=== PATIENT | female | born 1955 | race Two or more races ===

== ENCOUNTER 2021-03-02 15:17 | Inpatient (IN) | payer BC, SELFPAY ==
[2021-03-02] VITALS (8 sets, daily range): BP systolic 151–206; BP diastolic 64–87; PULSE 59–76; RESP 15–21; TEMP 36.2–38.1; O2SAT 95–99; BMI 44.9
--- NOTE | ~2021-03-02 | MR_ITS ---
EXAMINATION: MR MRCP wo/w con/w 3D wo ind DATE: 03/03/2021 12:57 INDICATION: Biliary duct dilatation. Right upper quadrant abdominal pain. TECHNIQUE: Magnetic resonance imaging (MRI) of the abdomen was performed without and with 20 mL Multi Maia intravenous contrast. Sequences included coronal T2-weighted FS FSE, coronal T2-weighted FSE, a xial T1-weighted LAVA, coronal FS FIESTA, axial dual-echo T1-weighted SPGR, coronal lava-FLEX, sagitt al T2-weighted FSE, axial T2-weighted FSE, and axial DWI. Thick-slab T2-weighted FSE images were obta ined for magnetic resonance cholangiopancreatography (MRCP). Maximum intensity projection 3-D reconst ructions of the volumetric data were created by the technologist. Postcontrast sequences included cor onal LAVA-flex and time course of axial T1-weighted LAVA. COMPARISON: CT abdomen and pelvis 03/02/2021 FINDINGS: ABDOMEN MRI: There is diffuse hepatic steatosis. There is moderate intrahepatic biliary duct dilatati on. There are gallstones in the gallbladder, which is distended. There is a gallstone in the gallblad alexia neck. Gallbladder wall thickening is noted. There is edema around the gallbladder. The spleen, pa ncreas, and adrenal glands are normal. There are cysts in the kidneys measuring up to 7 mm on the lef t. There are no dilated loops of bowel. There are no pathologically enlarged lymph nodes. There is no free intraperitoneal fluid. ABDOMEN MRCP: The common duct is dilated to 15 mm. No choledocholithiasis. IMPRESSION: 1. Acute cholecystitis. 2. Moderate intrahepatic and extrahepatic biliary duct dilatation. No choledocholithiasis identified. Reviewed, dictated and finalized at location A. IMPRESSION: 1. Acute cholecystitis. 2. Moderate intrahepatic and extrahepatic biliary duct dilatation. No choledoch olithiasis identified.
--- NOTE | ~2021-03-02 | XR_ITS ---
EXAMINATION: XR cholangiogram surg 1st inj DATE: 03/04/2021 13:50 INDICATION: Laparoscopic cholecystectomy TECHNIQUE: 104 fluoroscopic images of the right upper quadrant were obtained during intraoperative ch olangiography performed by the surgeon. I was not present in the operating room. Fluoroscopy exposure time was 57.1 seconds. COMPARISON: None. FINDINGS: The common bile duct and intrahepatic ducts are dilated. No choledocholithiasis is identifi ed. IMPRESSION: 1. Dilated common bile duct without evidence of stones. Reviewed, dictated and finalized at location B.
--- NOTE | ~2021-03-02 | CT_ITS ---
EXAMINATION: CT abdomen pelvis w con DATE: 03/02/2021 19:35 INDICATION: Abdominal pain. TECHNIQUE: Computed tomography (CT) of the abdomen and pelvis was performed with 100 mL Omnipaque-350 intravenous contrast. Automated exposure control and iterative reconstruction technique were employe d. The dose-length product was 1375.18 mGy-cm. COMPARISON: None FINDINGS: Mild discoid atelectasis at the lingula. Heart size is normal. No pericardial or pleural effusion. Ga llstones within the gallbladder with either edematous gallbladder wall thickening and/or pericholecys tic edema consistent with acute cholecystitis. The common bile duct is dilated to 13 mm and there is mild central intrahepatic biliary ductal dilation suggesting possibility of a distal obstructing ston e. Liver is otherwise normal. Spleen, pancreas and bilateral adrenal glands are normal. Symmetric viviane al parenchymal enhancement with no hydronephrosis. No abnormal bowel wall thickening or obstruction. Normal appendix. Bladder, anteverted uterus and bilateral adnexa are unremarkable. No free intraperit quick gas or fluid. No pathologically enlarged abdominal or pelvic lymphadenopathy. Small fat-contain ing left inguinal hernia. Anterior fusion at L5-S1. Severe lumbar facet osteoarthritis with posterior fusion bilaterally at L4-L5 and L5-S1. Severe osteitis pubis. IMPRESSION: 1. Cholelithiasis and acute cholecystitis with dilation of the common bile duct and central intrahepa tic biliary ducts suggesting possibility of distal obstructing stone. Correlate with liver function t ests. If this would affect clinical management could consider MRCP for further evaluation. Reviewed, dictated and finalized at location A. IMPRESSION: 1. Cholelithiasis and acute cholecystitis with dilation of the common bile duct and central intrahepatic biliary ducts suggesting possibility of distal obstru cting stone. Correlate with liver function tests. If this would affect clinical management could consider MRCP for further evaluation.
[2021-03-02 15:50] LABS: Basophils Percent Auto 0.1 % (0.2-1.2); Hematocrit 41.3 % (37.0-47.0); Immature Granulocyte Absolute 0.04 K/mm3 (0.00-0.031); Immature Granulocyte Percent A 0.3 % (0-0.5); Lymphocytes Absolute Auto 1.98 K/mm3 (0.9-3.2); Lymphocytes Percent Auto 16.5 % (18.3-44.2); Mean Corpuscular HGB Conc 33.9 g/dl (32-36); Mean Corpuscular Hemoglobin 29.4 pg (26-34); Mean Corpuscular Volume 86.6 fl (80-100); Mean Platelet Volume 9.3 fl (7.4-10.4); Monocytes Absolute Auto 0.5 K/mm3 (0.1-0.6); Monocytes Percent Auto 4.1 % (2.6-8.5); Neutrophils Absolute Auto 9.5 K/mm3 (1.3-6.7); Platelet Count Result 274 k/mm3 (150-375); Red Blood Count 4.77 M/mm3 (4.2-5.4); Red Cell Distribution Width 12.6 % (11.5-14.5)
[2021-03-02 16:08] LABS: Alanine Aminotransferase 22 U/L (4-35); Albumin Level 4.9 g/dL (3.5-5.1); Alkaline Phosphatase 70 U/L (38-126); Anion Gap 13 mmol/L (8-16); Aspartate Amino Transferase 25 U/L (14-36); Bilirubin,Total 0.6 mg/dL (0.2-1.3); Blood Urea Nitrogen 18 mg/dL (7-17); Calcium 10.4 mg/dL (8.4-10.2); Carbon Dioxide 24 mmol/L (22-30); Chloride 98 mmol/L (98-107); Estimated CRCL calculation 76 ml/min; Estimated Glomerular Filt Rate > 60; Glucose 190 mg/dL (65-110); Lipase 95 U/L (23-300); Potassium 3.3 mmol/L (3.4-5.0); Sodium 135 mmol/L (137-145)
[2021-03-02] MEDS: SODIUM CHLORIDE 0.9% IV 1,000 ML 150 ML IV CONT (18:38)
[2021-03-02] MEDS: MORPHINE SULFATE (*CRX) 4 MG/ML INJ IV PUSH ×2 (18:38→22:26)
[2021-03-02] MEDS: ONDANSETRON INJ 4 MG/2 ML VIAL IV PUSH ×2 (18:38→23:22)
[2021-03-02] MEDS: PANTOPRAZOLE SODIUM IV 40 MG VIAL IV PUSH (18:38)
[2021-03-02 19:21] LABS: Add Urine Microscopic? YES; Appearance Urine Clear (Clear); Bilirubin Urine Negative (Negative); Blood Urine 1+ (Negative); Color Urine Yellow (Yellow); Glucose Urine UA Negative (Negative); Ketones Urine 1+ mg/dL (Negative); Leukocyte Esterase Ur 1+ LEU/UL (Negative); Mucus Urine Rare /lpf; Nitrate Urine Negative (Negative); Protein Urine 2+ mg/dL (Negative); Specific Grav Ur 1.017 (1.001-1.035); Squamous Epithelial Cell Urine Few /hpf (Few); Urobilinogen Urine Negative mg/dL (<2.0)
--- NOTE | 2021-03-02 20:12 | ED.ABDPAIN ---
HPI - Abdominal Pain General Chief Complaint: Abdominal Pain Stated Complaint: abd pain Time Seen by Provider: 03/02/21 18:01 Source: patient and family Mode of arrival: wheelchair Limitations: language barrier History of Present Illness HPI narrative: 65-year-old Slovak. My with a history of hypertension, hyperlipidemia, diabetes was brought in by daughter with complaints of upper abdominal pain on and off for past 1 month daughter states that she has been giving xwyr-xek-tycrtlw acid suppressor for past 1 month however since last evening she has been having more pain had vomited once. She denied any fever or chills she states her pain has been more intense since this morning . MD elicited complaint: abdominal pain Pertinent past history: none Onset (ago): day(s) (1) Pain Consistency: constant Location: epigastric and RUQ Severity: moderate Quality: aching Radiation: none Migration to: no migration Exacerbating factors: nothing Relieving factors: nothing Associated symptoms: nausea and vomiting Related Data Allergies Allergy/AdvReac Type Severity Reaction Status Date / Time No Known Allergies Allergy Verified 03/02/21 20:23 Review of Systems Review of Systems: All systems reviewed & are unremarkable except as noted in HPI and below Constitutional: Constitutional: Reports no additional constitutional complaints Eyes: Eyes: Reports no additional eye complaints ENT: Reports system reviewed and no additional complaints, except as documented Cardiovascular: Cardiovascular: Reports no additional cardiovascular complaints Respiratory: Respiratory: Reports no additional respiratory complaints Gastrointestinal: Gastrointestinal: Reports as per HPI Musculoskeletal: Musculoskeletal: Reports no additional musculoskeletal complaints Neurologic: Reports system reviewed and no additional complaints, except as documented PMFSH Social History Social History Gender identity (if verbalized by the patient): Female Exam Narrative: GENERAL: Well-appearing, well-nourished, and in moderate amount of pain HEAD: Normocephalic, atraumatic. EYES: PERRLA and EOMI.. NECK: Supple. CHEST: Clear to auscultation. No respiratory distress. HEART: Regular rate and rhythm. No murmur heard. Normal peripheral pulses. ABDOMEN: Soft, moderate amount of tenderness in the epigastric and right upper quadrant area, nondistended, normal active bowel sounds. EXTREMITIES: Normal range of motion. No edema. SKIN: Warm, dry, no rash. NEURO: No focal deficits. Alert and oriented x3. PSYCH: Normal mood and affect. Course Course Emergency Course: Patient started feeling much better after pain medication. I have reviewed the lab, CT findings with the daughter. I discussed with Doctor Graham Alcala about this patient see the patient in consult. Vital Signs Vital signs: Vital Signs Temperature 36.2 C L 03/02/21 15:29 Pulse Rate 65 03/02/21 15:29 Respiratory Rate 16 03/02/21 15:29 Blood Pressure 180/81 H 03/02/21 15:29 Pulse Oximetry 98 03/02/21 15:29 Temperature 36.7 C 03/02/21 18:10 Pulse Rate 73 03/02/21 19:40 Respiratory Rate 16 03/02/21 19:40 Blood Pressure 164/68 H 03/02/21 19:40 Pulse Oximetry 95 03/02/21 19:40 MDM - Abdominal Pain MDM Narrative Medical decision making narrative: With a given history of upper abdominal pain do CBC chemistry and also do a CT of the abdomen to make sure she has no high-grade small bowel obstruction or she has perforated gastric ulcer or cholecystitis. Will given IV morphine for pain and IV fluids. Lab Data Result diagrams: 03/02/21 15:40 03/02/21 15:40 Labs: Lab Results 03/02/21 03/02/21 03/02/21 Range/Units 15:40 15:40 19:09 WBC 12.0 H (4.5-10.0) K/mm3 RBC 4.77 (4.2-5.4) M/mm3 Hgb 14.0 (12.0-15.0) g/dL Hct 41.3 (37.0-47.0) % MCV 86.6 (80-100) fl MCH 29.
[2021-03-02] MEDS: ERTAPENEM 1 GM/NS 50 ML 1 GM/50 ML BAG IVPB (20:52)
[2021-03-02] MEDS: SODIUM CHLORIDE 0.9% IV 1,000 ML 100 ML IV CONT (20:53)
--- NOTE | 2021-03-02 21:31 | PC.NURSE ---
Attempted to call report. RN not available. Will call back
[2021-03-02] MEDS: FAMOTIDINE 20 MG/2 ML VIAL IV PUSH (23:23)
--- NOTE | 2021-03-02 23:33 | PM.IMHP ---
H&P: HPI History of Present Illness Date/Time: 03/02/21 23:33 Chief Complaint: Abdominal pain Narrative: 65-year-old female with a history of hypertension, hyperlipidemia, diabetes was brought in by daughter with complaints of upper abdominal pain on and off for past 1 month however has been worsening since past 3 days. Has been using [id number]-uwcllfc as his pressure for the past month but over the past few days she has been vomiting and worsening belly pain. She denies any fever and chills. No diarrhea. She does not speak Azeri well and history is limited because of that. Most of the history is taken from ED records and from the patient Review of Systems Review of Systems: - CONSTITUTIONAL: Denies weight loss, fever and chills. - HEENT: Denies changes in vision and hearing - RESPIRATORY: Denies SOB and cough. - CV: Denies palpitations and CP. - GI: Reports abdominal pain, nausea, vomiting and denies diarrhea. - : Denies dysuria and urinary frequency. - MSK: Denies myalgia and joint pain. - SKIN: Denies rash and pruritus. - NEUROLOGICAL: Denies headache and syncope. - PSYCHIATRIC: Denies recent changes in mood. Denies anxiety and depression. All systems reviewed & are unremarkable except as noted in HPI and below Constitutional: Constitutional: Reports fatigue and Reports weakness Neurologic: Reports weakness Endocrine: Endocrine: Reports fatigue PMFSH Social History Social History Gender identity (if verbalized by the patient): Female Meds Home Medications and Allergies Home Medications Medication Instructions Recorded Confirmed Type CoQ10 SG 100 03/02/21 History carvedilol 03/02/21 History hawthorn correia mg PO 03/02/21 History hydrochlorothiazide 03/02/21 History levothyroxine 03/02/21 History lisinopril 03/02/21 History magnesium chloride mg PO 03/02/21 History metformin mg 03/02/21 History omeprazole 20 mg PO BID 03/02/21 History oxybutynin chloride 03/02/21 History sertraline mg 03/02/21 History simvastatin mg 03/02/21 History Allergies Allergy/AdvReac Type Severity Reaction Status Date / Time No Known Allergies Allergy Verified 03/02/21 20:23 Vital Signs Vital Signs - 24 hr 03/02/21 15:29 03/02/21 18:10 03/02/21 19:40 Temperature 97.2 F L 98.1 F Pulse Rate 65 68 73 Respiratory Rate 16 21 H 16 Blood Pressure 180/81 H 206/87 H 164/68 H Pulse Oximetry 98 99 95 03/02/21 20:15 03/02/21 21:07 03/02/21 21:15 Temperature Pulse Rate 72 69 76 Respiratory Rate 17 17 15 Blood Pressure 151/64 H Pulse Oximetry 95 96 98 03/02/21 22:36 03/02/21 22:50 Temperature 100.5 F H Pulse Rate 73 59 L Respiratory Rate 18 20 Blood Pressure 151/64 H 161/74 H Pulse Oximetry 97 97 Exam Narrative: GENERAL: The patient is well developed, not in acute distress HEENT: Nonicteric sclerae, PERRLA, EOMI. Oropharynx clear. Moist mucous membranes. Conjunctivae appear well perfused. CHEST: Chest wall is nontender. HEART: Regular rate and rhythm without murmur, rubs, or gallops LUNGS: Clear to auscultation bilaterally. no respiratory distress ABDOMEN: Soft, distended, tender epigastrium and right upper quadrant area no organomegaly no rigidity SKIN: No rash, no excessive bruising, petechiae, or purpura. NEUROLOGIC: Cranial nerves II-XII intact, alert and oriented x 3, no gross motor deficits EXTREMITIES: no edema, cyanosis or clubbing Extrem: General: normal exam except as noted and no edema H&P: Results Labs Labs: Short CBC 03/02/21 Range/Units 15:40 WBC 12.0 H (4.5-10.0) K/mm3 Hgb 14.0 (12.0-15.0) g/dL Hct 41.3 (37.0-47.0) % Plt Count 274 (150-375) k/mm3 BMP 03/02/21 15:40 Sodium 135 L Potassium 3.3 L Chloride 98 Carbon Dioxide 24 BUN 18 H Creatinine 0.80 Glucose 190 H Calcium 10.4 H Liver Function 03/02/21 Range/Units 15:40 Total Bilirubin
[2021-03-03] MEDS: MORPHINE SULFATE (*CRX) 4 MG/ML INJ IV PUSH ×7 (01:27→22:50)
--- NOTE | 2021-03-03 02:02 | ADMGEN ---
This patient, Naresh Houston, was admitted to [facility] Surg Room 321-02. Patient/family oriented to hospital policies and general routines including ID bracelet, bed and alarms, visiting hours, pain management, procedures, bathroom and other care routines, personal items, smoking policy, room service/diet, and visiting hours. Information on how to activate the Rapid Response Team has been discussed. Patient/Family are encouraged to report perceived risks to care and to ask questions if they do not understand what they are told or what they should do.
[2021-03-03 02:13] VITALS: O2SAT 97
[2021-03-03] MEDS: ONDANSETRON INJ 4 MG/2 ML VIAL IV PUSH ×4 (04:41→18:57)
[2021-03-03 05:46] VITALS: BP 119/51; PULSE 69; RESP 20; TEMP 37.1; O2SAT 93
[2021-03-03 07:18] LABS: Basophils Percent Auto 0.2 % (0.2-1.2); Hematocrit 38.6 % (37.0-47.0); Hemoglobin 12.5 g/dL (12.0-15.0); Immature Granulocyte Absolute 0.04 K/mm3 (0.00-0.031); Immature Granulocyte Percent A 0.3 % (0-0.5); Lymphocytes Absolute Auto 1.28 K/mm3 (0.9-3.2); Lymphocytes Percent Auto 10.4 % (18.3-44.2); Mean Corpuscular HGB Conc 32.4 g/dl (32-36); Mean Corpuscular Volume 89.6 fl (80-100); Mean Platelet Volume 9.6 fl (7.4-10.4); Monocytes Absolute Auto 0.9 K/mm3 (0.1-0.6); Neutrophils Absolute Auto 10.1 K/mm3 (1.3-6.7); Neutrophils Percent Auto 82.1 % (45.5-73.1); Platelet Count Result 235 k/mm3 (150-375); Red Blood Count 4.31 M/mm3 (4.2-5.4); White Blood Count 12.3 K/mm3 (4.5-10.0)
[2021-03-03 07:47] LABS: Alanine Aminotransferase 28 U/L (4-35); Albumin Level 3.8 g/dL (3.5-5.1); Alkaline Phosphatase 56 U/L (38-126); Anion Gap 10 mmol/L (8-16); Aspartate Amino Transferase 40 U/L (14-36); Bilirubin,Total 0.4 mg/dL (0.2-1.3); Blood Urea Nitrogen 12 mg/dL (7-17); Calcium 8.8 mg/dL (8.4-10.2); Carbon Dioxide 29 mmol/L (22-30); Chloride 95 mmol/L (98-107); Estimated CRCL calculation 70 ml/min; Estimated Glomerular Filt Rate > 60; Glucose 166 mg/dL (65-110); Potassium 3.5 mmol/L (3.4-5.0); Sodium 134 mmol/L (137-145)
[2021-03-03] MEDS: FAMOTIDINE 20 MG/2 ML VIAL IV PUSH ×2 (08:40→22:51)
[2021-03-03] MEDS: PANTOPRAZOLE SODIUM IV 40 MG VIAL IV PUSH (08:40)
[2021-03-03 09:00] VITALS: BP 133/50; PULSE 72; RESP 18; TEMP 36.2; O2SAT 98
--- NOTE | 2021-03-03 11:41 | PM.CNGS ---
Assessment and Plan Assessment and plan (1) Acute cholecystitis due to biliary calculus: Code(s): K80.00 - Calculus of gallbladder with acute cholecystitis without obstruction Status: Acute Assessment and Plan: CT scan reviewed and discussed with the patient and her son in detail. She has evidence of acute cholecystitis with cholelithiasis. Also noted is a dilated CBD measuring up to 13 mm and central intrahepatic biliary ducts suggesting possibility of distal obstructing stone. LFTs are normal and she has mild leukocytosis. Normal lipase. GI has been consulted and an MRCP has been ordered for today. If there is evidence of choledocholithiasis, then will allow GI to decipher their plan of care before proceeding with surgical intervention. I discussed the pathophysiology of gallbladder disease and potential complications associated with this. Prior to this acute episode, it sounds like she has been dealing with more mild symptoms for years, which could also be related to the gallbladder or also other etiologies. We discussed treatment options at this point. She will likely ultimately need a cholecystectomy, which would be by Dr. Francis. Description of a laparoscopic cholecystectomy, the risks, benefits, expected outcomes, and expected recovery were discussed with the patient in detail. All questions were answered. We will decide on timing of surgery after GI's evaluation. Would agree with IV Zosyn, IV fluids, analgesics, and NPO status while pending the MRCP. Thank you for allowing us to see the patient in consultation and we will continue to follow along with you. (2) Choledocholithiasis: Code(s): K80.50 - Calculus of bile duct without cholangitis or cholecystitis without obstruction Status: Acute Assessment and Plan: Dilated CBD on imaging up to 13 mmm, although normal LFTs. GI consulted. MRCP planned for today. May need an ERCP if choledocholithiasis is noted. (3) Diabetes mellitus type 2 in nonobese: Code(s): E11.9 - Type 2 diabetes mellitus without complications Status: Acute Assessment and Plan: Increases risks of surgery. (4) Hypertension: Code(s): I10 - Essential (primary) hypertension Status: Acute (5) Hyperlipidemia: Code(s): E78.5 - Hyperlipidemia, unspecified Status: Acute (6) Morbid obesity: Code(s): E66.01 - Morbid (severe) obesity due to excess calories Status: Acute Assessment and Plan: Increases surgical risks. Additional Plan I have discussed the patient's case and plan of care with Dr. Francis. History of Present Illness Consult details Consult date: 03/03/21 Reason for consult: other (Acute cholecystitis and abnormal findings on CT scan of biliary system) Requesting physician: Devang Rodriguez MD Narrative: This is a 65-year-old morbidly obese female who speaks Bermudian and has a history of hypertension, hyperlipidemia, and type 2 diabetes. Her son and POA, Celestino, is at the bedside and is translating for the patient per her request. He speaks fluent Polish and is able to translate during our discussion, which they requested rather than using the Easy[employer] device. The patient has apparently been dealing with upper abdominal pain for many years. Typically this is more mild and will come and go. She was told about 17 years ago that she had cholelithiasis, incidentally found on imaging while she was living in [place]. Over the past year, she has felt that her symptoms have become progressively worse and more frequent. Two days ago, she had a sudden onset of worsening upper abdominal pain in the evening after dinner. She had eaten a baked [place]ian reynolds dish with meat and salad. She began to have nausea and vomiting through the night. The pain continued yesterday, and she attempted to take omeprazole for her symptoms, which did not relieve her pain. She felt chilled and feverish, but did not take her temperature. Ultimately, she came into the ER
[2021-03-03 14:00] VITALS: BP 143/53; PULSE 69; RESP 16; TEMP 36.8; O2SAT 94
--- NOTE | 2021-03-03 16:39 | WPDANESEPP ---
Anes - Eval Pre Procedure Procedure: Operation Date: 03/04/21 12:00 Proposed Procedures p Laparoscopic Cholecystectomy with Intraoperative Cholangiogram - Edu Francis MD Date/Time: 03/03/21 16:39 Pre Op Diagnosis: Acute Cholecystitis Patient Data Age: 65 Gender: F Height: 1.57 m Weight: 111.5 kg Last Vital Signs Temp 98.3 F 03/03/21 14:00 Pulse 69 03/03/21 14:00 Resp 16 03/03/21 14:00 BP 143/53 H 03/03/21 14:00 Pulse Ox 94 03/03/21 14:00 Allergies Allergy/AdvReac Type Severity Reaction Status Date / Time No Known Allergies Allergy Verified 03/02/21 20:23 Home Medications Medication Instructions Recorded Confirmed Type CoQ10 SG 100 200 mg PO DAILY 03/02/21 03/03/21 History carvedilol 12.5 mg PO BID 03/02/21 03/03/21 History hawthorn correia 565 mg PO DAILY 03/02/21 03/03/21 History hydrochlorothiazide 25 mg PO DAILY 03/02/21 03/03/21 History lisinopril 40 mg PO DAILY 03/02/21 03/03/21 History magnesium chloride mg PO 03/02/21 History metformin 1,000 mg PO BID 03/02/21 03/03/21 History omeprazole 20 mg PO BID 03/02/21 03/03/21 History oxybutynin chloride 5 mg PO BID 03/02/21 03/03/21 History sertraline 50 mg PO BID 03/02/21 03/03/21 History simvastatin 20 mg PO DAILY 03/02/21 03/03/21 History Laboratory Tests 03/02/21 03/03/21 03/03/21 19:09 06:47 06:47 WBC 12.3 K/mm3 H K/mm3 (4.5-10.0) RBC 4.31 M/mm3 M/mm3 (4.2-5.4) Hgb 12.5 g/dL g/dL (12.0-15.0) Hct 38.6 % % (37.0-47.0) MCV 89.6 fl fl (80-100) MCH 29.0 pg pg (26-34) MCHC 32.4 g/dl g/dl (32-36) RDW 13.0 % % (11.5-14.5) Plt Count 235 k/mm3 k/mm3 (150-375) MPV 9.6 fl fl (7.4-10.4) Immature Gran % (Auto) 0.3 % % (0-0.5) Neut % (Auto) 82.1 % H % (45.5-73.1) Lymph % (Auto) 10.4 % L % (18.3-44.2) [place] % (Auto) 7.0 % % (2.6-8.5) Eos % (Auto) 0.0 % % (0-4.4) Baso % (Auto) 0.2 % % (0.2-1.2) Lymph # (Auto) 1.28 K/mm3 K/mm3 (0.9-3.2) [place] # (Auto) 0.9 K/mm3 H K/mm3 (0.1-0.6) Eos # (Auto) 0.0 K/mm3 K/mm3 (0-0.3) Baso # (Auto) 0.0 K/mm3 K/mm3 (0.0-0.1) Abs Immat Gran (auto) 0.04 K/mm3 H K/mm3 (0.00-0.031) Absolute Neuts (auto) 10.1 K/mm3 H K/mm3 (1.3-6.7) Absolute Nucleated RBC 0.0 K/mm3 K/mm3 (0.0-0.012) Nucleated RBC % 0.0 % % (0.0-0.2) Sodium 134 mmol/L L mmol/L (137-145) Potassium 3.5 mmol/L mmol/L (3.4-5.0) Chloride 95 mmol/L L mmol/L (98-107) Carbon Dioxide 29 mmol/L mmol/L (22-30) Anion Gap 10 mmol/L mmol/L (8-16) BUN 12 mg/dL D mg/dL (7-17) Creatinine 0.80 mg/dL mg/dL (0.7-1.0) Estim Creat Clear Calc 70 ml/min ml/min Estimated GFR > 60 (59 - ) Glucose 166 mg/dL H mg/dL (65-110) Calcium 8.8 mg/dL mg/dL (8.4-10.2) Total Bilirubin 0.4 mg/dL mg/dL (0.2-1.3) AST 40 U/L H U/L (14-36) ALT 28 U/L U/L (4-35) Alkaline Phosphatase 56 U/L U/L (38-126) Total Protein 7.0 g/dL g/dL (6.3-8.2) Albumin 3.8 g/dL g/dL (3.5-5.1) Urine Color Yellow (Yellow) Urine Appearance Clear (Clear) Urine pH 7.0 (5.0-9.0) Ur Specific [place] 1.017 (1.001-1.035) Urine Protein 2+ mg/dL H mg/dL (Negative) Urine Glucose (UA) Negative mg/dL mg/dL (Negative) Urine Ketones 1+ mg/dL H mg/dL (Negative) Ur Blood (Man) 1+ H (Negative) Urine Nitrate Negative (Negative) Urine Bilirubin Negative (Negative) Urine Urobilinogen Negative mg/dL mg/dL (<2.0) Leukocyte Esterase Rfl 1+ ABIGAIL/UL H ABIGAIL/UL (Negative) Urine RBC 6-10 /hpf H /hpf (0-2)
--- NOTE | 2021-03-03 16:41 | ECG_ITS ---
Measurements Intervals [place] Rate: 68 P: 65 UT: 160 QRS: -48 QRSD: 138 T: 32 QT: 414 QTc: 441 Interpretive Statements SINUS RHYTHM RIGHT BUNDLE BRANCH BLOCK LEFT ANTERIOR FASCICULAR BLOCK LEFT VENTRICULAR HYPERTROPHY AND ST-T CHANGE BORDERLINE T WAVE ABNORMALITY- ANTERIOR LEADS ABNORMAL ECG Electronically Signed On 03-03-2021 19:35:19 CDT by Brent Pizarro D.O.
--- NOTE | 2021-03-03 18:04 | WPDGICN ---
Assessment and Plan Assessment and plan (1) Cholecystitis: Code(s): K81.9 - Cholecystitis, unspecified Status: Acute Assessment and Plan: on antibiotics and will have lap jesus tomorrow- probably try IOC to assess biliary system mrcp did not reveal filling defects, no obvious stone in bile duct and had normal liver enzymes (2) Dilated bile duct: Code(s): K83.8 - Other specified diseases of biliary tract Status: Acute (3) Upper abdominal pain: Code(s): R10.10 - Upper abdominal pain, unspecified Status: Acute Assessment and Plan: controlled with medical management (4) Leukocytosis: Code(s): D72.829 - Elevated white blood cell count, unspecified Status: Acute Assessment and Plan: on abx (5) Diabetes mellitus: Code(s): E11.9 - Type 2 diabetes mellitus without complications Status: Acute (6) Morbid obesity: Code(s): E66.01 - Morbid (severe) obesity due to excess calories Status: Acute (7) Hypertension: Code(s): I10 - Essential (primary) hypertension Status: Acute GI Consult Note Consult date/time: 03/03/21 18:04 Reason for consult: cholecystitis, dilated bile duct HPI: Naresh Houston is a 65 year old female with history of hypertension, hyperlipidemia, diabetes was brought in by daughter with worsening pain in right upper abdominal for almost a month but worsened last 2 days, it was severe, also report of nausea and vomiting. She is originally from [facility] and does not speak much [place]ian. CT scan a/p reviewed, cholelithiasis and acute cholecystitis with dilation of the common bile duct and central intrahepatic biliary ducts suggesting possibility of distal obstructing stone. This was followed by MRCP that did not reveal choledocholiathisis. She is better with pain management and antibiotics. Also had mild leukocytosis, liver enzymes normal. Review of Systems Constitutional: Constitutional: Denies weakness Eyes: Eyes: Denies blurry vision ENT: Reports Normal hearing present Cardiovascular: Cardiovascular: Denies chest pain Respiratory: Respiratory: Denies dyspnea Gastrointestinal: Gastrointestinal: Reports abdominal pain and Reports nausea Genitourinary: Genitourinary: Denies hematuria Musculoskeletal: Musculoskeletal: Denies neck pain Integumentary/Breasts: Skin/Breast: Denies dry skin Neurologic: Denies headache(s) Psychiatric: Psychiatric: Denies behavioral changes [facility] Past Medical History Medical History (Updated 03/03/21 @ 18:08 by Franck Doss MD) Acute cholecystitis due to biliary calculus Anxiety and depression Cholecystitis Choledocholithiasis Diabetes mellitus Diabetes mellitus type 2 in nonobese Dilated bile duct GERD (gastroesophageal reflux disease) Hyperlipidemia Hypertension Leukocytosis Morbid obesity Upper abdominal pain Surgical History Surgical History No pertinent past surgical history Social History Social History Social History: From [place] and speaks Mongolian. Her son, Celestino, and his are her healthcare [id number]. [place] about 7-8 years ago. Smoking status: Never smoker Alcohol intake: never Substance use: never Living arrangements: with family Gender identity (if verbalized by the patient): Female Spiritual care concerns: No Meds Home Medications and Allergies Home Medications Medication Instructions Recorded Confirmed Type CoQ10 SG 100 200 mg PO DAILY 03/02/21 03/03/21 History carvedilol 12.5 mg PO BID 03/02/21 03/03/21 History hawthorn correia 565 mg PO DAILY 03/02/21 03/03/21 History hydrochlorothiazide 25 mg PO DAILY 03/02/21 03/03/21 History lisinopril 40 mg PO DAILY 03/02/21 03/03/21 History magnesium chloride mg PO 03/02/21 History metformin 1,000 mg PO BID 03/02/2102/20
--- NOTE | 2021-03-03 19:13 | PM.IMPN ---
Progress Note: A&P Assessment and Plan (1) Diabetes mellitus: Qualifiers: Diabetes mellitus type: type 2 Diabetes mellitus buttermaker insulin use: unspecified nursing home insulin use status Diabetes mellitus complication status: with other specified complication Qualified Code(s): E11.69 - Type 2 diabetes mellitus with other specified complication Code(s): E11.9 - Type 2 diabetes mellitus without complications Status: Acute (2) Leukocytosis: Qualifiers: Leukocytosis type: unspecified Qualified Code(s): D72.829 - Elevated white blood cell count, unspecified Code(s): D72.829 - Elevated white blood cell count, unspecified Status: Acute (3) Upper abdominal pain: Code(s): R10.10 - Upper abdominal pain, unspecified Status: Acute (4) Dilated bile duct: Code(s): K83.8 - Other specified diseases of biliary tract Status: Acute (5) Cholecystitis: Code(s): K81.9 - Cholecystitis, unspecified Status: Acute (6) Acute cholecystitis due to biliary calculus: Code(s): K80.00 - Calculus of gallbladder with acute cholecystitis without obstruction Status: Acute (7) Diabetes mellitus type 2 in nonobese: Code(s): E11.9 - Type 2 diabetes mellitus without complications Status: Acute (8) Hyperlipidemia: Qualifiers: Hyperlipidemia type: unspecified Qualified Code(s): E78.5 - Hyperlipidemia, unspecified Code(s): E78.5 - Hyperlipidemia, unspecified Status: Acute (9) Hypertension: Qualifiers: Hypertension type: unspecified Qualified Code(s): I10 - Essential (primary) hypertension Code(s): I10 - Essential (primary) hypertension Status: Acute (10) Transaminitis: Code(s): R74.01 - Elevation of levels of liver transaminase levels Status: Acute Additional Plan Acute cholecystitis: CT abdomen as follows: Cholelithiasis and acute cholecystitis with dilation of the common bile duct and central intrahepatic biliary ducts suggesting possibility of distal obstructing stone. Correlate with liver function tests. If this would affect clinical management could consider MRCP for further evaluation. MRCP as follows: 1. Acute cholecystitis. 2. Moderate intrahepatic and extrahepatic biliary duct dilatation. No choledocholithiasis identified. General surgery and GI on board Continue IV Zosyn NPO Plan for laparoscopic cholecystectomy tomorrow Time Spent With Patient Time with patient: 25 - 35 minutes Subjective Date/time seen: 03/03/21 19:13 65-year-old female with past medical history significant for hypertension, hyperlipidemia, type 2 diabetes mellitus who presented with upper abdominal pain and is being managed as a case of acute cholecystitis. Initial CT scan performed revealed some concerns regarding ductal dilation of bile duct which was followed up with an MRCP which did not reveal any such findings. Patient is currently on IV Zosyn and is being followed by GI and General surgery. Plans for laparoscopic cholecystectomy tomorrow. Review of Systems Review of Systems: A 10 point review of system was conducted which was otherwise negative Exam Narrative: GENERAL: The patient is well developed, not in acute distress HEENT: Nonicteric sclerae, PERRLA, EOMI. Oropharynx clear. Moist mucous membranes. Conjunctivae appear well perfused. CHEST: Chest wall is nontender. HEART: Regular rate and rhythm without murmur, rubs, or gallops LUNGS: Clear to auscultation bilaterally. no respiratory distress ABDOMEN: Soft, distended, tender epigastrium and right upper quadrant area no organomegaly no rigidity SKIN: No rash, no excessive bruising, petechiae, or purpura. NEUROLOGIC: Cranial nerves II-XII intact, alert and oriented x 3, no gross motor deficits EXTREMITIES: no edema, cyanosis or clubbing Objective Data Vital Signs Vital Signs: Vital Signs - 24 hr 03/02/21 19:40
[2021-03-03 20:00] VITALS: PULSE 85; RESP 18; O2SAT 94
[2021-03-03 22:00] VITALS: BP 137/56; PULSE 85; RESP 18; TEMP 36.7; O2SAT 94
[2021-03-04] VITALS (9 sets, daily range): BP systolic 105–150; BP diastolic 53–73; PULSE 76–104; RESP 12–18; TEMP 36.5–37.1; O2SAT 90–100
[2021-03-04] MEDS: MORPHINE SULFATE (*CRX) 4 MG/ML INJ IV PUSH ×2 (06:03→08:42)
[2021-03-04 06:39] LABS: Basophils Percent Auto 0.2 % (0.2-1.2); Hematocrit 38.1 % (37.0-47.0); Hemoglobin 12.4 g/dL (12.0-15.0); Immature Granulocyte Absolute 0.07 K/mm3 (0.00-0.031); Immature Granulocyte Percent A 0.5 % (0-0.5); Lymphocytes Absolute Auto 2.17 K/mm3 (0.9-3.2); Mean Corpuscular HGB Conc 32.5 g/dl (32-36); Mean Corpuscular Hemoglobin 29.7 pg (26-34); Mean Corpuscular Volume 91.1 fl (80-100); Mean Platelet Volume 9.8 fl (7.4-10.4); Monocytes Absolute Auto 1.1 K/mm3 (0.1-0.6); Monocytes Percent Auto 7.2 % (2.6-8.5); Neutrophils Absolute Auto 12.1 K/mm3 (1.3-6.7); Neutrophils Percent Auto 78.1 % (45.5-73.1); Platelet Count Result 220 k/mm3 (150-375); Red Blood Count 4.18 M/mm3 (4.2-5.4); Red Cell Distribution Width 13.3 % (11.5-14.5); White Blood Count 15.5 K/mm3 (4.5-10.0)
[2021-03-04 07:38] LABS: Alanine Aminotransferase 35 U/L (4-35); Albumin Level 3.4 g/dL (3.5-5.1); Alkaline Phosphatase 62 U/L (38-126); Anion Gap 10 mmol/L (8-16); Aspartate Amino Transferase 30 U/L (14-36); Bilirubin,Total 0.6 mg/dL (0.2-1.3); Blood Urea Nitrogen 11 mg/dL (7-17); Calcium 8.7 mg/dL (8.4-10.2); Carbon Dioxide 30 mmol/L (22-30); Chloride 96 mmol/L (98-107); Estimated CRCL calculation 57 ml/min; Estimated Glomerular Filt Rate 55; Glucose 122 mg/dL (65-110); Potassium 3.2 mmol/L (3.4-5.0); Sodium 136 mmol/L (137-145)
[2021-03-04] MEDS: ONDANSETRON INJ 4 MG/2 ML VIAL IV PUSH (08:42)
[2021-03-04] MEDS: FAMOTIDINE 20 MG/2 ML VIAL IV PUSH (08:43)
[2021-03-04] MEDS: PANTOPRAZOLE SODIUM IV 40 MG VIAL IV PUSH (08:43)
[2021-03-04] MEDS: SODIUM CHLORIDE 0.9% IV 1,000 ML 125 ML IV CONT (10:25)
[2021-03-04] MEDS: LACTATED RINGERS 1,000 ML 30 ML IV CONT ×2 (11:00→14:49)
--- NOTE | 2021-03-04 11:55 | SUR.PREOP ---
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
--- NOTE | 2021-03-04 12:11 | WPDHPUPDATE1 ---
History and Physical Update Update Date/Time: 03/04/21 12:11 History and Physical has been reviewed, including an updated exam of the patient. There are NO changes in the patient's condition. Risks, benefits, and alternatives have been discussed and questions answered. Patient agrees to proceed with procedure.
--- NOTE | 2021-03-04 12:19 | WPDANESEPPF ---
Anes - Initial Pre Proc Eval Procedure: Operation Date: 03/04/21 12:00 Proposed Procedures p Laparoscopic Cholecystectomy with Intraoperative Cholangiogram - Edu Fracnis MD Date/Time: 03/04/21 12:19 Surgeon: Gurvinder Schmitt MD Pre Op Diagnosis: Acute Cholecystitis Patient Data Age: 65 Gender: F Height: 1.57 m Weight: 111.5 kg Last Vital Signs Temp 98.2 F 03/04/21 06:00 Pulse 104 H 03/04/21 06:00 Resp 18 03/04/21 06:00 BP 144/73 H 03/04/21 06:00 Pulse Ox 96 03/04/21 06:00 Allergies Allergy/AdvReac Type Severity Reaction Status Date / Time No Known Allergies Allergy Verified 03/02/21 20:23 Home Medications Medication Instructions Recorded Confirmed Type CoQ10 SG 100 200 mg PO DAILY 03/02/21 03/03/21 History carvedilol 12.5 mg PO BID 03/02/21 03/03/21 History hawthorn correia 565 mg PO DAILY 03/02/21 03/03/21 History hydrochlorothiazide 25 mg PO DAILY 03/02/21 03/03/21 History lisinopril 40 mg PO DAILY 03/02/21 03/03/21 History magnesium chloride mg PO 03/02/21 History metformin 1,000 mg PO BID 03/02/21 03/03/21 History omeprazole 20 mg PO BID 03/02/21 03/03/21 History oxybutynin chloride 5 mg PO BID 03/02/21 03/03/21 History sertraline 50 mg PO BID 03/02/21 03/03/21 History simvastatin 20 mg PO DAILY 03/02/21 03/03/21 History Laboratory Tests 03/03/21 03/04/21 03/04/21 17:38 05:55 05:55 WBC 15.5 K/mm3 H K/mm3 (4.5-10.0) RBC 4.18 M/mm3 L M/mm3 (4.2-5.4) Hgb 12.4 g/dL g/dL (12.0-15.0) Hct 38.1 % % (37.0-47.0) MCV 91.1 fl fl (80-100) MCH 29.7 pg pg (26-34) MCHC 32.5 g/dl g/dl (32-36) RDW 13.3 % % (11.5-14.5) Plt Count 220 k/mm3 k/mm3 (150-375) MPV 9.8 fl fl (7.4-10.4) Immature Gran % (Auto) 0.5 % % (0-0.5) Neut % (Auto) 78.1 % H % (45.5-73.1) Lymph % (Auto) 14.0 % L % (18.3-44.2) [place] % (Auto) 7.2 % % (2.6-8.5) Eos % (Auto) 0.0 % % (0-4.4) Baso % (Auto) 0.2 % % (0.2-1.2) Lymph # (Auto) 2.17 K/mm3 K/mm3 (0.9-3.2) [place] # (Auto) 1.1 K/mm3 H K/mm3 (0.1-0.6) Eos # (Auto) 0.0 K/mm3 K/mm3 (0-0.3) Baso # (Auto) 0.0 K/mm3 K/mm3 (0.0-0.1) Abs Immat Gran (auto) 0.07 K/mm3 H K/mm3 (0.00-0.031) Absolute Neuts (auto) 12.1 K/mm3 H K/mm3 (1.3-6.7) Absolute Nucleated RBC 0.0 K/mm3 K/mm3 (0.0-0.012) Nucleated RBC % 0.0 % % (0.0-0.2) Sodium 136 mmol/L L mmol/L (137-145) Potassium 3.2 mmol/L L mmol/L (3.4-5.0) Chloride 96 mmol/L L mmol/L (98-107) Carbon Dioxide 30 mmol/L mmol/L (22-30) Anion Gap 10 mmol/L mmol/L (8-16) BUN 11 mg/dL mg/dL (7-17) Creatinine 1.00 mg/dL mg/dL (0.7-1.0) Estim Creat Clear Calc 57 ml/min ml/min Estimated GFR 55 L (59 - ) Glucose 122 mg/dL H mg/dL (65-110) Calcium 8.7 mg/dL mg/dL (8.4-10.2) Total Bilirubin 0.6 mg/dL mg/dL (0.2-1.3) AST 30 U/L U/L (14-36) ALT 35 U/L U/L (4-35) Alkaline Phosphatase 62 U/L U/L (38-126) Total Protein 6.0 g/dL L g/dL (6.3-8.2) Albumin 3.4 g/dL L g/dL (3.5-5.1) Blood Type B Positive Antibody Screen Negative Patient hx anesthesia problems: none Family hx anesthesia problems: none PMFSH Past Medical History Medical History (Updated 03/03/21 @ 19:18 by Mary Boogie MD) Acute cholecystitis due to biliary calculus Anxiety and depression Cholecystitis Choledocholithiasis Diabetes mellitus Diabetes mellitus type 2 in nonobese Dilated bile duct GERD (gastroesophageal reflux disease) Hyperlipidemia Hypertension Leukocytosis Morbid obesity Upper abdominal pain Surgical History Surgical History (Reviewed 03/03/21 @ 16:43 by Dudley
[2021-03-04] MEDS: BUPIVACAINE/EPINEPHRINE 0.5% 30 ML VIAL INFILTRATE (13:08)
--- NOTE | 2021-03-04 16:21 | W.PM.PROC2 ---
Procedure Note - Detailed Date of Procedure 03/04/21 Pre-op Diagnosis Acute on chronic cholecystitis, cholelithiasis, dilated common bile duct Post-op Diagnosis same Procedure Performed Laparoscopic cholecystectomy with intraoperative cholangiogram Surgeon Edu Francis MD Production Broaching Machine Operator Dilshad MATA Anesthesia general and local (0.5% Marcaine with epinephrine) Indications Patient is a 65-year-old woman who is known to have gallstones and gallbladder disease for many years. Recently her pain has been much more severe and persistent. She was admitted on 03/02 2021. Despite antibiotics analgesics and IV fluids, she has continued to have right upper quadrant pain and tenderness. She had a very dilated, 13 mm, common bile duct on CT scan. MRCP done yesterday did not show evidence of common bile duct stones. She is taken to surgery now for laparoscopic cholecystectomy as well as intraoperative cholangiogram. Findings Severe chronic cholecystitis with edema and acute inflammation as well. The gallbladder wall was extremely thickened. There were numerous stones in the gallbladder. There were dense adhesions in the cholecystohepatic triangle. Intraoperative cholangiogram as well as intraoperative findings showed a very dilated common bile duct. However contrast did flow into the duodenum and no stones were noted on the cholangiogram. Liver appeared normal. Description of Procedure Patient was taken to surgery and induced into general anesthesia. The abdomen was prepped and draped. Trocars were placed in the usual fashion using 0.5% Marcaine with epinephrine an applied Medical optical trocars. Once insufflation was carried out, we took down inflammatory adhesions around the gallbladder. The gallbladder was extremely dilated and the wall was quite thickened. I initially tried to decompress the gallbladder with laparoscopic aspirator. The contents were too thick to suction away. I then enlarged the opening and used the suction tip which helped decompress it a bit more but the gallbladder was literally packed with stones and remained distended due to this. We then continued to take down adhesions and retract the gallbladder anterosuperiorly. The gallbladder was so full of stones that it was very difficult to grasp. None the less with continued dissection and temps at retraction, we were able to elevate it and somewhat expose the cholecystohepatic triangle. I placed another 5 mm port in the left mid abdomen. Through here we retracted the duodenum to expose the infundibulum and triangle of Calot better. Dissection was then carried out in the cholecystohepatic triangle, the cystic duct was quite dilated as was the common bile duct. It was relatively short as well. It was dissected thoroughly. I then dissected some of the medial wall of the gallbladder and lateral wall of the gallbladder. Eventually the cystic artery was found. I dissected beyond this and critical view was achieved. I securely clipped and divided the cystic artery. I dissected the junction of the cystic duct with the gallbladder. I then used the cystic duct scissors and opened the cystic duct near its junction with the gallbladder. A cholangiogram catheter was then able to be passed into the cystic duct. We completed cholangiograms using cine fluoroscopy. I spoke with the radiologist after their completion. Although the common bile duct was very dilated, there was duodenal filling and no evidence of stones. We removed the cholangiogram catheter. I clipped the cystic duct near the gallbladder. I then divided the cystic duct. I used a Vicryl endoloop to ligate the cystic duct stump. We then elevated infundibulum of the gallbladder and began dissecting it off the liver. This was done using combination of blunt dissection and cautery dissection. Near the fundus of the gallbladder, some of the liver bed was entered but with little bleeding. Eventually the gallbladder was completely edgar
[2021-03-04] MEDS: HYDROcodone/acetaminophen (*CRX) 5-325 MG TABLET 1 TAB PO (17:06)
[2021-03-04] MEDS: LACTATED RINGERS 1,000 ML 100 ML IV CONT (18:33)
[2021-03-04 18:34] LABS: Glucose Point of Care 170 mg/dl (65-105)
--- NOTE | 2021-03-04 18:37 | PM.IMPN ---
Progress Note: A&P Assessment and Plan (1) Transaminitis: Code(s): R74.01 - Elevation of levels of liver transaminase levels Status: Acute (2) Leukocytosis: Qualifiers: Leukocytosis type: unspecified Qualified Code(s): D72.829 - Elevated white blood cell count, unspecified Code(s): D72.829 - Elevated white blood cell count, unspecified Status: Acute (3) Upper abdominal pain: Code(s): R10.10 - Upper abdominal pain, unspecified Status: Acute (4) Dilated bile duct: Code(s): K83.8 - Other specified diseases of biliary tract Status: Acute (5) Cholecystitis: Code(s): K81.9 - Cholecystitis, unspecified Status: Acute (6) Acute cholecystitis due to biliary calculus: Code(s): K80.00 - Calculus of gallbladder with acute cholecystitis without obstruction Status: Acute (7) Diabetes mellitus type 2 in nonobese: Code(s): E11.9 - Type 2 diabetes mellitus without complications Status: Acute (8) Morbid obesity: Code(s): E66.01 - Morbid (severe) obesity due to excess calories Status: Acute (9) Hyperlipidemia: Qualifiers: Hyperlipidemia type: unspecified Qualified Code(s): E78.5 - Hyperlipidemia, unspecified Code(s): E78.5 - Hyperlipidemia, unspecified Status: Acute (10) Hypertension: Qualifiers: Hypertension type: unspecified Qualified Code(s): I10 - Essential (primary) hypertension Code(s): I10 - Essential (primary) hypertension Status: Acute (11) Hyponatremia: Code(s): E87.1 - Hypo-osmolality and hyponatremia Status: Acute (12) Hypokalemia: Code(s): E87.6 - Hypokalemia Status: Acute (13) Abnormal urinalysis: Code(s): R82.90 - Unspecified abnormal findings in urine Status: Acute Additional Plan Status post cholecystectomy: Today is postop day 0 Continue IV Zosyn and if okay with surgery might need to be sent on p.o. antibiotics Diet will be advanced and further recommendations will be awaited from general surgery perspective If continues to stay stable can be discharged in a.m.; will need agreement from General surgery Leukocytosis: Was noted to be a pending this morning Will re-evaluate in a.m.; possibly expecting improvement due to source control Urinalysis: Not amounting to infection as patient does not have any symptoms will not treat Subjective Date/time seen: 03/04/21 18:37 65-year-old female with past medical history significant for hypertension, hyperlipidemia, type 2 diabetes mellitus who presented with upper abdominal pain and is being managed as a case of acute cholecystitis. Initial CT scan performed revealed some concerns regarding ductal dilation of bile duct which was followed up with an MRCP which did not reveal any such findings. Patient is currently on IV Zosyn and is being followed by GI and General surgery. Today is status post laparoscopic cholecystectomy. Continue IV Zosyn for now while awaiting further recommendations by surgery. Review of Systems Review of Systems: A 10 point review of system was conducted and was otherwise negative Exam Narrative: GENERAL: The patient is well developed, not in acute distress HEENT: Nonicteric sclerae, PERRLA, EOMI. Oropharynx clear. Moist mucous membranes. Conjunctivae appear well perfused. CHEST: Chest wall is nontender. HEART: Regular rate and rhythm without murmur, rubs, or gallops LUNGS: Clear to auscultation bilaterally. no respiratory distress ABDOMEN: Soft, distended, tender epigastrium and right upper quadrant area no organomegaly no rigidity SKIN: No rash, no excessive bruising, petechiae, or purpura. NEUROLOGIC: Cranial nerves II-XII intact, alert and oriented x 3, no gross motor deficits EXTREMITIES: no edema, cyanosis or clubbing Objective Data Vital Signs Vital Signs: Vital Signs - 24 hr 03/03/21 20:00 03/03/21 22:00 03/04/21 06:00
[2021-03-04] MEDS: HYDROcodone/acetaminophen (*CRX) 10-325 MG TABLET 1 TAB PO (20:21)
[2021-03-05 05:49] VITALS: BP 133/59; PULSE 73; RESP 18; TEMP 36.4; O2SAT 97
[2021-03-05] MEDS: HYDROcodone/acetaminophen (*CRX) 5-325 MG TABLET 1 TAB PO (05:52)
[2021-03-05 07:39] LABS: Basophils Percent Auto 0.1 % (0.2-1.2); Hematocrit 33.8 % (37.0-47.0); Hemoglobin 11.1 g/dL (12.0-15.0); Immature Granulocyte Absolute 0.08 K/mm3 (0.00-0.031); Immature Granulocyte Percent A 0.6 % (0-0.5); Lymphocytes Absolute Auto 1.07 K/mm3 (0.9-3.2); Lymphocytes Percent Auto 8.2 % (18.3-44.2); Mean Corpuscular HGB Conc 32.8 g/dl (32-36); Mean Corpuscular Hemoglobin 29.4 pg (26-34); Mean Corpuscular Volume 89.7 fl (80-100); Mean Platelet Volume 9.8 fl (7.4-10.4); Monocytes Absolute Auto 0.8 K/mm3 (0.1-0.6); Monocytes Percent Auto 5.7 % (2.6-8.5); Neutrophils Absolute Auto 11.2 K/mm3 (1.3-6.7); Neutrophils Percent Auto 85.4 % (45.5-73.1); Platelet Count Result 224 k/mm3 (150-375); Red Blood Count 3.77 M/mm3 (4.2-5.4); Red Cell Distribution Width 13.2 % (11.5-14.5); White Blood Count 13.1 K/mm3 (4.5-10.0)
[2021-03-05 07:55] LABS: Glucose Point of Care 132 mg/dl (65-105)
[2021-03-05 08:13] LABS: Alanine Aminotransferase 85 U/L (4-35); Albumin Level 3.2 g/dL (3.5-5.1); Alkaline Phosphatase 68 U/L (38-126); Anion Gap 9 mmol/L (8-16); Aspartate Amino Transferase 71 U/L (14-36); Bilirubin,Total 0.4 mg/dL (0.2-1.3); Blood Urea Nitrogen 14 mg/dL (7-17); Calcium 8.3 mg/dL (8.4-10.2); Carbon Dioxide 29 mmol/L (22-30); Chloride 97 mmol/L (98-107); Estimated CRCL calculation 48 ml/min; Estimated Glomerular Filt Rate 45; Glucose 138 mg/dL (65-110); Potassium 3.7 mmol/L (3.4-5.0); Sodium 135 mmol/L (137-145)
[2021-03-05] MEDS: ENOXAPARIN 40 MG/0.4 ML SYRINGE SUB-Q (08:25)
[2021-03-05] MEDS: PANTOPRAZOLE SODIUM IV 40 MG VIAL IV PUSH (08:25)
[2021-03-05 12:28] LABS: Glucose Point of Care 219 mg/dl (65-105)
--- NOTE | 2021-03-05 12:34 | WPDGIPROGNO ---
Progress Note: A&P Assessment and Plan (1) Cholecystitis: Code(s): K81.9 - Cholecystitis, unspecified Status: Acute Assessment and Plan: s/p lap jesus with BRIDGER drain, IOC no stones in bile duct advancing diet per surgery team no new events (2) Dilated bile duct: Code(s): K83.8 - Other specified diseases of biliary tract Status: Acute Assessment and Plan: ICO without stones or filling defects with good flow (3) Upper abdominal pain: Code(s): R10.10 - Upper abdominal pain, unspecified Status: Acute (4) Transaminitis: Code(s): R74.01 - Elevation of levels of liver transaminase levels Status: Acute Assessment and Plan: mildly elevated and expected after surgery (5) Diabetes mellitus: Qualifiers: Diabetes mellitus type: type 2 Diabetes mellitus terminal system operator insulin use: unspecified terminal system operator insulin use status Diabetes mellitus complication status: with other specified complication Qualified Code(s): E11.69 - Type 2 diabetes mellitus with other specified complication Code(s): E11.9 - Type 2 diabetes mellitus without complications Status: Acute Subjective Date/time seen: 03/05/21 12:34 Interval history: doing well after surgery, walking around. Review of Systems Review of Systems: All systems reviewed & are unremarkable except as noted in HPI and below Exam Const: General: comfortable and no acute distress HENMT: General nose exam: Normal nares present Eyes: Pupils: Equal, round and reactive pupils present Neck: Neck: supple Resp: Auscultation: clear to auscultation bilaterally Cardio: Rate: regular rate GI: GI Palp: Yes Soft to palpation and Yes Tenderness to palpation present (GI) (mild pain from surgery, BRIDGER drain) Auscultation: normal bowel sounds Skin: General skin exam: normal color Neuro: Speech: normal speech Motor exam (neuro): Normal motor muscle tone present throughout Extrem: General: normal to inspection Psych: Mental Status: mental status grossly normal Objective Data Vital Signs Vital Signs: Vital Signs - 24 hr 03/04/21 14:49 03/04/21 15:05 03/04/21 15:20 Temperature 97.7 F Pulse Rate 86 86 82 Respiratory Rate 12 14 14 Blood Pressure 105/56 L 113/60 133/65 Pulse Oximetry 97 98 100 03/04/21 15:35 03/04/21 15:50 03/04/21 16:00 Temperature 98.2 F Pulse Rate 83 77 76 Respiratory Rate 15 14 12 Blood Pressure 150/68 H 145/67 H 150/69 H Pulse Oximetry 92 98 97 03/04/21 16:03 03/04/21 22:00 03/05/21 05:49 Temperature 98.8 F 97.5 F L Pulse Rate 77 87 73 Respiratory Rate 14 18 18 Blood Pressure 148/66 H 111/53 L 133/59 L Pulse Oximetry 97 90 97 Intake/Output Intake/Output: Intake & Output 03/02/21 03/03/21 03/04/21 03/05/21 23:59 23:59 23:59 23:59 Intake Total 8542 078 7088 970 Output Total 10 30 Balance 3475 268 7109 940 Meds/Results Medications: Active Medications Generic Name Dose Route Start Last Admin Trade Name Freq PRN Reason Stop Dose Admin Acetaminophen 500 mg 03/04/21 16:10 Acetaminophen 500 Mg Tablet PO Q6H PRN Mild Pain (1-3) or Fever Hydrocodone Bitart/Acetaminophen 1 tab 03/04/21 16:10 03/05/21 05:52 Hydrocodone/Acetaminophen (*Crx) 5-325 Mg Tablet PO 1 tab Q4H PRN Administration Pain Rated 4-6 Hydrocodone Bitart/Acetaminophen 1 tab 03/04/21 16:10 03/04/21 20:21 Hydrocodone/Acetaminophen (*Crx) 10-325 Mg Tablet PO 1 tab Q4H PRN Administration Pain Rated 7-10 Enoxaparin Sodium 40 mg 03/05/21 09:00 03/05/21 08:25 Enoxaparin 40 Mg/0.4 Ml Syringe SUB-Q 40 mg DAILY MOO Administration Piperacillin/Tazobactam/Dextrose 3.375 gm in 50 mls @ 100 mls/hr 03/03/21 00:00 03/05/21 06:26 Zosyn 3.375 Gm/D5w 50ml Pm IVPB Infused Q6H MOO Infusion Morphine Sulfate 2 mg 03/04/21 16:10 Morphine Sulfate (*Crx) 2 Mg/Ml Inj IV PUSH Q2H PRN Pain Rated 4-6 Morphine Sulfate
[2021-03-05] MEDS: HYDROcodone/acetaminophen (*CRX) 10-325 MG TABLET 1 TAB PO ×2 (15:41→21:37)
[2021-03-05 16:00] VITALS: BP 155/75; PULSE 94; RESP 14; TEMP 36.8; O2SAT 93
[2021-03-05 17:03] LABS: Glucose Point of Care 105 mg/dl (65-105)
--- NOTE | 2021-03-05 18:45 | PM.IMPN ---
Progress Note: A&P Assessment and Plan (1) Transaminitis: Code(s): R74.01 - Elevation of levels of liver transaminase levels Status: Acute (2) Leukocytosis: Qualifiers: Leukocytosis type: unspecified Qualified Code(s): D72.829 - Elevated white blood cell count, unspecified Code(s): D72.829 - Elevated white blood cell count, unspecified Status: Acute (3) Upper abdominal pain: Code(s): R10.10 - Upper abdominal pain, unspecified Status: Acute (4) Dilated bile duct: Code(s): K83.8 - Other specified diseases of biliary tract Status: Acute (5) Cholecystitis: Code(s): K81.9 - Cholecystitis, unspecified Status: Acute (6) Acute cholecystitis due to biliary calculus: Code(s): K80.00 - Calculus of gallbladder with acute cholecystitis without obstruction Status: Acute (7) Diabetes mellitus type 2 in nonobese: Code(s): E11.9 - Type 2 diabetes mellitus without complications Status: Acute (8) Morbid obesity: Code(s): E66.01 - Morbid (severe) obesity due to excess calories Status: Acute (9) Hyperlipidemia: Qualifiers: Hyperlipidemia type: unspecified Qualified Code(s): E78.5 - Hyperlipidemia, unspecified Code(s): E78.5 - Hyperlipidemia, unspecified Status: Acute (10) Hypertension: Qualifiers: Hypertension type: unspecified Qualified Code(s): I10 - Essential (primary) hypertension Code(s): I10 - Essential (primary) hypertension Status: Acute (11) Hyponatremia: Code(s): E87.1 - Hypo-osmolality and hyponatremia Status: Acute (12) Hypokalemia: Code(s): E87.6 - Hypokalemia Status: Acute (13) Abnormal urinalysis: Code(s): R82.90 - Unspecified abnormal findings in urine Status: Acute Additional Plan Status post cholecystectomy: Today is postop day 1 Continue IV Zosyn and if okay with surgery might need to be sent on p.o. antibiotics Diet will be advanced and further recommendations will be awaited from general surgery perspective If continues to stay stable can be discharged in a.m.; will need agreement from General surgery Leukocytosis: Was noted to be a pending this morning Will re-evaluate in a.m.; possibly expecting improvement due to source control Urinalysis: Not amounting to infection as patient does not have any symptoms will not treat Subjective Date/time seen: 03/05/21 18:45 Interval history: Limited interview, as patient does not speak [place] is a 1st language, however does not convey being in extreme pain, and symptoms overall improving. Per nursing staff no acute overnight events Review of Systems Review of Systems: All systems reviewed & are unremarkable except as noted in HPI and below Constitutional: Constitutional: Reports fatigue and Reports weakness Neurologic: Reports weakness Endocrine: Endocrine: Reports fatigue Exam Narrative: GENERAL: The patient is well developed, not in acute distress HEENT: Nonicteric sclerae, PERRLA, EOMI. Oropharynx clear. Moist mucous membranes. Conjunctivae appear well perfused. CHEST: Chest wall is nontender. HEART: Regular rate and rhythm without murmur, rubs, or gallops LUNGS: Clear to auscultation bilaterally. no respiratory distress ABDOMEN: Soft, distended, tender epigastrium and right upper quadrant area no organomegaly no rigidity SKIN: No rash, no excessive bruising, petechiae, or purpura. NEUROLOGIC: Cranial nerves II-XII intact, alert and oriented x 3, no gross motor deficits EXTREMITIES: no edema, cyanosis or clubbing Extrem: General: normal exam except as noted and no edema Objective Data Vital Signs Vital Signs: Vital Signs - 24 hr 03/04/21 22:00 03/05/21 05:49 03/05/21 16:00 Temperature 98.8 F 97.5 F L 98.2 F Pulse Rate 87 73 94 Respiratory Rate 18 18 14 Blood Pressure 111/53 L 133/59 L 155/75 H Pulse Oximetry 90 97 93 Intake/Out
[2021-03-05 21:42] LABS: Glucose Point of Care 108 mg/dl (65-105)
[2021-03-05 21:46] VITALS: BP 172/74; PULSE 73; RESP 18; TEMP 36.1; O2SAT 98
--- NOTE | 2021-03-05 21:54 | PM.PNGS ---
Progress Note: A&P Assessment and Plan (1) Acute cholecystitis due to biliary calculus: Onset Date: ~02/2021 Code(s): K80.00 - Calculus of gallbladder with acute cholecystitis without obstruction Status: Acute Assessment and Plan: Patient seems to be doing well postop day 1. Status post difficult laparoscopic cholecystectomy. Minimal serosanguineous drainage in the BRIDGER drain. If still non bilious may be able to remove tomorrow. Will continue IV antibiotics repeat labs in the morning and if patient able to advance diet consider possible discharge tomorrow. (2) Diabetes mellitus: Onset Date: Unknown Qualifiers: Diabetes mellitus type: type 2 Diabetes mellitus termite exterminator insulin use: unspecified termite exterminator insulin use status Diabetes mellitus complication status: with other specified complication Qualified Code(s): E11.69 - Type 2 diabetes mellitus with other specified complication Code(s): E11.9 - Type 2 diabetes mellitus without complications Status: Acute Assessment and Plan: As per hospitalist. (3) Upper abdominal pain: Onset Date: Unknown Code(s): R10.10 - Upper abdominal pain, unspecified Status: Acute Assessment and Plan: Related to # 1. Above. Now improving (4) Hypertension: Qualifiers: Hypertension type: unspecified Qualified Code(s): I10 - Essential (primary) hypertension Code(s): I10 - Essential (primary) hypertension Status: Acute Subjective Subjective Date/Time Seen: 03/05/21 09:54 (late entry) The patient seen this morning and son helped interpret. (I was told that her language isn't represented on the iPad interpreting machine). patient relates that she is tolerating clear liquids but find some things to sugar E. she still has some a abdominal pain across the upper abdomen otherwise doing okay. son seems indicate patient tells him that she feels significantly better than before surgery. Post Op day: 1 ( feels somewhat better) Patient reports: tolerating liquids well and no bowel movement Review of Systems Review of Systems: ROS unobtainable: Yes other ( Limited by language but as designated below.) Cardiovascular: Cardiovascular: Denies palpitations Respiratory: Respiratory: Denies chest congestion and Reports pain with cough Gastrointestinal: Gastrointestinal: Reports as per HPI, Denies loose stools, Denies nausea and Denies vomiting Exam Const: General: cooperative, no acute distress, alert and awake Orientation/consciousness: patient oriented x3 HENMT: Mouth: Yes moist mucous membranes Neck: Neck: normal visual inspection Chest: Chest palpation & inspection: normal inspection of the chest Resp: Effort & Inspection: normal respiratory effort Auscultation: clear to auscultation bilaterally Cardio: Jugular venous distension: no JVD Rate: regular rate Rhythm: regular rhythm GI: Inspection: incision ( clean and dry with surgical glue in place) and obesity Auscultation: normal bowel sounds Rectal Exam: deferred Other: BRIDGER drain exiting 1 of the lateral port sites. Dressing dry. Serosanguineous fluid within the BRIDGER. 10 cc out yesterday until midnight. Today not yet recorded. Neuro: General: patient oriented x3 and moves all extremities Speech: normal speech Extrem: General: normal exam except as noted Psych: Mental Status: mental status grossly normal Speech and movement: Normal speech and movement present Affect: normal affect Thought content: Yes Normal thought content present Objective Data Vital Signs Vital Signs: Vital Signs - 24 hr 03/04/21 22:00 03/05/21 05:49 03/05/21 16:00 Temperature 37.1 C 36.4 C L 36.8 C Pulse Rate 87 73 94 Respiratory Rate 18 18 14 Blood Pressure 111/53 L 133/59 L 155/75 H Pulse Oximetry 90 97 93 03/05/21 21:46 Temperature 36.1 C L Pulse Rate 73 Respiratory Rate 18 Blood Pressure 172/74 H Pulse Oximetry 98 I
[2021-03-06 06:00] VITALS: BP 153/73; PULSE 76; RESP 18; TEMP 36.6; O2SAT 98
[2021-03-06 07:17] LABS: Basophils Percent Auto 0.2 % (0.2-1.2); Eosinophils Percent Auto 0.5 % (0-4.4); Hematocrit 35.2 % (37.0-47.0); Hemoglobin 11.1 g/dL (12.0-15.0); Immature Granulocyte Absolute 0.02 K/mm3 (0.00-0.031); Immature Granulocyte Percent A 0.2 % (0-0.5); Lymphocytes Absolute Auto 2.16 K/mm3 (0.9-3.2); Lymphocytes Percent Auto 25.5 % (18.3-44.2); Mean Corpuscular HGB Conc 31.5 g/dl (32-36); Mean Corpuscular Hemoglobin 29.1 pg (26-34); Mean Corpuscular Volume 92.4 fl (80-100); Mean Platelet Volume 9.3 fl (7.4-10.4); Monocytes Absolute Auto 0.6 K/mm3 (0.1-0.6); Monocytes Percent Auto 7.1 % (2.6-8.5); Neutrophils Absolute Auto 5.6 K/mm3 (1.3-6.7); Neutrophils Percent Auto 66.5 % (45.5-73.1); Platelet Count Result 260 k/mm3 (150-375); Red Blood Count 3.81 M/mm3 (4.2-5.4); Red Cell Distribution Width 13.2 % (11.5-14.5); White Blood Count 8.5 K/mm3 (4.5-10.0)
[2021-03-06 07:36] LABS: Alanine Aminotransferase 71 U/L (4-35); Albumin Level 3.3 g/dL (3.5-5.1); Alkaline Phosphatase 68 U/L (38-126); Anion Gap 6 mmol/L (8-16); Aspartate Amino Transferase 49 U/L (14-36); Bilirubin,Total 0.4 mg/dL (0.2-1.3); Blood Urea Nitrogen 14 mg/dL (7-17); Calcium 8.7 mg/dL (8.4-10.2); Carbon Dioxide 28 mmol/L (22-30); Chloride 104 mmol/L (98-107); Estimated CRCL calculation 63 ml/min; Estimated Glomerular Filt Rate > 60; Glucose 97 mg/dL (65-110); Phosphorus 2.6 mg/dL (2.5-4.5); Potassium 3.2 mmol/L (3.4-5.0); Sodium 138 mmol/L (137-145)
[2021-03-06 08:00] LABS: Magnesium 1.4 mg/dL (1.6-2.3)
[2021-03-06] MEDS: ENOXAPARIN 40 MG/0.4 ML SYRINGE SUB-Q (09:07)
[2021-03-06] MEDS: PANTOPRAZOLE SODIUM IV 40 MG VIAL IV PUSH (09:08)
[2021-03-06 09:57] LABS: Glucose Point of Care 97 mg/dl (65-105)
--- NOTE | 2021-03-06 11:45 | PM.IMPN ---
Progress Note: A&P Assessment and Plan (1) Transaminitis: Code(s): R74.01 - Elevation of levels of liver transaminase levels Status: Acute (2) Leukocytosis: Qualifiers: Leukocytosis type: unspecified Qualified Code(s): D72.829 - Elevated white blood cell count, unspecified Code(s): D72.829 - Elevated white blood cell count, unspecified Status: Acute (3) Upper abdominal pain: Onset Date: Unknown Code(s): R10.10 - Upper abdominal pain, unspecified Status: Acute (4) Dilated bile duct: Code(s): K83.8 - Other specified diseases of biliary tract Status: Acute (5) Cholecystitis: Code(s): K81.9 - Cholecystitis, unspecified Status: Acute (6) Acute cholecystitis due to biliary calculus: Onset Date: ~02/2021 Code(s): K80.00 - Calculus of gallbladder with acute cholecystitis without obstruction Status: Acute (7) Diabetes mellitus type 2 in nonobese: Code(s): E11.9 - Type 2 diabetes mellitus without complications Status: Acute (8) Morbid obesity: Code(s): E66.01 - Morbid (severe) obesity due to excess calories Status: Acute (9) Hyperlipidemia: Qualifiers: Hyperlipidemia type: unspecified Qualified Code(s): E78.5 - Hyperlipidemia, unspecified Code(s): E78.5 - Hyperlipidemia, unspecified Status: Acute (10) Hypertension: Qualifiers: Hypertension type: unspecified Qualified Code(s): I10 - Essential (primary) hypertension Code(s): I10 - Essential (primary) hypertension Status: Acute (11) Hyponatremia: Code(s): E87.1 - Hypo-osmolality and hyponatremia Status: Acute (12) Hypokalemia: Code(s): E87.6 - Hypokalemia Status: Acute (13) Abnormal urinalysis: Code(s): R82.90 - Unspecified abnormal findings in urine Status: Acute Additional Plan Status post cholecystectomy: Today is postop day 2 Change IV Zosyn to p.o. ciprofloxacin today, to complete a 7 day course Diet will be advanced as tolerated Currently still in pain, and her and son prefer to keep her another day; if this changes later on today, can consider discharge Leukocytosis, Resolved Was noted to be a pending this morning Will re-evaluate in a.m.; possibly expecting improvement due to source control Subjective Date/time seen: 03/06/21 11:45 No acute medical complaints, resting comfortably in bed Review of Systems Review of Systems: Limited given language barrier, but patient denies acute pain or respiratory problems Exam Narrative: GENERAL: The patient is well developed, not in acute distress HEENT: Nonicteric sclerae, PERRLA, EOMI. Oropharynx clear. Moist mucous membranes. Conjunctivae appear well perfused. CHEST: Chest wall is nontender. HEART: Regular rate and rhythm without murmur, rubs, or gallops LUNGS: Clear to auscultation bilaterally. no respiratory distress ABDOMEN: Soft, distended, tender epigastrium and right upper quadrant area no organomegaly no rigidity SKIN: No rash, no excessive bruising, petechiae, or purpura. NEUROLOGIC: Cranial nerves II-XII intact, alert and oriented x 3, no gross motor deficits EXTREMITIES: no edema, cyanosis or clubbing Extrem: General: normal exam except as noted and no edema Objective Data Vital Signs Vital Signs: Vital Signs - 24 hr 03/05/21 16:00 03/05/21 21:46 03/06/21 06:00 Temperature 98.2 F 97.0 F L 97.8 F Pulse Rate 94 73 76 Respiratory Rate 14 18 18 Blood Pressure 155/75 H 172/74 H 153/73 H Pulse Oximetry 93 98 98 Intake/Output Intake/Output: Intake & Output 03/03/21 03/04/21 03/05/21 03/06/21 23:59 23:59 23:59 23:59 Intake Total 150 1250 2430 970 Output Total 10 55 Balance 150 1240 2375 970 Meds/Results Medications: Active Medications Generic Name Dose Route Start Last Admin Trade Name Freq PRN Reason Stop Dose Admin Acetaminophen 500 mg 03/04/21 16:10 Stone
[2021-03-06 12:13] LABS: Glucose Point of Care 150 mg/dl (65-105)
[2021-03-06 14:25] VITALS: BP 147/51; PULSE 74; RESP 18; TEMP 36.3; O2SAT 94
[2021-03-06 16:47] LABS: Glucose Point of Care 147 mg/dl (65-105)
[2021-03-06] MEDS: AMOXICILLIN/CLAVULANATE K 875-125 MG TAB 1 TABLET PO (20:41)
[2021-03-06 20:50] VITALS: BP 172/73; PULSE 75; RESP 16; TEMP 36.3; O2SAT 97
--- NOTE | 2021-03-06 21:00 | PM.PNGS ---
Progress Note: A&P Assessment and Plan (1) Acute cholecystitis due to biliary calculus: Onset Date: ~02/2021 Code(s): K80.00 - Calculus of gallbladder with acute cholecystitis without obstruction Status: Acute Assessment and Plan: Patient seems to be doing well postop day 2. Status post difficult laparoscopic cholecystectomy. 55 cc serosanguineous drainage in the BRIDGER drain for last 24 hr. If still non bilious may be able to remove tomorrow. Will stop IV antibiotics and start Augmentin, repeat labs in the morning and if patient able to advance diet consider possible discharge tomorrow. (2) Diabetes mellitus: Onset Date: Unknown Qualifiers: Diabetes mellitus complication status: with other specified complication Diabetes mellitus marine oil terminal superintendent insulin use: unspecified marine oil terminal superintendent insulin use status Diabetes mellitus type: type 2 Qualified Code(s): E11.69 - Type 2 diabetes mellitus with other specified complication Code(s): E11.9 - Type 2 diabetes mellitus without complications Status: Acute Assessment and Plan: As per hospitalist. (3) Upper abdominal pain: Onset Date: Unknown Code(s): R10.10 - Upper abdominal pain, unspecified Status: Acute Assessment and Plan: Related to # 1. Above. Now improving (4) Hypertension: Qualifiers: Hypertension type: unspecified Qualified Code(s): I10 - Essential (primary) hypertension Code(s): I10 - Essential (primary) hypertension Status: Acute Subjective Subjective Date/Time Seen: 03/06/21 21:00 Post Op day: 2 ( gradually improving but slow on advancing diet) Patient reports: no new complaints Interval history: I saw patient walking in the [place]. Talked with patient with the help of Peter her son by phone. Not many complaints just going slow with return to food. Review of Systems Review of Systems: All systems reviewed & are unremarkable except as noted in HPI and below ROS unobtainable: Yes other ( Limited by language but as designated below.) Constitutional: Constitutional: Reports as per HPI, Reports chills, Denies fatigue and Denies fever(s) (felt feverish but did not take temp) Eyes: Eyes: Reports no additional eye complaints and Denies change in vision Comments: No sc No sclleral ictereusr ENT: Reports system reviewed and no additional complaints, except as documented Cardiovascular: Cardiovascular: Reports no additional cardiovascular complaints, Denies chest pain, Denies leg edema and Denies palpitations Respiratory: Respiratory: Reports no additional respiratory complaints, Denies chest congestion, Denies cough and Reports pain with cough Gastrointestinal: Gastrointestinal: Reports as per HPI, Reports no additional gastrointestinal complaints, Reports abdominal pain (upper), Denies bloating, Denies change in bowel habits, Denies change in stool character (no [place] colored/light stools), Denies constipation, Denies diarrhea, Denies loose stools, Denies nausea and Denies vomiting Genitourinary: Genitourinary: Denies hematuria, Denies dysuria and Reports other (no dark urine) Musculoskeletal: Musculoskeletal: Denies deformity Integumentary/Breasts: Skin/Breast: Denies wounds and Denies jaundice Neurologic: Reports system reviewed and no additional complaints, except as documented and Denies focal weakness Psychiatric: Psychiatric: Reports depression (has lost 2 sons, most recently lost one of her sons 1 year ago) and Denies suicidal ideation Endocrine: Endocrine: Denies fatigue and Denies palpitations Exam Const: General: cooperative, no acute distress, alert, awake and uncomfortable Nutritional Appearance: obese centrally obese Orientation/consciousness: patient oriented x3 HENMT: Head: normocephalic and atraumatic Ears: hearing grossly normal bilaterally and external ears normal Mouth: Yes moist mucous membranes Eyes: General: appearance normal, both eyes
[2021-03-07 06:00] VITALS: BP 131/61; PULSE 78; RESP 18; TEMP 36.1; O2SAT 97
[2021-03-07 07:37] LABS: Basophils Percent Auto 0.2 % (0.2-1.2); Eosinophils Absolute Auto 0.1 K/mm3 (0-0.3); Eosinophils Percent Auto 1.4 % (0-4.4); Hematocrit 36.9 % (37.0-47.0); Hemoglobin 11.6 g/dL (12.0-15.0); Immature Granulocyte Absolute 0.01 K/mm3 (0.00-0.031); Immature Granulocyte Percent A 0.2 % (0-0.5); Lymphocytes Absolute Auto 1.58 K/mm3 (0.9-3.2); Lymphocytes Percent Auto 27.7 % (18.3-44.2); Mean Corpuscular HGB Conc 31.4 g/dl (32-36); Mean Corpuscular Hemoglobin 28.6 pg (26-34); Mean Corpuscular Volume 91.1 fl (80-100); Mean Platelet Volume 9.4 fl (7.4-10.4); Monocytes Absolute Auto 0.4 K/mm3 (0.1-0.6); Monocytes Percent Auto 7.7 % (2.6-8.5); Neutrophils Absolute Auto 3.6 K/mm3 (1.3-6.7); Neutrophils Percent Auto 62.8 % (45.5-73.1); Platelet Count Result 279 k/mm3 (150-375); Red Blood Count 4.05 M/mm3 (4.2-5.4); Red Cell Distribution Width 13.1 % (11.5-14.5); White Blood Count 5.7 K/mm3 (4.5-10.0)
[2021-03-07 08:45] LABS: Glucose Point of Care 115 mg/dl (65-105)
[2021-03-07 09:00] LABS: Alanine Aminotransferase 58 U/L (4-35); Albumin Level 3.3 g/dL (3.5-5.1); Alkaline Phosphatase 72 U/L (38-126); Anion Gap 4 mmol/L (8-16); Aspartate Amino Transferase 33 U/L (14-36); Bilirubin,Total 0.4 mg/dL (0.2-1.3); Blood Urea Nitrogen 12 mg/dL (7-17); Calcium 9.1 mg/dL (8.4-10.2); Carbon Dioxide 32 mmol/L (22-30); Chloride 102 mmol/L (98-107); Estimated CRCL calculation 70 ml/min; Estimated Glomerular Filt Rate > 60; Glucose 142 mg/dL (65-110); Magnesium 1.1 mg/dL (1.6-2.3); Phosphorus 2.5 mg/dL (2.5-4.5); Potassium 2.8 mmol/L (3.4-5.0); Sodium 138 mmol/L (137-145)
[2021-03-07] MEDS: ENOXAPARIN 40 MG/0.4 ML SYRINGE SUB-Q (09:48)
[2021-03-07] MEDS: PANTOPRAZOLE 40 MG TABLET PO (09:48)
[2021-03-07] MEDS: AMOXICILLIN/CLAVULANATE K 875-125 MG TAB 1 TABLET PO (09:49)
--- NOTE | 2021-03-07 11:06 | PM.PNGS ---
Progress Note: A&P Assessment and Plan (1) Acute cholecystitis due to biliary calculus: Onset Date: ~02/2021 Code(s): K80.00 - Calculus of gallbladder with acute cholecystitis without obstruction Status: Acute Assessment and Plan: doing well today. Okay to discharge from surgical perspective on Augmentin for another 5 days. Discharge instructions were discussed. I will see her in 2 weeks. BRIDGER drain will be removed before discharge. (2) Hypokalemia: Code(s): E87.6 - Hypokalemia Status: Acute Assessment and Plan: Give 40 mEq potassium now and sent home on 20 mEq potassium b.i.d. for a week. (3) Morbid obesity: Code(s): E66.01 - Morbid (severe) obesity due to excess calories Status: Chronic (4) Diabetes mellitus: Onset Date: Unknown Qualifiers: Diabetes mellitus type: type 2 Diabetes mellitus fdc insulin use: unspecified director of nursing insulin use status Diabetes mellitus complication status: with other specified complication Qualified Code(s): E11.69 - Type 2 diabetes mellitus with other specified complication Code(s): E11.9 - Type 2 diabetes mellitus without complications Status: Chronic Subjective Subjective Date/Time Seen: 03/07/21 11:06 Post Op day: 3 Patient reports: no new complaints, feels better, tolerating a regular diet and bowel movement Exam GI: Inspection: non-distended, incision ( healing well, BRIDGER output is serous) and obesity GI Palp: Yes Soft to palpation and Yes Tenderness to palpation present (GI) ( mild, appropriate tenderness) Objective Data Vital Signs Vital Signs: Vital Signs - 24 hr 03/06/21 14:25 03/06/21 20:50 03/07/21 06:00 Temperature 36.3 C L 36.3 C L 36.1 C L Pulse Rate 74 75 78 Respiratory Rate 18 16 18 Blood Pressure 147/51 H 172/73 H 131/61 Pulse Oximetry 94 97 97 Intake/Output Intake/Output: Intake & Output 03/04/21 03/05/21 03/06/21 03/07/21 23:59 23:59 23:59 23:59 Intake Total 1250 2430 1450 780 Output Total 10 55 30 Balance 1240 2375 1420 780 Meds/Results Medications: Active Medications Generic Name Dose Route Start Last Admin Trade Name Freq PRN Reason Stop Dose Admin Acetaminophen 500 mg 08/13/21 16:10 Acetaminophen 500 Mg Tablet PO Q6H PRN Mild Pain (1-3) or Fever Hydrocodone Bitart/Acetaminophen 1 tab 03/04/21 16:10 03/05/21 05:52 Hydrocodone/Acetaminophen (*Crx) 5-325 Mg Tablet PO 1 tab Q4H PRN Administration Pain Rated 4-6 Hydrocodone Bitart/Acetaminophen 1 tab 03/04/21 16:10 03/05/21 21:37 Hydrocodone/Acetaminophen (*Crx) 10-325 Mg Tablet PO 1 tab Q4H PRN Administration Pain Rated 7-10 Amoxicillin/Clavulanate Potassium 1 tablet 03/06/21 21:00 03/07/21 09:49 Amoxicillin/Clavulanate K 875-125 Mg Tab PO 1 tablet Q12HR MOO Administration Dextrose 12.5 gm 03/05/21 12:40 Dextrose 50% 25 Gm/50 Ml Syringe IV PUSH PRN PRN Hypoglycemia Protocol Enoxaparin Sodium 40 mg 03/05/21 09:00 03/07/21 09:48 Enoxaparin 40 Mg/0.4 Ml Syringe SUB-Q 40 mg DAILY MOO Administration Glucagon 1 mg 03/05/21 12:40 Glucagon For Inj 1 Mg Vial IM PRN PRN Hypoglycemia Protocol Glucose 15 gm 03/05/21 12:40 Glucose Oral Gel 15 Gm Of Glucse In 37.5 Gm Tube PO PRN PRN Hypoglycemia Protocol Dextrose 1,000 mls @ 100 mls/hr 03/05/21 12:40 Dextrose 5% 1,000 Ml IVPB PRN PRN Hypoglycemia Protocol Insulin Aspart 2 - 5 units 03/05/21 17:00 03/07/21 09:49 Insulin Aspart (*Bkc) 100 Units/Ml SUB-Q Not Given TIDWM MOO Protocol Morphine Sulfate 2 mg 03/04/21 16:10 Morphine Sulfate (*Crx) 2 Mg/Ml Inj IV PUSH Q2H PRN Pain Rated 4-6 Morphine Sulfate 4 mg 03/04/21 16:10 Morphine Sulfate (*Crx) 4 Mg/Ml Inj IV PUSH Q2H PRN Pain Rated 7-10 Naloxone HCl 0.1 mg 03/04/21 16:10 Naloxone Hcl 0.4 Mg/Ml Via
[2021-03-07] MEDS: POTASSIUM CHLORIDE 20 MEQ TABLET 40 MEQ PO ×2 (12:06→14:38)
[2021-03-07 12:11] LABS: Glucose Point of Care 123 mg/dl (65-105)
[2021-03-07 14:00] VITALS: BP 191/90; PULSE 89; RESP 20; TEMP 36.3; O2SAT 95
--- NOTE | 2021-03-08 09:16 | PM.DS ---
DS: Admitting Diagnosis Admitting Diagnosis Upper abdominal pain DS: Discharge Diagnosis Discharge Diagnosis (1) Acute cholecystitis due to biliary calculus: Onset Date: ~02/2021 Code(s): K80.00 - Calculus of gallbladder with acute cholecystitis without obstruction Status: Acute (2) Cholecystitis: Code(s): K81.9 - Cholecystitis, unspecified Status: Acute DS: Summary Hospital Course Reason for hospitalization: acute cholecystitis Hospital Course: patient is a 65-year-old lady with history of hypertension dyslipidemia and diabetes presenting with 1 month of upper abdominal pain. Associated factors include vomiting, however no fever chills diarrhea. Apparently she had been told several years ago she had gallstones. CT scan showing cholelithiasis, acute cholecystitis with dilation of common bile duct and central intrahepatic biliary ducts, however MRCP did not reveal choledocholithiasis. Started on IV Zosyn, and scheduled for surgery. Underwent laparoscopic cholecystectomy 03/04 As well as intraoperative cholangiogram. Findings included dense adhesions in the Colles cysto hepatic triangle and very dilated common bile duct, however no stones. Patient tolerated procedure well, and BRIDGER drain was left in right upper quadrant. BRIDGER drain removed on 03/07. IV Zosyn converted to p.o. Augmentin. Discharged with close follow-up with primary care and surgeon. Given potassium supplementation on discharge for hypokalemia, Status at Discharge Functional status at discharge: uses cane/walker Overall status at discharge: patient is progressing back to baseline Time Spent with Patient Time attestation: Total time spent providing and/or coordinating discharge services: Time spent: Less than 30 minutes Exam Const: General: no acute distress Neck: Neck: no JVD Resp: Effort & Inspection: normal respiratory effort Auscultation: clear to auscultation bilaterally Cardio: Rate: regular rate Rhythm: regular rhythm GI: Inspection: non-distended GI Palp: Yes Soft to palpation, No Firmness to palpation present (GI) and No Tenderness to palpation present (GI) Skin: General skin exam: normal color and no rashes or lesions noted DS: Data Data Completed and Pending Pending studies at discharge: Pending at discharge 03/04/21 13:45 Surgical [PTH] Routine Labs on day of discharge: Labs from last 24 hours 03/07/21 11:59 POC Capillary Glucose 123 H Preliminary micro results at discharge 03/04/21 09:33 Blood Culture - Preliminary Blood 03/04/21 09:37 Blood Culture - Preliminary Blood Discharge Plan Discharge Attending physician on discharge: Emanuel Lucas Consulting providers: Franck Doss ; Edu Francis Discharging Clinician: Emanuel Lucas Patient Disposition: Home, Self-Care Activity: may shower and no straining Diet: as tolerated and diabetic Wound Care Instructions: keep dressing dry, remove dressing to shower and change dressing daily Discharge Instructions: Ambulate 3-4 x per day and as tolerated. No lifting over 15-20lbs. May bathe or shower. Stairs are OK. May drive a car in 3 days. Remove dressing to BRIDGER drain site before showering. Replace after. May discontinue dressing changes to BRIDGER drain site on . Leave open starting . Patient Instructions: Antibiotic Form, Low Fat Diet (DC), Laparoscopic Cholecystectomy (DC) Stand Alone Forms: General Discharge Information Follow-up/Referrals: Edu Francis MD [Physician] - 2 Weeks (Call Dr. newberry office to make appointment) Zulema,MD Sandeep [Primary Care Provider] - 2 Weeks Discharge Medications: New hydrocodone-acetaminophen 5-325 mg tablet 1 - 2 tablet PO Q6H PRN (Reason: pain) Qty: 7 RF: 0 ibuprofen 600 mg tablet 600 mg PO Q6H PRN (Reason: pain) Qty: 14 RF: 0 amoxicillin-pot clavulanate [Augmentin] 875-125 mg tablet 1 tablet
== END 2021-03-07 16:00 | disposition home or self-care (01) | DRG 263 ==
LOC: ANHED 20:31 → ANH3MEDSUR 21:41
PROVIDERS: Emergency Medicine; Internal Medicine; Surgery; Admitting Provider Internal Medicine; Emergency Provider Family Medicine; PCP Internal Medicine; Visit Provider Internal Medicine
PROC: 0FT44ZZ Resection of Gallbladder, Percutaneous Endoscopic Approach (ICD-10-PCS; CPT 47562; principal; 2021-03-04 12:00)
DX: K80.00 Calculus of gallbladder with acute cholecystitis without obstruction (principal); I10 Essential (primary) hypertension; E78.5 Hyperlipidemia, unspecified; E11.9 Type 2 diabetes mellitus without complications; E66.01 Morbid (severe) obesity due to excess calories; Z68.42 Body mass index [BMI] 45.0-49.9, adult; E87.6 Hypokalemia; E87.1 Hypo-osmolality and hyponatremia
CPT/HCPCS: 36415; 74177; 74183; 74300; 76376; 80053; 81001; 82948; 83690; 83735; 84100; 85025; 86850; 86900; 86901; 87040; 88304; 93005; 96361; 96374; 96375; 99285; A9270; A9577; C1713; C9113; J0330; J1100; J1170; J1335; J1650; J2250; J2270; J2405; J2543; J2704; J2710; J3010; J3480; J7030; J7060; J7120; Q9966; Q9967

== ENCOUNTER 2022-01-11 08:12 | Outpatient (CLI) | payer BC, SELFPAY ==
--- NOTE | ~2022-01-11 | US_ITS ---
EXAMINATION: US abdomen complete DATE: 01/11/2022 09:03 INDICATION: Abdominal pain TECHNIQUE: Multiple grayscale and Doppler ultrasound images of the abdomen were obtained. COMPARISON: 03/02/2021 FINDINGS: Bowel gas obscures visualization of the pancreas. The visualized portions of the pancreas a re unremarkable. The liver demonstrates increased echogenicity, heterogenous echotexture, and decreas ed through transmission. No surface nodularity. Normal hepatopetal flow in the main portal vein. Ther e has been interval cholecystectomy. The normal common bile duct measures 5 mm. There was no sonograp hic Mejia sign. The visualized portions of the aorta and inferior vena cava are normal. The right kidney measures 10.8 x 4.9 x 4.6 cm. The left kidney measures 10.7 x 5.1 x 4.6 cm. The kidn eys demonstrate normal parenchymal echogenicity. There is no hydronephrosis. The spleen is normal in appearance and measures 10.1 cm. IMPRESSION: 1. Diffuse hepatic steatosis, otherwise unremarkable postcholecystectomy ultrasound. Reviewed, dictated and finalized at location A. IMPRESSION: 1. Diffuse hepatic steatosis, otherwise unremarkable postcholecystectomy ultras ound.
== END 2022-01-11 08:13 | disposition home or self-care (01) ==
LOC: ANHIMG 08:13
PROVIDERS: PCP Internal Medicine; Visit Provider Internal Medicine
DX: R10.11 Right upper quadrant pain (principal); K76.0 Fatty (change of) liver, not elsewhere classified
CPT/HCPCS: 76700

== ENCOUNTER 2024-12-11 14:06 | Outpatient (CLI) | payer MEDICARE, MEDICAID, SELFPAY ==
--- NOTE | ~2024-12-11 | DEXA_ITS ---
Bone Density Report Name: ROSARIO DEMPSEY Age: 69 Sex: Female Ethnicity: White Date of : 1955 Indication: postmenopausal; screening for osteoporosis; rheumatoid arthritis; Referring Provider: UNKNOWN, UNKNOWN Study: Bone densitometry was performed. Exam Date: December 11, 2024 Accession number: [id number] Bone Density: Region BMD T-score Z-score Classification AP Spine(L1-L4) 1.074 0.2 2.5 Normal Femoral Neck (Left) 0.703 -1.3 0.6 Osteopenia Total Hip (Left) 0.919 -0.2 1.4 Normal Femoral Neck (Right) 0.671 -1.6 0.3 Osteopenia Total Hip (Right) 0.909 -0.3 1.3 Normal Femoral Neck Mean 0.687 -1.5 0.4 Osteopenia Total Hip Mean 0.914 -0.2 1.4 Normal World Health Organization criteria for BMD impression classify patients as: Normal (T-score at or above -1.0), Osteopenia (T-score between -1.0 and -2.5), or Osteoporosis (T-score at or below -2.5). 10-year Fracture Risk(1): Major Osteoporotic Fracture 11% Hip Fracture 1.9% Reported Risk Factors: [place] (), Neck BMD=0.671, BMI=46.7, rheumatoid arthritis (1) FRAX(R) Version 3.08. Fracture probability calculated for an untreated patient. Fracture probability may be lower if the patient has received treatment. Clinical Information Provided by Patient: Has rheumatoid arthritis Has used the following medications: Vitamin D Patient maximum height was 61. Menopause Age: 38 No regular weight bearing exercise Drinks caffeinated beverages Onset of menses at age 11 Number of children 4 Impression: The patient has low bone mass, based on the Right Femoral Neck T-score. Discussion: BONE DENSITY IS LOW AT ONE OR MORE SKELETAL SITES. This patient's lowest T-score is low at one or more skeletal sites. It meets the World Health Organization's (WHO) criteria for ?low bone mass? (T-score between -1.0 and -2.5). The patient's 10-year risk of fracture as calculated by FRAX is less than the threshold where pharmacological therapy is recommended by the National Osteoporosis Foundation (NOF). However, all treatment decisions require clinical judgment and consideration of individual patient factors, including patient preferences, comorbidities, previous drug use, risk factors not captured in the FRAX model (e.g., frailty, falls, vitamin D deficiency, increased bone turnover, interval significant decline in bone density) and possible under or overestimation of fracture risk by FRAX. The patient should follow a healthful lifestyle (good nutrition with adequate calcium and vitamin D, and appropriate weight-bearing exercise). Follow-Up: Consider repeating this study in 2 to 3 years to reassess this patient's status, or sooner if there is some new clinical indication. Reported by: LYNDSAY on 12/11/2024 2:54:00 PM. Reviewed, dictated and finalized at location A.
--- NOTE | ~2024-12-11 | MM_ITS ---
EXAMINATION: MM screening gino BI w bea HISTORY: Screening TECHNIQUE: Craniocaudal and mediolateral oblique 3-D tomosynthesis images were obtained and synthetic 2-D images were generated. CAD analysis was submitted and interpreted. COMPARISON: No prior mammogram is available for comparison at this institution. BREAST PARENCHYMAL COMPOSITION: Not dense: There are scattered areas of fibroglandular density. FINDINGS: There is no mammographic evidence for malignancy in the left breast. There are clustered sm all masses in the upper inner quadrants of the right breast, middle third. There are no suspicious ca lcifications or architectural distortion. IMPRESSION: 1. Clustered indeterminate masses centered in the upper inner quadrant of the right breast, middle th ird. 2. Additional mammographic views and possible breast ultrasound are recommended. BI-RADS Category 0: Incomplete: Needs additional imaging evaluation. Reviewed, dictated and finalized at location B. IMPRESSION: 1. Clustered indeterminate masses centered in the upper inner quadrant of the r ight breast, middle third. 2. Additional mammographic views and possible breast ultrasound are recommended . BI-RADS Category 0: Incomplete: Needs additional imaging evaluation.
--- OUTSIDE RECORDS SUMMARY | 2024-12-11 14:12 | XMS_ITS | Clinical Summary ---
Author Organization [address] Address [address] [place] [phone] Care Team Providers Care Technical Support Associate Name Role Phone Silke Beard LONNIE Primary Care Provider Allergies No known active allergies Medications atorvastatin (LIPITOR) 80 mg tablet Take 1 tablet (80 mg total) by mouth daily Active carvediloL (COREG) 25 mg tablet Take 1 tablet (25 mg total) by mouth 2 (two) times a day with meals 3 Active clopidogreL (PLAVIX) 75 mg tablet Take 1 tablet (75 mg total) by mouth daily Active Jardiance 10 mg tablet Take 1 tablet (10 mg total) by mouth daily 5 Active ezetimibe (ZETIA) 10 mg tablet Take 1 tablet (10 mg total) by mouth daily Active ezetimibe-simva statin (VYTORIN) 10-10 mg per tablet Take 1 tablet by mouth nightly Active furosemide (LASIX) 20 mg tablet Take 1 tablet (20 mg total) by mouth daily 5 Active levothyroxine (SYNTHROID) 50 mcg tablet Take 1 tablet (50 mcg total) by mouth encoding clerk before breakfast Active Active Problems No known active problems Encounters Date Type Department Care Team Description 11/19/2024 Results Follow-Up [facility] Diabetes [facility]ocrine Care at [address] [place] [address] Andre Lozano, T3, free, T4, free, Thyroid peroxidase antibody (TPO), TSH 11/18/2024 3:50 PM CDT Lab [facility] Out[facility] - Outpatient Center at [address] [address] Hypothyroidism, unspecified type 11/18/2024 3:00 PM CDT Office Visit [facility] Diabetes Endocrine [facility] at [address] [place] [phone] Andre Lozano DO Hypothyroidism, unspecified type from Last 3 Months Social History Tobacco Use Types Packs/Day Years Used Date Smoking Tobacco: Never Tobacco Cessation:Counseling Given: Not Answered Comments Unknown Sex and Gender Information Value Date Recorded Sex Assigned at Not on file Legal Sex Female 2:59 PM CDT Gender Identity Not on file Sexual Orientation Not on file Obstetrics History Last Filed Vital Signs Vital Sign Reading Time Taken Comments Blood Pressure 136/72 11/18/2024 3:26 PM CDT Pulse 65 11/18/2024 3:26 PM CDT Temperature - - Respiratory Rate - - Oxygen Saturation - - Inhaled Oxygen Concentration - - Weight 110.9 kg (244 lb 6.4 oz) 11/18/2024 3:26 PM CDT Height 154.9 cm (5' 1 ) 11/18/2024 3:26 PM CDT Body Mass Index 46.18 11/18/2024 3:26 PM CDT Plan of Treatment Health Maintenance Due Date Last Done Comments Breast Cancer Screening-Mammogram 1953 Colon Cancer Screening-Colonoscopy 1955 Depression Screening 1953 Fall Risk Assessment 1953 Hepatitis C Screening 1955 Osteoporosis Screening-Bone Density Scan 1953 Hepatitis B Screening 1971 Zoster Vaccine (1 of 2) 2003 Well Visit 65+ 2018 Covid-19 Vaccine (5 - 2023-2 5 season) 2024 02/14/2022, 09/14/2021, 12/05/2020, Additional history exists DTaP/Tdap/Td Vaccine (3 - Td or Tdap) 11/03/2034 11/03/2024, 10/27/2013 Pneumococcal vaccine 65+ Completed 022, 02/14/2022, 09/24/2014, Additional history exists Influenza Vaccine Completed 05/05/2024, , 09/14/2021, Additional history exists Procedures Procedure Name Priority Date/Time Associated Diagnosis Comments TSH Routine 11/18/2024 3:55 PM CDT Hypothyroidism, unspecified type THYROID PEROXIDASE ANTIBODY Routine 11/18/2024 3:55 PM CDT Hypothyroidism, unspecified type T4, FREE Routine 11/18/2024 3:55 PM CDT Hypothyroidism, unspecified type T3, FREE Routine 11/18/2024 3:55 PM CDT Hypothyroidism, unspecified type from Last 3 Months Results * (ABNORMAL) Thyroid peroxidase antibody (TPO) (11/18/2024 3:55 PM CDT) Anti Thyroid Peroxidase 81(H) <=34 IUnits/mL Comment: ATPO Interpretive Data Results may be up to 28% higher in patients receiving Itraconazole. Current interpretive data was last revised 2020. Testing performed by: [facility], [address] [place] [address]., [id number] Blood 11/18/2024 3:55 PM CDT 11/19/2024 10:42 AM CDT Andre Lozano DO LAB BLOOD ORDERABLES Final Result Performing Organization Address [facility] Co de Phone Number [place] [phone] [place] [address] * T3, free (11/18/2024 3:55 PM CDT) Free T3 2.7 2.0 - 4.4 pg/mL Comment:Testing performed by : [facility], [address] [place] [address]., [id number] Blood 11/18/2024 3:55 PM CDT 11/18/2024 8:54 PM CDT Andre Lozano DO LAB BLOOD ORDERABLES Final Result [place] [id number] [place] [address] * TSH (11/18/2024 3:55 PM CDT) Thyroid Stimulating Hormone 2.12 0.30 - 4.20 mcIUnit/mL Comment:Testing performed by : [facility], [address] [place] [address]., [id number] Blood 11/18/2024 3:55 PM CDT 11/18/2024 8:54 PM CDT Andre Lozano DO LAB BLOOD ORDERABLES Final Result [place] [id number] [address] [place] [address] * T4, free (11/18/2024 3:55 PM CDT) Free T4 1.10 0.90 - 1.70 ng/dL Comment:Testing performed by : [facility], [address] [place] [address], [address] Blood 11/18/2024 3:55 PM CDT 11/18/2024 8:54 PM CDT Andre Lozano DO LAB BLOOD ORDERABLES Final Result [id number] [place] [address] from Last 3 Months Insurance MEDICARE IDPA Care Teams Technical Support Associate Relationship Specialty Start Date End Date Silke Beard NP [address] [place] [address] PCP - General Nurse Practitioner 11/13/24
--- OUTSIDE RECORDS SUMMARY | 2024-12-11 14:12 | XMS_ITS | Encounter Summary ---
Author Organization [facility] Address [address] [place] [id number] Care Team Providers Care Stretcher Operator Name Role Phone Silke Beard CERTIFIED PEER SPECIALIST Primary Care Provider Encounter Details Date Type Department Care Team (Late st Contact Info) Description 11/19/2024 Results Follow-Up [facility] Diabetes Endocrine Care at [address] [place] [phone] Andre Lozano DO [address] [place] [address] T3, free, T4, free, Thyroid peroxidase antibody (TPO), TSH Social History Tobacco Use Types Packs/Day Years Used Date Smoking Tobacco: Never Comments Unknown Sex and Gender Information Value Date Recorded Sex Assigned at Not on file Legal Sex Female 2:59 PM CDT Gender Identity Not on file Sexual Orientation Not on file documented as of this encounter Miscellaneous Notes * Telephone Encounter - Kim Gamble MA - 11/19/2024 12:59 PM CDT Called Kathie, the patients daughter in law and she would like for you to call her back. She has somequestions in regards to the results. 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 Please also let her know that the full thyroid hormone panel came back completely normal so she should continue her currentdose of Levothyroxine. documented in this encounter Plan of Treatment Not on file documented as of this encounter Visit Diagnoses Not on filedocumented in this encounter Care Teams Stretcher Operator Relationship Specialty Start Date End Date Silke Beard NP [address] [place] [address] [address] [address] PCP - General Nurse Practitioner 11/13/24 documented as of this encounter
--- OUTSIDE RECORDS SUMMARY | 2024-12-11 14:12 | XMS_ITS | Referral Summary ---
Author Organization [address] Address [address] [place] [phone] Care Team Providers Care General Ledger Accountant Name Role Phone Silke Beard LONNIE Primary Care Provider Encounters Date Type Department Care Team Description 11/19/2024 Results Follow-Up [facility] Diabetes Endocrine Care at [place] [phone] Andre Lozano DO T3, free, T4, free, Thyroid peroxidase antibody (TPO), TSH 11/18/2024 3:50 PM CDT Lab [facility] Outpatient Lab - Outpatient Center at [address] [address] Hypothyroidism, unspecified type 11/18/2024 3:00 PM CDT Office Visit [facility] Diabetes Endocrine Care at [address] [phone] Andre Lozano DO Hypothyroidism, unspecified type from Last 3 Months Allergies No known active allergies Medications atorvastatin [...] tablet (20 mg total) by mouth daily Active levothyroxine (SYNTHROID) 50 mcg tablet Take 1 tablet (50 mcg total) by mouth sox analyst before breakfast Active Active Problems No known active problems Social History Tobacco Use Types Packs/Day Years Used Date Smoking Tobacco: Never Tobacco Cessation:Counseling Given: Not Answered Comments Unknown Sex and Gender Information Value Date Recorded Sex Assigned at Not on file Legal Sex Female 2:59 PM CDT Gender Identity Not on file Sexual Orientation Not on file Last Filed Vital Signs Vital Sign Reading [...] 11/18/2024 3:26 PM CDT Plan of Treatment Not on file Procedures Procedure Name Priority Date/Time Associated Diagnosis [...] was last revised 2020. Testing performed by: [facility], [address] [place]., [address] Blood 11/18/2024 3:55 PM CDT 11/19/2024 10:42 AM CDT Andre Dianeel LAB BLOOD ORDERABLES Final Result [address] [place] [address] * T3, free (11/18/2024 3:55 PM CDT) Free T3 2.7 2.0 - 4.4 pg/mL Comment:Testing performed by : [facility], [address] [place] [address]., [id number] Blood 11/18/2024 3:55 PM CDT 11/18/2024 8:54 PM CDT Andre Lozano DO LAB BLOOD ORDERABLES Final Result Performing Organization Address [facility] Co de Phone Number [phone] [address] [place] [address] * TSH (11/18/2024 3:55 PM CDT) Thyroid Stimulating Hormone 2.12 0.30 - 4.20 mcIUnit/mL Comment:Testing performed by : [facility], [address] [place] [address]., [id number] Blood 11/18/2024 3:55 PM CDT 11/18/2024 8:54 PM CDT Andre Nitin Lozano LAB BLOOD ORDERABLES Final Result [address] [place] [address] * T4, free (11/18/2024 3:55 PM CDT) Free T4 1.10 0.90 - 1.70 ng/dL Comment:Testing performed by : [facility], [address] [facility], [place]., [address] Blood 11/18/2024 3:55 PM CDT 11/18/2024 8:54 PM CDT Andre Taveras Lozano DO LAB BLOOD ORDERABLES Final Result [address] [address] [facility] [place] [address] from Last 3 Months Insurance MEDICARE IDPA Care Teams General Ledger Accountant Relationship Specialty Start Date End Date Silke Beard NP [address] [place] [address] PCP - General Nurse Practitioner 11/13/24
--- OUTSIDE RECORDS SUMMARY | 2024-12-11 14:13 | XMS_ITS | CONTINUITY OF CARE DOCUMENT ---
Author Name kayla garza Address Unknown Organization [facility] Address [address] [place] [address] Phone [phone] Care Team Providers Care Grievance And Appeals Coordinator Name Role Phone Juan Antonio LEBRON, Woody Unavailable SAMSON CHRISTENSEN MD Unavailable SAMSON CHRISTENSEN MD Unavailable PROBLEMS Condition Status Date Provider Notes Morbid obesity active Woody Romano MD Lower extremity edema active Woody Desir Hypothyroidism active Woody Romano MD Hypertension active Woody Romano MD Depression active Woody Romano MD Chest pain- abnl stress nuc - small rev lat wall defect 2020 active Aubrey Oliva Hyperlipidemia LDL 124, TG 308 active Brodie Romano MD Diabetes mellitus, type 2 Aic 6.2 active To dina Romano MD Shortness of breath Nl lv fn on echo , diastolic dysfn, mild CHACHA, 04/2021 active Aubrey Oliva Sleep apnea, mild active Woody Romano MD Abnormal nuclear stress test --CTA cors, mild OM1 disease, 24-49%, 07/2022 active Aubrey Oliva Neck pain, right active Aubrey Oliva ENCOUNTERS Date Type Provider Location Encounter Diagnosis - In-person encounter Office Visit Woody Romano MD [facility] - In-person encounter Office Visit Woody Romano MD [facility] - In-person encounter Office Visit Woody Romano MD [facility] Sleep apnea, mild - In-person encounter Office Visit Woody Romano MD [facility] - In-person encounter Office Visit Woody Romano MD [facility] - In-person encounter Office Visit Woody Romano MD [facility] Chest pain- abnl stress nuc - small rev lat wall defect bnormal nuclear stress test--CTA cors, mild OM1 disease, 24-49%, 07/2022Neck pain, right - In-person encounter Office Visit Woody Romano MD [facility] - In-person encounter Office Visit Woody Romano MD [facility] - In-person encounter Office Visit Woody Romano MD [facility] Shortness of breath Nl lv fn on echo , diastolic dysfn, mild CHACHA, 04/2021 - In-person encounter Office Visit Woody Romano MD [facility] - In-person encounter Office Visit Woody Romano MD [facility] Chest pain- abnl stress nuc - small rev lat wall defect 2020Hyperlipidemia LDL 124, TG 308Diabetes mellitus, type 2 Aic 6.2Shortness of breath Nl lv fn on echo , diastolic dysfn, mild CHACHA, leep apnea, mild - In-person encounter Office Visit Woody Romano MD [facility] Shortness of breath Nl lv fn on echo , diastolic dysfn, mild CHACHA, leep apnea, mild - In-person encounter Office Visit Woody Romano MD [facility] VITAL SIGNS Date Observation Value Provider Body Mass Index (Ratio) 45.90 kg/m2 Patrick Romaon MD blood pressure, diastolic 99 mm[Hg] Killian kate [place] blood pressure, systolic 181 mm[Hg] Luh weldon [place] oxygen saturation, oximetry 96 % [facility] 70 [facility]min [facility] respiratory rate E&M 12 /min [facility] weight E&M 251 [lb_av] [facility] height E&M 62 [in_i] [facility] blood pressure, cuff size regular Killian kate [place] Body Mass Index (Ratio) 47.18 kg/m2 Patrick Romano MD blood pressure, cuff size large Ke rri Patnesocrates blood pressure, diastolic 80 mm[Hg] Ke rri Darryluenenfanshul blood pressure, systolic 126 mm[Hg] Stephany Granados oxygen saturation, oximetry 96 % Paula Granados respiratory rate E&M 12 /min Paula anderson pulse rate 70 /min Paula Andrade [facility] weight E&M 258 [lb_av] Paula Darryluenenfe [facility] height E&M 62 [in_i] Paula Gruenenfe [facility] Body Mass Index (Ratio) 45.90 kg/m2 Patrick Romano MD blood pressure, diastolic 95 mm[Hg] Sarah [facility] blood pressure, systolic 159 mm[Hg] Linda [facility] blood pressure, cuff size regular Ja rret blood pressure, diastolic 95 mm[Hg] Ja rret blood pressure, systolic 159 mm[Hg] Malina romeo weight E&M 251 [lb_av] Neo pulse rate 68 /min Neo oxygen saturation, oximetry 96 % Neo respiratory rate E&M 12 /min Neo height E&M 62 [in_i] Neo Body Mass Index (Ratio) 47.07 kg/m2 Patrick Romano MD pulse rate 65 /min Radha Allyson respiratory rate E&M 20 /min Radha Valadez oxygen saturation, oximetry 95 % Radha Valadez blood pressure, diastolic 80 mm[Hg] jonny Valadez blood pressure, systolic 154 mm[Hg] [facility] tanya Valadez blood pressure, cuff size large jonny Valadez weight E&M 257.4 [lb_av] Radha Valadez height E&M 62 [in_i] Radha Valadez Body Mass Index (Ratio) 42.43 kg/m2 Patrick Romano MD blood pressure, diastolic 61 mm[Hg] Roseanne Powell blood pressure, systolic 130 mm[Hg] [facility] sameera Powell oxygen saturation, oximetry 96 % Callie Powell pulse rate 67 /min Callie desir respiratory rate E&M 16 /min Gerri Powell weight E&M 232 [lb_av] Callie desir blood pressure, cuff size large Roseanne Powell height E&M 62 [in_i] Callie desir Body Mass Index (Ratio) 31.09 kg/m2 Patrick Romano MD blood pressure, diastolic 67 mm[Hg] St nallely Blake blood pressure, systolic 132 mm[Hg] Sta marbella Hayden oxygen saturation, oximetry 96 % Randa Hayden pulse rate 73 /min Randa Hayden weight E&M 170 [lb_av] Randa Hayden respiratory rate E&M 16 /min Randa D guillermo height E&M 62 [in_i] Randa Hayden Body Mass Index (Ratio) 45.83 kg/m2 Patrick Romano MD blood pressure, diastolic 89 mm[Hg] St brwoning Hayden blood pressure, systolic 171 mm[Hg] Kimberly tyson [place] oxygen saturation, oximetry 92 % Randa Hayden pulse rate 70 /min Randa Hayden respiratory rate E&M 16 /min Randa Karlee guillermo weight E&M 250.6 [lb_av] Randa Hayden height E&M 62 [in_i] Randa Hayden Body Mass Index (Ratio) 46.82 kg/m2 Patrick Romano MD blood pressure, diastolic 86 mm[Hg] Sa ra Mullins blood pressure, systolic 200 mm[Hg] Cielo a Mullins respiratory rate E&M 18 /min Cee Si ms oxygen saturation, oximetry 92 % Cee Mullins pulse rate 67 /min Cee Mullins weight E&M 256 [lb_av] Cee Mullins height E&M 62 [in_i] Cee Mullins Body Mass Index (Ratio) 46.64 kg/m2 Patrick Romano MD blood pressure, cuff size large Roseanne jacome [place] blood pressure, diastolic 80 mm[Hg] Mi ayaz [place] blood pressure, systolic 160 mm[Hg] Omid helduke [place] oxygen saturation, oximetry 94 % Callie [place] respiratory rate E&M 18 /min Gerri escalante [place] pulse rate 91 /min Callie Connor karlee weight E&M 255 [lb_av] Callie Connor karlee height E&M 62 [in_i] Callie Ikerkillian karlee Body Mass Index (Ratio) 44.62 kg/m2 Patrick Romano MD blood pressure, cuff size large Roseanne jacome [place] blood pressure, diastolic 80 mm[Hg] Roseanne jacome [place] blood pressure, systolic 146 mm[Hg] Omid sameera Powell oxygen saturation, oximetry 97 % Callie Powell respiratory rate E&M 16 /min Gerri escalante [place] pulse rate 76 /min Callie desir weight E&M 244 [lb_av] Callie Geeta desir height E&M 62 [in_i] Callie Geeta desir Body Mass Index (Ratio) 44.73 kg/m2 Patrick Romano MD blood pressure, diastolic 70 mm[Hg] Almas Gutierrez blood pressure, systolic 120 mm[Hg] Fartun Gutierrez oxygen saturation, oximetry 96 % Kelsi Gutierrez respiratory rate E&M 16 /min Shoaib Gutierrez pulse rate 66 /min Kelsi mckinney weight E&M 244.6 [lb_av] Kelsi renteria height E&M 62 [in_i] Kelsi mckinney Body Mass Index (Ratio) 44.62 kg/m2 Patrick Romano MD blood pressure, diastolic 90 mm[Hg] Sarah [facility] blood pressure, systolic 158 mm[Hg] Linda [facility] blood pressure, cuff size regular Farhat Trinhby pulse rate 84 /min Peyton Tabares respiratory rate E&M 18 /min Peyton Tabares oxygen saturation, oximetry 95 % Peyton Tabares blood pressure, diastolic 90 mm[Hg] Farhat Tabares blood pressure, systolic 158 mm[Hg] Fitz Tabares weight E&M 244 [lb_av] Peyton Tabares height E&M 62 [in_i] Peyton Tabares ALLERGIES No Known Drug Allergies RESULTS Date Observation Value Provider Reference Range Interpretation Location 1 hemoglobin A1C, blood, as % of total hemoglobin 6.6 % [facility] 4.8-5.6 High 1 free thyroxine index 1.9 [facility] 1.2-4.9 1 triiodothyronine resin uptake 25 % [facility] 24-39 1 thyroxine, serum, total 7.5 ug/dL [facility] 4.5-12.0 1 thyroid stimulating hormone, serum 2.770 u[IU]/mL [facility] 0.450-4.500 1 lipoprotein, beta, serum, point, quantitative, calculated 44 mg/dL [facility] 0-99 1 HDL cholesterol, serum 45 mg/dL [facility] >39 1 triglyceride, serum, random 118 mg/dL [facility] 0-149 1 cholesterol, serum 110 mg/dL [facility] [phone]/04/0 1 alanine aminotransferase (SGPT), serum 18 1/L [facility] 0-32 1 aspartate aminotransferase (SGOT), serum 18 1/L [facility] 0-40 1 alkaline phosphatase, serum 74 1/L [facility] 44-121 1 bilirubin, serum, total 0.4 mg/dL [facility] 0.0-1.2 1 albumin/globulin ratio, serum 1.7 [facility] 1.2-2.2 1 globulin, serum 2.6 [facility] 1.5-4.5 1 albumin, serum 4.4 g/dL [facility] 3.8-4.8 1 protein, total, serum 7.0 g/dL [facility] 6.0-8.5 1 calcium, serum 9.6 mg/dL [facility] 8.7-10.3 1 carbon dioxide, venous blood 26 mmol/L [facility] 20-29 1 chloride, serum 100 mmol/L [facility] 96-106 1 potassium, serum 3.8 mmol/L [facility] 3.5-5.2 1 sodium, serum 141 mmol/L [facility] 619-253 7100/04/0 1 urea nitrogen/creatinine ratio, serum 21 [facility] 12-28 1 creatinine, serum 0.98 mg/dL [facility] 0.57-1.00 1 urea nitrogen, blood 21 mg/dL [facility] 8-27 1 blood glucose, random 134 mg/dL [facility] 65-99 High 1 basophil count, absolute 0.0 x10E3/uL [facility] 0.0-0.2 1 Eosinophil Absolute Count 0.1 X10E3/UL [facility] 0.0-0.4 1 monocyte count, blood, automated 0.5 X10E3/UL [facility] 0.1-0.9 1 lymphocyte count, blood, automated 2.5 X10E3/UL [facility] 0.7-3.1 1 Absolute Neutrophils 3.3 X10E3/UL [facility] 1.4-7.0 1 basophils as percent of blood leukocytes 0 % [facility] Not Estab. 1 eosinophils as percent of blood leukocytes 1 % [facility] Not Estab. 1 monocytes as percent of blood leukocytes 8 % [facility] Not Estab. 1 lymphocytes as percent of blood leukocytes 39 % [facility] Not Estab. 1 neutrophils as percent of blood leukocytes 52 % [facility] Not Estab. 1 platelet count 254 [phone]/04/0 1 red blood cell distribution width 13.3 % [facility] 11.7-15.4 1 mean corpuscular hemoglobin concentration, RBC 33.0 G/DL [facility] 31.5-35.7 1 mean corpuscular hemoglobin, RBC 29.7 pg [facility] 26.6-33.0 1 mean corpuscular volume, RBC 90 fL [facility] 79-97 1 hematocrit, blood 38.5 % [facility] 34.0-46.6 1 hemoglobin, blood 12.7 g/dL [facility] 11[facility]-15.9 1 erythrocyte (RBC) count 4.28 X10E6/UL [facility] 3.77-5.28 1 leukocyte count, blood 6.4 X10E3/UL [facility] 3.4-10.8 7 ferritin, serum 80 ng/mL [facility] 30-400 7 iron saturation percent, serum 15 % [facility] 15-55 7 iron, serum 52 ug/dL [facility] 38-169 7 iron binding capacity, unsaturated 291 ug/dL [facility] 404-250 6971/08/2 7 iron binding capacity, total 343 ug/dL [facility] 429-037 0854/08/2 7 free thyroxine index 2.2 [facility] 1.2-4.9 7 triiodothyronine resin uptake 27 % [facility] 24-39 7 thyroxine, serum, total 8.2 ug/dL [facility] 4.5-12.0 7 thyroid stimulating hormone, serum 2.500 u[IU]/mL [facility] 0.450-4.500 7 lipoprotein, beta, serum, point, quantitative, calculated 124 mg/dL [facility] 0-99 High 7 HDL cholesterol, serum 37 mg/dL [facility] >39 Low 7 triglyceride, serum, random 308 mg/dL [facility] 0-149 High 7 cholesterol, serum 216 mg/dL [facility] 100-199 High 7 alanine aminotransferase (SGPT), serum 20 1/L [facility] 0-44 7 aspartate aminotransferase (SGOT), serum 19 1/L [facility] 0-40 7 alkaline phosphatase, serum 65 1/L [facility] 48-121 7 bilirubin, serum, total 0.2 mg/dL [facility] 0.0-1.2 7 albumin/globulin ratio, serum 1.3 [facility] 1.2-2.2 7 globulin, serum 3.2 [facility] 1.5-4.5 7 albumin, serum 4.1 g/dL [facility] 3.8-4.8 7 protein, total, serum 7.3 g/dL [facility] 6.0-8.5 7 calcium, serum 10.5 mg/dL [facility] 8.6-10.2 High 7 carbon dioxide, venous blood 27 mmol/L [facility] 20-29 7 chloride, serum 99 mmol/L [facility] 96-106 7 potassium, serum 4.6 mmol/L [facility] 3.5-5.2 7 sodium, serum 141 mmol/L [facility] 670-089 5329/08/2 7 urea nitrogen/creatinine ratio, serum 29 [facility] 10-24 High 7 eGFR if 98 mL/min/{1 .73_m2} [facility] >59 7 eGFR if not 85 mL/min/{1 .73_m2} [facility] >59 7 creatinine, serum 0.93 mg/dL [facility] 0.76-1.27 7 urea nitrogen, blood 27 mg/dL [facility] 8-27 7 blood glucose, random 123 mg/dL [facility] 65-99 High 7 pro brain natriuretic peptide 614 pg/mL [facility] 0-376 High 7 hemoglobin A1C, blood, as % of total hemoglobin 6.2 % [facility] 4.8-5.6 High 7 basophil count, absolute 0.0 x10E3/uL [facility] 0.0-0.2 7 Eosinophil Absolute Count 0.1 X10E3/UL [facility] 0.0-0.4 7 monocyte count, blood, automated 0.5 X10E3/UL [facility] 0.1-0.9 7 lymphocyte count, blood, automated 3.2 X10E3/UL [facility] 0.7-3.1 High 7 Absolute Neutrophils 5.2 X10E3/UL [facility] 1.4-7.0 7 basophils as percent of blood leukocytes 0 % [facility] Not Estab. 7 eosinophils as percent of blood leukocytes 1 % [facility] Not Estab. 7 monocytes as percent of blood leukocytes 6 % [facility] Not Estab. 7 lymphocytes as percent of blood leukocytes 35 % [facility] Not Estab. 7 neutrophils as percent of blood leukocytes 58 % [facility] Not Estab. 7 platelet count 407 X10E3/UL [facility] 423-045 3253/08/2 7 red blood cell distribution width 12.8 % [facility] 11.6-15.4 7 mean corpuscular hemoglobin concentration, RBC 32.3 G/DL [facility] 31.5-35.7 7 mean corpuscular hemoglobin, RBC 29.3 pg [facility] 26.6-33.0 7 mean corpuscular volume, RBC 91 fL [facility] 79-97 7 hematocrit, blood 39.3 % [facility] 37.5-51.0 7 hemoglobin, blood 12.7 g/dL [facility] 13.0-17.7 Low 7 erythrocyte (RBC) count 4.33 X10E6/UL [facility] 4.14-5.80 7 leukocyte count, blood 9.0 X10E3/UL [facility] 3.4-10.8 HISTORY OF MEDICATION USE Medication Status Instructions Dates Provider Indications Com ments losartan 100 mg tablet active Take 1 tablet by mouth once daily Olga Wesley ezetimibe 10 mg tablet active Aubrey Oliva atorvastatin 80 mg tablet active Aubrey Oliva meloxicam 15 mg tablet active Take 1 tablet by mouth once daily Tawana Dao meloxicam 15 mg tablet completed Take 1 tablet by mouth once daily - Woody Romano MD hydrochlorothiazide 25 mg tablet active Take 1 tablet by mouth once daily Woody Romano MD potassium chloride 20 mEq tablet,ER particles/crystals completed Take 1 tablet by mouth once daily - Aubrey Oliva hydralazine 50 mg tablet completed Take 1 tablet by mouth twice daily - Aubrey Oliva clopidogrel 75 mg tablet completed Take 1 tablet by mouth once daily - Aubrey Oliva carvedilol 25 mg tablet active Take 1 tablet by mouth twice daily Pippa De La Torre isosorbide mononitrate 30 mg tablet extended release 24 hr completed TAKE 1 TABLET BY MOUTH EVERY DAY - Aubrey Oliva atorvastatin 80 mg tablet completed Take 1 tablet by mouth once daily - Aubrey Oliva hydralazine 50 mg tablet completed Take 1 1/2 tablet by mouth twice a day - Amanda Cárdenas losartan 100 mg tablet completed Take 1 tablet by mouth once a day - Kerrie Carrizales hydralazine 50 mg tablet completed Take 1 tablet by mouth twice a day - Mary Kay Goodman RN atorvastatin 80 mg tablet completed Take 1 tablet by mouth once a day - Woody Romano MD Plavix 75 mg tablet completed Take 1 table t by mouth once a day - Woody Romano MD oxybutynin chloride 5 mg tablet active Woody Romano MD simvastatin 20 mg tablet completed - Woody Romano MD Euthyrox 50 mcg tablet active Wodoy Romano MD sertraline 100 mg tablet active Aubrey Oliva tizanidine 4 mg tablet active Take 1 tablet by mouth once a day Aubrey Oliva ibuprofen 600 mg tablet completed - Peyton Trinhby hydrochlorothiazide 25 mg tablet completed Take 1 tablet by mouth once a day - [facility] lisinopril 40 mg tablet completed TAKE 1 TABLET [facility] mg tablet active Take 1 tablet by mouth twice daily [facility] potassium chloride 20 mEq tablet,ER particles/crystals completed TAKE 1 TABLET BY MOUTH EVERY DAY - Miesha Grant meloxicam 15 mg tablet completed - Peyton Claiborne lisinopril 40 mg tablet completed TAKE 1 TABLET BY MOUTH ONCE DAILY - Peyton Raysa metformin 1,000 mg tablet completed - Peyton Claiborne meloxicam 15 mg tablet completed - [facility] meloxicam 15 mg tablet completed Take 1 tablet by mouth once a day - [facility] carvedilol 25 mg tablet completed TAKE 1 TABLET BY MOUTH TWICE DAILY - Aubrey Oliva hydrocodone-acetamino phen 5-325 mg tablet active Peyton Tabares amoxicillin-pot clavulanate 875-125 mg tablet completed - Peyton Raysa potassium chloride 20 mEq tablet,ER particles/crystals completed - Peyton Raysa metformin 1,000 mg tablet completed - Peyton Tabares meloxicam 15 mg tablet completed - Peyton Tabares SOCIAL HISTORY Date Observation Value Provider smoking status Never smoker Aubrey Oliva smoking status Never smoker Woody Romano MD smoking status Never smoker Aubrey Oliva social history E&M Regular Exerc ise - no Smoking History: Tadeo francis has never smoked. Aubrey Oliva smoking status Never smoker Radha Valadez social history reviewed E&M revi ewed - no changes required Aubrey Oliva social history E&M Regular Exerc ise - no Smoking History: Tadeo francis has never smoked. Aubrey Oliva smoking status Never smoker Callie Dong and social history reviewed E&M revi ewed - no changes required Aubrey Oliva smoking status Never smoker Randa Blake social history E&M Regular Exerc ise - no Smoking History: Tadeo francis has never smoked. Aubrey Oliva social history reviewed E&M revi ewed - no changes required Woody Romano MD social history reviewed E&M revi ewed - no changes required Woody Romano MD smoking status Never smoker Randa Blake social history reviewed E&M revi ewed - no changes required Woody Romano MD social history E&M S moking History: Tadeo francis has never smoked. Aubrey Oliva smoking status Never smoker Callie Dong and social history reviewed E&M revi ewed - no changes required Aubrey Oliva social history E&M S moking History: Tadeo francis has never smoked. Aubrey Oliva smoking status Never smoker Callie Dong and social history reviewed E&M revi ewed - no changes required Aubrey Oliva smoking status Never smoker Woody Romano MD social history reviewed E&M revi ewed - no changes required Aubrey Ahmedzai social history reviewed E&M revi ewed - no changes required Aubrey Ahmedzai INSURANCE PROVIDERS Payer name Policy type / Coverage type [employer] red libertarian ID [facility] [id number] ADVANCE DIRECTIVES Name Date DISCUSSED - NO DECISION MADE TREATMENT PLAN Date Name Performer [id number],S, Aubrey Ahmedza i [id number],S, Aubrey Ahmedza i [id number],S, Aubrey Ahmedza i [id number],S, Aubrey Ahmedza i [id number],S, Aubrey Ahmedza i [id number],S, Aubrey Ahmedza i [id number],S, Aubrey Ahmedza i [id number],S, Aubrey Ahmedza i [id number],S, Aubrey Ahmedza i [id number],S, Aubrey Ahmedza i [id number],S, Aubrey Ahmedza i [id number],S, Aubrey Ahmedza i [id number],S, Aubrey Ahmedza i [id number],S, Aubrey Ahmedza i [id number],W, Aubrey Ahmedza i [id number],S, Aubrey Ahmedza i [id number],S, Aubrey Ahmedza i [id number],S, Aubrey Ahmedza i [id number],S, Aubrey Ahmedza i [id number],S, Aubrey Ahmedza i [id number],S, Aubrey Ahmedza i [id number],S, Aubrey Ahmedza i [id number],W, Aubrey Ahmedza i [id number],S, Woody Romano MD [id number],B, Woody Romano MD [id number],W, Woody Romano MD [id number],S, Woody Romano MD [id number],W, Woody Romano MD [id number],S, Aubrey Ahmedza i [id number],W, Aubrey Ahmedza i [id number],S, Aubrey Ahmedza i [id number],S, Aubrey Ahmedza i [id number],S, Aubrey Ahmedza i [id number],S, Aubrey Ahmedza i [id number],S, Aubrey Ahmedza i [id number],S, Aubrey Ahmedza i [id number],S, Aubrey Ahmedza i [id number],S, Aubrey Ahmedza i [id number],S, Aubrey Ahmedza i [id number],S, Aubrey Ahmedza i [id number],S, Aubrey Ahmedza i [id number],S, Aubrey Ahmedza i [id number],S, Aubrey Ahmedza i [id number],B, Aubrey Dkmedza i [id number],B, Aubrey Dkmedza i [id number],B, Woody Romano MD [id number],S, Aubrey Dkmedza i [id number],S, Aubrey Dkmedza i [id number],S, Aubrey Dkmedza i [id number],S, Aubrey Dkmedza i [id number],S, Aubrey Dkmedza i [id number],S, Aubrey Dkmedza i Cardiology:This visi t has been a part of the consistent, comprehensive, and ongoing management of the chronic medical condition(s) listed above for the patient. Her updated medication list for this problem includes: Hydrochlorothiazide 25 Mg Tablet (Hydrochlorothiazide) ..... Take 1 tablet by mouth once daily Carvedilol 25 Mg Tablet (Carvedilol) ..... Take 1 tablet by mouth twice daily Losartan 100 Mg Tablet (Losartan) ..... Take 1 tablet by mouth once a day checks BP regularly at home and its usually under 140 Woody Romano MD Cardiology: H er updated medication list for this problem includes: Hydrochlorothiazide 25 Mg Tablet (Hydrochlorothiazide) ..... Take 1 tablet by mouth once daily Carvedilol 25 Mg Tablet (Carvedilol) ..... Take 1 tablet by mouth twice daily Losartan 100 Mg Tablet (Losartan) ..... Take 1 tablet by mouth once a day Aubrey Oliva Cardiology: H er updated medication list for this problem includes: Metformin 1,000 Mg Tablet (Metformin) ..... Take 1 tablet by mouth twice daily Losartan 100 Mg Tablet (Losartan) ..... [facility] H er updated medication list for this problem includes: Carvedilol 25 Mg Tablet (Carvedilol) ..... Take 1 tablet by mouth twice daily [facility]: H er updated medication list for this problem includes: Ezetimibe 10 Mg Tablet (Ezetimibe) Atorvastatin 80 Mg Tablet (Atorvastatin) [facility] Woody Romano MD Cardiology Woody Romano MD Cardiology: H er updated medication list for this problem includes: Carvedilol 25 Mg Tablet (Carvedilol) ..... Take 1 tablet by mouth twice daily Hydrochlorothiazide 25 Mg Tablet (Hydrochlorothiazide) ..... Take 1 tablet by mouth once daily Losartan 100 Mg Tablet (Losartan) ..... Take 1 tablet by mouth once a day Woody Romano MD Cardiology Woody Romano MD Cardiology Woody Romano MD Cardiology Woody Romano MD Cardiology Aubrey Oliva Cardiology Aubrey Oliva Cardiology Aubrey Oliva Cardiology Aubreyblaise Oliva Cardiology: H er updated medication list for this problem includes: Metformin 1,000 Mg Tablet (Metformin) ..... Take 1 tablet by mouth twice daily Losartan 100 Mg Tablet (Losartan) ..... Take 1 tablet by mouth once a day Aubrey starr Cardiology: B P today: 159/95 P rior BP: 154/80 (02/21/2023) Labs Reviewed: C reat: 0.98 (10/21/2021) C hol: 110 (10/21/2021) HDL: 45 (10/21/2021) LDL: 44 (10/21/2021) T (10/21/2021) Her updated medication list for this problem includes: Hydrochlorothiazide 25 Mg Tablet (Hydrochlorothiazide) ..... Take 1 tablet by mouth once daily Hydralazine 50 Mg Tablet (Hydralazine) ..... Take 1 tablet by mouth twice daily Carvedilol 25 Mg Tablet (Carvedilol) ..... Take 1 tablet by mouth twice daily Losartan 100 Mg Tablet (Losartan) ..... Take 1 tablet by mouth once a day Aubrey Ahmedzai Cardiology: H er updated medication list for this problem includes: Atorvastatin 80 Mg Tablet (Atorvastatin) ..... Take 1 tablet by mouth once daily Aubrey Ahmedzai Cardiology Aubrey Ahmedzai Cardiology Aubrey Ahmedzai Cardiology Aubrey Ahmedzai Cardiology Aubrey Ahmedzai Cardiology Aubrey Ahmedzai Cardiology Aubrey Ahmedzai Cardiology Aubrey Ahmedzai Cardiology [facility] Woody Romano MD Cardiology Woody Romano MD Cardiology Woody Romano MD Cardiology Woody Romano MD Cardiology Woody Romano MD Card[facility] Woody Romano MD Card[facility] Date Name Ultrasound, Neck, Th yroid, Parathyroid Cardiac Cath - Left - GC Creatinine, Serum CT Angio Coronaries Vitamin D, 25-Hydrox y LIPID PANEL TSH, free T4, total T3 HEMOGLOBIN A1c CBC (INCLUDES DIFF/P LT) COMPREHENSIVE METABO LIC PANEL, W/EGFR PROBNP, N TERMINAL HEMOGLOBIN A1c LIPID PANEL TSH, free T4, total T3 COMPREHENSIVE METABO LIC PANEL, W/EGFR IRON AND TOTAL IRON BINDING CAPACITY FERRITIN CBC (INCLUDES DIFF/P LT) Sleep Study Home Stress Regadenoson Complete Echo HISTORY OF PROCEDURES Procedure Date Procedure Name Provider Procedure Notes S tatus Complex e/m visit add on Woody Romano MD completed Complex e/m visit add on Woody Romano MD completed EKG Woody Romano MD completed EKG Woody Romano MD completed EKG Woody Romano MD completed
--- OUTSIDE RECORDS SUMMARY | 2024-12-11 14:13 | XMS_ITS | Clinical Summary ---
Author Organization [facility] Address [address] [place] [address] Phone Care Team Providers Care [facility] Name Role Phone Sandeep Poole MD Primary Care Provider [phone] Griselda Licona APRN, ACTIVE DIRECTORY SPECIALIST Unavailable Allergies No known active allergies Medications atorvastatin (LIPITOR) 80 MG Tablet Take 80 mg by mouth daily. Active carvedilol (COREG) 25 MG Tablet Take 25 mg by mouth 2 times daily. Active clopidogrel (PLAVIX) 75 MG Tablet Take 75 mg by mouth daily. Active ezetimibe-simva statin (VYTORIN) 10-10 MG Tablet Take 1 Tablet by mouth every evening. Active hydroCHLOROthia zide 25 MG Tablet Take 25 mg by mouth daily. Active levothyroxine (SYNTHROID) 50 MCG Tablet Take 50 mcg by mouth daily. Active losartan (COZAAR) 100 MG Tablet Take 100 mg by mouth daily. Active metFORMIN (GLUCOPHAGE) 1000 MG Tablet Take 1,000 mg by mouth 2 times daily. Active nystatin (MYCOSTATIN) 587676 UNIT/GM Cream Apply 3 times daily. Application Site: (Description and Location) Active oxybutynin (DITROPAN) 5 MG Tablet Take 5 mg by mouth 2 times daily. Active potassium chloride SA (KLORCON M) 20 MEQ Tablet Controlled Release Take 20 mEq by mouth daily. Active sertraline (ZOLOFT) 100 MG Tablet Take 100 mg by mouth daily. Active Active Problems Problem Noted Date Diagnosed Date CHACHA (obstructive sleep apnea) 05/27/2024 Obesity due to excess calories with serious liberty rbidity 05/27/2024 Snoring 05/27/2024 Family History Medical History Relation Name Comments Heart Attack Brother Hypertension Mother Relation Name Status Comments Brother Mother Social History Tobacco Use Types Packs/Day Years Used Date Smoking Tobacco: Never Smokeless Tobacco: Never Tobacco Cessation:Counseling Given: Not Answered Alcohol Use Standard Drinks/Week Comments Never 0 (1 standard drink = 0.6 oz pur e alcohol) Comments Unknown Sex and Gender Information Value Date Recorded Sex Assigned at Not on file Legal Sex Female 4:06 PM CDT Gender Identity Not on file Sexual Orientation Not on file Last Filed Vital Signs Vital Sign Reading Time Taken Comments Blood Pressure 138/76 05/27/2024 1:51 PM [facility] [employer] Pulse 86 05/27/2024 1:51 PM [facility] Temperature - - Respiratory Rate 18 05/27/2024 1:51 PM [employer] Oxygen Saturation 93% 05/27/2024 1:51 PM [employer] [employer] Inhaled Oxygen Concentration - - Weight 113.6 kg (250 lb 8 oz) 05/27/2024 1:51 PM [employer] [employer] Height 157.5 cm (5' 2 ) 05/27/2024 1:51 PM [employer] Body Mass Index 45.82 05/27/2024 1:51 PM [employer] Plan of Treatment Health Maintenance Due Date Last Done Comments DEXA Bone Density 1953 Hepatitis C Virus (HCV) Screening 1955 Mammogram 1955 Colonoscopy 1998 Colorectal Cancer Screening 1998 Cologuard 2003 Immunochemical Fecal Occult Blood 2003 Zoster Immunization (1 of 2) 2003 Respiratory Syncytial Virus (RSV) Immunization (Adult) (1 - Risk 60-74 years 1-dose series) 2013 SARS-COV-2 Immunization ( season) 2024 02/14/2022, 09/14/2021, 12/05/2020, Additional history exists DTaP/Tdap/Td Immunization Discontinued 10/27/2013 TdaP Immunization Completed 10/27/2013 Pneumococcal Immunization (50+ years) Completed 05/04/2022, 02/14/2022, 09/24/2014, Additional history exists Pneumococcal Immunization Combined Discontinued 05/04/2022, 02/14/2022, 09/24/2014, Additional history exists Influenza Immunization Completed 4, 06/11/2023, 09/14/2021, Additional history exists Hepatitis B Immunization Aged Out No longer eligible based on patient's age to complete this topic Human Papillomavirus (HPV) Immunization Aged Out No longer eligible based on patient's age to complete this topic Meningococcal Immunization (ACWY) Aged Out No longer eligible based on patient's age to complete this topic Rotavirus Immunization Aged Out No lo nger eligible based on patient's age to complete this topic Insurance MEDICAID [place] Care Teams [place] Master Relationship Specialty Start Date End Date Sandeep Poole MD [address] [place] [address] PCP - General Internal Medicine 05/06/24 Griselda Licona APRN, [facility] [id number] [id number] Nurse Practitioner Advanced Practice Nurse 05/27/24
--- OUTSIDE RECORDS SUMMARY | 2024-12-11 14:13 | XMS_ITS | Data Portability ---
Author Organization [facility] [place] Address [address] [facility] [place] [address] Care Team Providers Care Professor Of Forest Planning Name Role Phone SANDEEP CHRISTENSEN Primary Care Provider [phone] SILKE BEARD Primary Care Provider Unavailabl e Assessment Encounter Date Assessment Date Assessment LastModified by Organization Details LastModified Time 08/25/2024 08/25/2024 Coronary artery disease with atypical chest pain: Prescribe p.r.n. nitroglycerin. Continue aspirin 81 mg daily. Obtain echocardiogram and we will follow-up closely after echocardiogram to discuss further ischemia evaluation. ER precautions by EMS in the interim discussed. Diastolic dysfunction: Clinically appears euvolemic. Obtain proBNP to assess need for further adjustment of diuretic therapy. Check follow-up comprehensive metabolic panel. Hypertension : Previously had labile hypertension. Blood pressure in clinic is within good control and reports improved home BP readings. Continue carvedilol 25 mg b.i.d., hydralazine 25 mg b.i.d., HCTZ 25 mg daily and losartan 100 mg daily. Low-sodium diet discussed at length and ambulatory blood pressure monitoring reinforced. Mixed hyperlipidemia: Lipid panel is suboptimal. Recently not taking atorvastatin and ezetimibe which she has been taking for 3 months. Obtain follow-up lipid panel to consider need for PCSK9 inhibitor. Type 2 diabetes: Managed per PCP. Recently initiated on Ozempic and discussed cardiovascular benefits. Check follow-up HGB A1c. Morbid obesity: Diet/ exercise encouraged for weight management. [email or web address] Not available 08/25/2024 16:44:08 09/09/2024 09/09/2024 Coronary artery disease with atypical chest pain: Obtain pharmacologic nuclear stress test for ischemic risk stratification with known moderate medically manage CAD. Continue aspirin 81 mg daily. Nitroglycerin usage and ER precautions again reviewed. Hypertension: Labile blood pressures at this juncture. Low-sodium diet and encouraged bringing home blood pressure log to the next office visit to consider further adjustment of pharmacotherapy. In light of episodes of postural dizziness we will not up titrate antihypertensive therapy at this juncture based on current office readings. Acute on chronic exacerbation of heart failure with preserved ejection fraction: Reviewed regarding low-sodium diet, weight management, optimization of CHACHA, blood pressure with regular heart failure precautions. Initiate Jardiance 10 mg daily. Side effect profile reviewed. Obtain follow-up basic metabolic panel in 2 weeks. Plan follow-up in 4 weeks with the above-mentioned testing. [email or web address] Not available 09/09/2024 16:15:54 Plan of Treatment Reminders Order Date Submit Date Provider Last Modified By Organization Details Last Modified Time Details Appointments ANY 2024 02:45P M KIKI WERNER Not available Not available Not available ANY 2024 02:45P M Richa Diaz MD Not available Not available Not available Lab fecal occult blood, immunoa ssay, stool 2024 025 [email or web address] [facility], [address] [facility] [address], [place], [address], 12/10/2024 15:09:10 BMP, serum or plasma 2024 025 [email or web address] [facility], [address] [facility] [address], [address], 11/24/2024 11:52:58 TSH, serum or plasma 2024 025 [email or web address] [facility], [address] [facility] [address], [place], [address], 09/15/2024 12:42:59 lipid panel, serum 2024 025 MIHIR [facility], [address] [facility], [facility], [place], [address], 08/27/2024 11:12:07 CMP, serum or plasma 2024 025 MIHIR [facility], [address] [facility], [place], [address], 08/27/2024 11:12:08 HbA1c (hemogl obin A1c), blood 2024 025 MIHIR [facility], [address] [facility], [address], [place], [address], 08/27/2024 11:12:10 pro BNP (pro B-type natriur etic peptide ), serum or plasma 2024 025 MIHIR [facility], [address] [facility], [address], [place], [address], 08/27/2024 11:12:05 Referral diabeti c ophthal mology referra l 2024 025 [email or web address] Gonzalez, [address], [place], [address], 12/11/2024 08:36:05 endocri nology referra l 2024 025 [facility] Andre Lozano DO, [address], [address], [place], [address], 12/01/2024 11:01:57 Procedures None recorde d. Surgeries None recorde d. Imaging MAMMO, screeni ng, bilater al 2024 025 [facility] ([facility]iology [facility]), [address] [facility], [place], [address], 12/03/2024 11:29:20 bone density 2024 025 [facility] ([facility]iology [facility]), [address], [place], [address], 12/10/2024 10:51:12 SPECT, myocard ial perfusi on, multipl e 2024 025 [facility], [address], [address], [place], [address], 10/01/2024 07:38:40 electro cardiog rosie 2024 025 [email or web address] In-Office Order, Internal Use Only DO Not Attach Compendium DO Not Attach Compendium, Do Not Delete/merge, [id number] 08/25/2024 15:20:33 US, echocar diogram , transth oracic, complet e, w/ color flow 2024 025 [facility], [address], [address], [place], [address], 09/03/2024 17:53:17 Medication Orders Ozempic 0.25 mg or 0.5 mg (2 mg/3 mL) subcuta neous pen injecto r 2024 025 [facility] [place], [address], 12/08/2024 15:00:44 Lasix 20 mg tablet 2024 025 [facility], [address] [place], [address], 10/07/2024 15:50:04 Jardian ce 10 mg tablet 2024 025 [facility] [address], [address] [place], [address], 09/09/2024 15:56:48 nitrogl ycerin 0.4 mg subling ual tablet 2024 025 [facility] [address], [address] [place], [address], 08/25/2024 15:20:42 aspirin 81 mg tablet, delayed release 2024 025 [facility] [address], [address] [place], [address], 08/25/2024 15:21:41 Patient TargetsNo targets recorded. Patient Instructions Encounter Date Encounter Id Patient Instructions Last Modified By Organization Details Last Modified Time 08/25/2024 [id number] A healthy lifestyle: care instructions Not available 08/25/2024 16:43:19 10/07/2024 [id number] A healthy lifestyle: care instructions [email or web address] Not available 10/07/2024 15:59:53 11/03/2024 [id number] tetanus and diphtheria booster: care instructions [email or web address] Not available 11/03/2024 16:18:24 Plan of care has been discussed with patient including expected therapeutic benefits and potential side effects of prescribed medication and treatments. Patient verbalizes understanding and is in agreement with the plan of care. Patient was instructed to keep all scheduled appointments and contact the clinic for any additional problems. Health Maintenance: - CRC screening (45-75):Due at 45 years. colofit ordered - Osteoporosis screening: Due at 65. - Lipid screening (>45 unless additional risk factors): 08/26/24 - HIV : declined - HepC: declined -Eye exam: referral placed -Dental Exam: endentulous - Immunizations: - Influenza: 05/05/24 - Prevnar 20: 05/04/22 - Tdap/Td ([id number]): 10/27/13 - Zoster (>60):Due at 60. - COVID-19: 09/14/21, 12/05/20, 11/14/20, Declined booster -Labs ordered this visit: n/a Females: Pap smear: n/a Mammogram: ordered DEXA: ordered [email or web address] Not available 11/20/2024 16:08:33 12/08/2024 [id number] A healthy lifestyle: care instructions [email or web address] Not available 12/08/2024 15:00:40 Reason for Referral Diabetic Ophthalmology Refer ral for Type 2 diabetes mellitus Referring Physician: [facility], Encounter Date: 11/03/2024 Endocrinology Referral for H ypothyroidism Referring Physician: [facility], Encounter Date: 11/03/2024 Results Created Date Observation Date Name Description Value Unit Range Abnormal Flag Note LastModifiedBy Organization Detail LastModifiedTime 08/26/1908/27/2024 NT-HI OBNP nt-probnp 314 pg/mL 0-301 above high normal The follo wing cut-p oints have been sugge sted for the use of proBN P for the diagn ostic evalu ation of heart failu re (HF) in patie nts with acute dyspn ea: Modal ity Age Optim al Cut (year s) Point ----- ----- ----- ----- ----- ----- ----- ----- ----- ----- ---- Diagn osis (rule in HF) <50 450 pg/mL 50 - 75 900 pg/mL >75 1800 pg/mL Exclu rodrigue (rule out HF) Age indep enden t 300 pg/mL Not Available [facility] ([facility]) [address] [place], [address], 08/27/2024 11:12:05 08/26/19 25 08/27/2024 LIPID PROFI LE cholesterol, total 99 mg/dL 100-19 9 below low normal Not Available [facility] ([facility]) [address] [place], [address], 08/27/2024 11:12:07 08/26/19 25 08/27/2024 LIPID PROFI LE triglyceride s 158 mg/dL 0-149 above high normal Not Available [facility] ([facility]) [address] [place], [address], 08/27/2024 11:12:07 08/26/19 25 08/27/2024 LIPID PROFI LE HDL cholesterol 37 mg/dL >39 below low normal Not Available [facility] ([facility]) [address] [place], [address], 08/27/2024 11:12:07 08/26/19 25 08/27/2024 LIPID PROFI LE VLDL cholesterol constance 27 mg/dL 5-40 Not Available [facility] ([facility]) [address] [facility], [place], [address], 08/27/2024 11:12:07 08/26/19 25 08/27/2024 LIPID PROFI LE LDL chol calc ([facility]) 35 mg/dL 0-99 Not Available [facility] ([facility]) [address] [place], [address], 08/27/2024 11:12:07 08/26/19 25 08/27/2024 COMP. METAB OLIC PANEL (14) glucose 103 mg/dL 70-99 above high normal Not Available [facility] ([facility]) [address] [place], [address], 08/27/2024 11:12:08 08/26/19 25 08/27/2024 COMP. METAB OLIC PANEL (14) BUN 20 mg/dL 8-27 Not Available [facility] ([facility]) [address] [place], [address], 08/27/2024 11:12:08 08/26/19 25 08/27/2024 COMP. METAB OLIC PANEL (14) creatinine 0.92 mg/dL 0.57-1 .00 Not Available [facility] ([facility]) [address] [place], [address], 08/27/2024 11:12:08 08/26/19 25 08/27/2024 COMP. METAB OLIC PANEL (14) eGFR 67 mL/mi n/1.7 3 >59 Not Available [facility] ([facility]) [address] [place], [address], 08/27/2024 11:12:08 08/26/19 25 08/27/2024 COMP. METAB OLIC PANEL (14) BUN/creatini ne ratio 22 12-28 Not Available [facility] ([facility]) [address] [place], [address], 08/27/2024 11:12:08 08/26/19 25 08/27/2024 COMP. METAB OLIC PANEL (14) sodium 144 mmol/ L 134-14 4 Not Available [facility] ([facility]) [address] [facility] [place], [address], 08/27/2024 11:12:08 08/26/19 25 08/27/2024 COMP. METAB OLIC PANEL (14) potassium 4.1 mmol/ L 3.5-5. 2 Not Available [facility] ([facility]) [address] [facility] [place], [address], 08/27/2024 11:12:08 08/26/19 25 08/27/2024 COMP. METAB OLIC PANEL (14) chloride 99 mmol/ L 96-106 Not Available [facility] ([facility]) [address] [facility] [place], [address], 08/27/2024 11:12:08 08/26/19 25 08/27/2024 COMP. METAB OLIC PANEL (14) carbon dioxide, total 31 mmol/ L 20-29 above high normal Not Available [facility] ([facility]) [address] [facility] [place], [address], 08/27/2024 11:12:08 08/26/19 25 08/27/2024 COMP. METAB OLIC PANEL (14) calcium 10.3 mg/dL 8.7-10 .3 Not Available [facility] ([facility]) [address] [facility] [place], [address], 08/27/2024 11:12:08 08/26/19 25 08/27/2024 COMP. METAB OLIC PANEL (14) protein, total 7.4 g/dL 6.0-8. 5 Not Available [facility] ([facility]) [address] [facility] [place], [address], 08/27/2024 11:12:08 08/26/19 25 08/27/2024 COMP. METAB OLIC PANEL (14) albumin 4.4 g/dL 3.8-4. 8 Not Available [facility] ([facility]) [address] [place], [address], 08/27/2024 11:12:08 08/26/19 25 08/27/2024 COMP. METAB OLIC PANEL (14) globulin, total 3.0 g/dL 1.5-4. 5 Not Available [facility] ([facility]) [address] [place], [address], 08/27/2024 11:12:08 08/26/19 25 08/27/2024 COMP. METAB OLIC PANEL (14) bilirubin, total 0.4 mg/dL 0.0-1. 2 Not Available [facility] ([facility]) [address] [place], [address], 08/27/2024 11:12:08 08/26/19 25 08/27/2024 COMP. METAB OLIC PANEL (14) alkaline phosphatase 65 IU/L 44-121 Not Available [facility] ([facility]) [address] [place], [address], 08/27/2024 11:12:08 08/26/19 25 08/27/2024 COMP. METAB OLIC PANEL (14) AST (SGOT) 24 IU/L 0-40 Not Available [facility] ([facility]) [address] [place], [address], 08/27/2024 11:12:08 08/26/19 25 08/27/2024 COMP. METAB OLIC PANEL (14) ALT (SGPT) 31 IU/L 0-32 Not Available [facility] ([facility]) [address] [place], [address], 08/27/2024 11:12:08 08/26/19 25 08/27/2024 HEMOG LOBIN A1C hemoglobin A1C 6.6 % 4.8-5. 6 above high normal Predi abete s: 5.7 - 6.4 Diabe yolanda: >6.4 Glyce cali contr ol for adult s with diabe yolanda: <7.0 Not Available [facility] ([facility]) [address] [facility], [place], [address], 08/27/2024 11:12:10 08/26/19 25 08/27/2024 TSH TSH 1.580 uIU/m L 0.450- 4.500 Not Available [facility] ([facility]) [address] [facility], [place], [address], 08/27/2024 12:37:32 08/25/19 25 08/25/2024 elect rocshalonda diogr am No observ ation record ed. ALVORD In-Office Order Internal Use Only DO Not Attach Compendium DO Not Attach Compendium, Do Not Delete/merge, [id number] 08/25/2024 15:40:59 08/25/19 elect rocar diogr am No observ ation record ed. [email or web address] Not Available 2024 16:49:42 09/03/19 25 09/02/2024 US, echoc ardio gram, trans thora cic, compl ete, w/ color flow No observ ation record ed. [facility] [address] [place], [address], 09/04/2024 10:46:57 10/01/19 25 09/29/2024 SPECT , myoca rdial perfu rodrigue, multi ple No observ ation record ed. [facility] [address], [address], 10/01/2024 07:38:41 10/01/19 25 09/29/2024 SPECT , myoca rdial perfu rodrigue, multi ple No observ ation record ed. [facility] [address] [facility] [address], [place], [address], 10/17/2024 15:05:35 10/01/19 25 09/29/2024 SPECT , myoca rdial perfu rodrigue, multi ple No observ ation record ed. [facility] [address] [facility] [address], [place], [address], 10/17/2024 15:05:18 10/01/19 25 09/29/2024 SPECT , myoca rdial perfu rodrigue, multi ple No observ ation record ed. [facility] [address] [facility] [address], [place], [address], 10/01/2024 07:38:50 Result Notes None recorded. Problems Name Problem SNOMED Code Status Onset Date Resolution Date Notes Provider Name and Address Organization Details Recorded Time Hypothyr oidism 43767884 Active 2017 thyroid us -diffuse chronic thyroidit is Sandeep Christensen MD Attn: Suma yo,[address] [place], [address], [place] [facility] 3 09:04:40 Cholecys tectomy Active 2020 lap jesus 02/2021 Sandeep Christensen MD Attn: Suma yo,[address] [place], [address], [place] [facility] 1 13:15:19 Obstruct carlos sleep apnea syndrome 45154396 Active 2020 on cpap Sandeep Christensen MD Attn: Suma yo,[address] [place], [address], [place] [facility] 2 11:22:19 Steatoti c liver disease 080278894 Active 2021 Sandeep Christensen MD Attn: Suma oy,[address] [place], [address], [place] [facility] 2 11:53:41 Edema of lower extremit y 085258512 Active Sandeep Christensen MD Attn: Suma yo,[address] [place], [address] [facility] 3 14:58:38 Diabetes mellitus 81260749 Completed 04/20/2017 Sandeep Christensen MD Attn: Wilfridevan yo,[address] [facility], [place], [address], [place] [facility] 7 11:42:06 [facility] l hyperten rodrigue 77681914 Active Sandeep Christensen MD Attn: Suma srinath,[address] [facility], [place], [address], [place] [facility] 2 11:22:19 Type 2 diabetes mellitus 88264545 Active Sandeep Christensen MD Attn: Suma srinath,[address] [place], [address] [facility] 2 11:22:19 Morbid obesity 312234275 Active pt did not go for sleep study Sandeep Christensen MD Attn: Suma yo,[address] [facility], [place], [address], [place] [facility] 2 11:22:19 Chronic depressi on 556685962 Active Sandeep Christensen MD Attn: Suma srinath,[address] [place], [address] [facility] 2 11:22:19 Hyperlip idemia 98767100 Active Sandeep Christensen MD Attn: Suma yo,[address] [place], [address] [facility] 2 11:22:19 Osteoart hritis of knee 648097628 Active Sandeep Christensen MD Attn: Suma yo,[address] [place], [address], [place] [facility] 2 11:22:19 Notes:chest pain- nuclear st ress test 03/2021-seeing cardio Problem Notes Documentation Provider Name and Address Organization Details Recorded Time Manager Merchandise Consult Note : [facility] [address] [facility] [address]BDL[place], Gjulsha (id #[id number], : 1955) [facility] [address] [place] [address] Encounter Summary - Progress Note Date Printed: 08/25/2024 Documents sent via fax will include the followingmessage: This fax may contain sensitive and confidential personal health information that is being sent for the sole use of the intended recipient. Unintended recipients are directed to securely destroy any materials received. You are hereby notified that the unauthorized disclosure or other unlawful use of this fax or any personal health information is prohibited. To the extent patient information contained in this fax is subject to 42 CFR Part 2, this regulation prohibits unauthorized disclosure of these records. If you received this fax in error, please visit [email or web address] to notify the sender and confirm that the information will be destroyed. If you do not have internet access, please call to notify the sender and confirm that the information will be destroyed. Thank you for your attention and cooperation. [ID:[id number]] Patient Naresh Dempsey (69yo, F) #[id number] Patient Demographics: Address [address] [place] [id number] Encounter Notes: Encounter Reason/Date SHOP MECHANIC HELPER -htn, hld. New sx - lethargic and chest pains ongoing x 2 weeks. 08/25/2024 - 01:30PM - [facility] History of Present IllnessI had the pleasure of seeing Ms. Dempsey as a new consultation from Dr. Christensen for recommendations regarding evaluation and management of CAD. Pleasant 75-year-old accompanied by her daughter who is acting as spanish interpreter/translator as patient is from [place] and does not speak [place]. history of mild medically managed CAD, type 2 diabetes, hypertension, mixed hyperlipidemia, morbid obesity, CHACHA, diastolic dysfunction, hypothyroidism Interval history:Has been noticing episodes of chest pain which are substernal, pressure-like, nonexertional. Noticing NYHA class 2 dyspnea. Denies palpitations, presyncope or syncope. Has recently started Ozempic per PCP. Labs:April 2024:TSH 3.19, HGB A1c 6.3, hemoglobin 13.0, WBC 7.2, platelet 277, sodium 143, potassium 4.4, chloride 100, CO2 37, BUN 28, creatinine 1.13, EGFR 52, AST 23, ALT 22, LDL 168, VLDL 39, HDL 45, total cholesterol 225, TG 193 Cardiac diagnostics:Twelve lead EKG008/25/2024: Sinus rhythm, right bundle-branch block, left anterior fascicular block Coronary CTA, [facility], July 2022: OM1, mild focal 24-49% stenosis with calcium score 25 Lexiscan nuclear stress test, 2020: Small partial reversible lateral wall perfusion defect Transthoracic echocardiogram, April 2021:LVEF 65%, mild concentric LVH with E/A reversal consistent with grade 1 diastolic dysfunction, normal left atrial size, trace aortic regurgitation Review of SystemsROS as noted in the HPI Vitals Ht: 5 ft 2 in08/25/2024 01:42 pm Wt: 249 lbs08/25/2024 01:42 pm BMI: 45. 01:42 pm BP: 132/66008/25/2024 01:45 pm Pulse: 78 bpm08/25/2024 01:46 pm RR: 1802 01:42 pm O2Sat: 97%08/25/2024 01:46 pm Results/Interpretations ELECTROCARDIOGRAM Results: -Rate & Rhythm:-QRS:-HI Interval:-QRS Duration:-QT Interval: Physical ExamConstitutional:General Appearance: well-nourished and well-developed. Level of Distress: comfortable. Psychiatric:Mental Status: alert. Orientation: oriented to time, place, and person. Eyes:Lids and Conjunctivae: no xanthelasma or arcus senilis. ENMT:Lips, Teeth, and Gums: normal dentition. Neck:Neck: supple. Carotid Arteries: no bruits. Jugular Veins: normal jugular venous pressure. Lungs:Auscultation: no wheezing or rales and clear. Cardiovascular:Rate And Rhythm: regular. Heart Sounds: no rub or gallop and normal S1 and physiologically split S2. Abdomen:Inspection and Palpation: soft. Liver: non tender or no hepatomegaly. Musculoskeletal:Inspection: no pedal edema. Neurologic:Neurological: no recent neurological change. Skin:Nails: no clubbing. Assessment and PlanCoronary artery disease with atypical chest pain:Prescribe p.r.n. nitroglycerin. Continue aspirin 81 mg daily. Obtain echocardiogram and we will follow-up closely after echocardiogram to discuss further ischemia evaluation. ER precautions by EMS in the interim discussed. Diastolic dysfunction:Clinically appears euvolemic. Obtain proBNP to assess need for further adjustment of diuretic therapy. Check follow-up comprehensive metabolic panel. Hypertension: Previously had labile hypertension. Blood pressure in clinic is within good control and reports improved home BP readings. Continue carvedilol 25 mg b.i.d., hydralazine 25 mg b.i.d., HCTZ 25 mg daily and losartan 100 mg daily. Low-sodium diet discussed at length and ambulatory blood pressure monitoring reinforced. Mixed hyperlipidemia:Lipid panel is suboptimal. Recently not taking atorvastatin and ezetimibe which she has been taking for 3 months. Obtain follow-up lipid panel to consider need for PCSK9 inhibitor. Type 2 diabetes:Managed per PCP. Recently initiated on Ozempic and discussed cardiovascular benefits. Check follow-up HGB A1c. Morbid obesity:Diet/ exercise encouraged for weight management. 1. Chest painR07.9: Chest pain, unspecified ELECTROCARDIOGRAM 2. Coronary xmtkkiahzdoskexlQ87.10: Atherosclerotic heart disease of [place] coronary artery without angina pectoris nitroglycerin 0.4 mg sublingual tablet - Place 1 tablet(s) as needed by sublingual route, for chest pain. MAxium 3 in 10 minutes. Qty: (30) tablet Refills: 0 Pharmacy: [facility] 256 THYROID STIMULATING HORMONE - ESOTERIX LIPID PROFILE COMP. METABOLIC PANEL [phone] HEMOGLOBIN [id number] aspirin 81 mg tablet,delayed release - Take 1 tablet(s) every day by oral route. Qty: (90) tablet Refills: 1 Pharmacy: [facility] 256 NT-PROBNP 3. Dyspnea on hlkbfkneM52.09: Other forms of dyspnea US, ECHOCARDIOGRAM, TRANSTHORACIC, COMPLETE, W/ COLOR FLOWPlace of service: [facility] Procedure code: 54373 Authorization: [place] NOTREQUIRED Not Required for 78471Lsokvfbmgyons: [place] [address] 4. Essential vuduscpilqbuP81: Essential (primary) hypertension 5. Pure lhiluwgvejskfmjrogggZ74.00: Pure hypercholesterolemia, unspecified 6. Morbid ecjdlzpP56.01: Morbid (severe) obesity due to excess calories A HEALTHY LIFESTYLE: CARE INSTRUCTIONS ELECTROCARDIOGRAM Results: -Rate & Rhythm:-QRS:-HI Interval:-QRS Duration:-QT Interval: Return to Office Richa Diaz MD for ANY 15 at [facility] on 09/09/2024 at 02:30 PM KIKI WERNER for ANY 15 at [facility] ([facility]) on 09/10/2024 at 03:00 PM Patient Medical History: Allergies List Reviewed Allergies NKDA Medications Reviewed Medications NameDate Source aspirin 81 mg tablet,delayed releaseTake 1 tablet(s) every day by oral route.08/25/24 prescribed Richa Diaz MD atorvastatin 80 mg tabletTAKE 1 TABLET BY MOUTH ONCE DAILY05/11/24 filled surescripts carvediloL 25 mg tabletTAKE 1 TABLET BY MOUTH TWICE DAILY06/26/24 filled surescripts ezetimibe 10 mg tabletTAKE 1 TABLET BY MOUTH ONCE DAILY05/30/24 filled surescripts hydrALAZINE 25 mg tabletTAKE 1 TABLET BY MOUTH TWICE DAILY08/21/24 filled surescripts hydroCHLOROthiazide 25 mg tabletTAKE 1 TABLET BY MOUTH ONCE DAILY07/03/24 filled surescripts levothyroxine 50 mcg tabletTake 1 tablet by mouth once daily08/25/24 renewed Sandeep Christensen MD losartan 100 mg tabletTAKE 1 TABLET BY MOUTH ONCE DAILY05/18/24 filled surescripts meloxicam 15 mg tabletTAKE 1 TABLET BY MOUTH ONCE DAILY06/02/24 filled surescripts metFORMIN 1,000 mg tabletTAKE 1 TABLET BY MOUTH TWICE DAILY08/23/24 filled surescripts nitroglycerin 0.4 mg sublingual tabletPlace 1 tablet(s) as needed by sublingual route, for chest pain. MAxium 3 in 10 minutes.08/25/24 prescribed Richa Diaz MD nystatin 100,000 unit/gram topical creamAPPLY CREAM TOPICALLY TO AFFECTED AREA THREE TIMES DAILY. WASH AND DRY BEFORE APPLYING.02/05/24 filled surescripts oxyBUTYnin chloride 5 mg tabletTAKE 1 TABLET BY MOUTH TWICE DAILY03/26/24 filled surescripts Ozempic 0.25 mg or 0.5 mg (2 mg/1.5 mL) subcutaneous pen injectorInject by subcutaneous route.07/10/24 auth requested Sandeep Christensen MD potassium chloride ER 20 mEq tablet,extended release(part/cryst)TAKE 1 TABLET BY MOUTH ONCE DAILY Internal Note:not currently pxclin43/23/24 filled surescripts sertraline 100 mg tabletTAKE 1 TABLET BY MOUTH ONCE DAILY08/23/24 filled surescripts otc hawthorn berries coQ10, aspirin, omeprazole Family HistoryFamily History not reviewed (last reviewed 08/21/2024) Mother - Diabetes mellitus - Essential hypertension Sister - Diabetes mellitus - Essential hypertension Son - Myocardial infarction ( age: 41) Past Medical HistoryPast Medical History not reviewed (last reviewed 08/21/2024) Depression:Y Diabetes:Y High Blood Pressure:Y High Cholesterol:Y Vaccine HistoryReviewed Vaccines Vaccine Type Date Amt. Route Site [facility] Lot # Mfr. Exp. Date VIS VIS Given [employer] COVID-19 COVID-19, mRNA, LNP-S, PF, 30 mcg/0.3 mL dose ([employer]) 09/14/21 [id number] [employer] COVID-19, mRNA, LNP-S, PF, 30 mcg/0.3 mL dose ([employer]) 12/05/20 [id number] [employer] [facility] COVID-19, mRNA, LNP-S, PF, 30 mcg/0.3 mL dose ([employer]) 11/14/20 [id number] [employer] [facility] Diphtheria, Tetanus, Pertussis Tdap 10/27/13 Influenza influenza, high dose seasonal 05/05/24 0.5 mL Intramuscular Deltoid, Right [id number] [employer] 01/19/25 Inactivated Influenza 02/25/2021 05/05/24 Alyssia Alcocer MA influenza, high-dose, quadrivalent 06/11/23 0.7 mL Intramuscular Deltoid, Right [id number] [employer] 06/11/23 Inactivated Influenza 02/25/2021 06/11/23 Alyssia Alcocer MA influenza, injectable, quadrivalent 04/16/19 0.5 mL Intramuscular Deltoid, Right [id number] [employer] 01/20/20 Inactivated Influenza 03/06/2019 04/16/19 OLY Mike influenza, injectable, quadrivalent 06/26/18 0.5 mL Intramuscular Deltoid, Right [id number] [employer] 01/19/19 TIV/QIV 02/26/2015 06/26/18 Alyssiaelder Alcocer influenza, injectable, quadrivalent 04/20/17 0.5 mL Intramuscular Deltoid, Right [id number] [employer] 01/19/18 TIV/QIV 02/26/2015 04/20/17 Clair Morgan RN, Registered Nurse influenza, injectable, quadrivalent 04/18/16 0.5 mL Intramuscular Deltoid, Left [id number] [employer] 01/19/17 TIV/QIV 02/26/2015 04/18/16 Alyssia Alcocer influenza, injectable, quadrivalent 06/14/15 0.5 mL Intramuscular Deltoid, Left [id number] [employer] 01/20/16 TIV/QIV 02/26/2015 06/14/15 Krys Green MA influenza, high dose seasonal 06/01/14 0.5 mL Intramuscular Deltoid, Left [id number] [employer] 01/19/15 Pneumococcal Pneumococcal conjugate PCV20, polysaccharide [id number] conjugate, adjuvant, PF 05/04/22 0.5 mL Intramuscular Deltoid, Left [id number] [employer] 03/21/23 Pneumococcal Conjugate 08/26/21 05/04/22 Alyssia Alcocer MA pneumococcal polysaccharide PPV23 09/24/14 0.5 mL Injection Deltoid, Left [id number] [employer] 12/30/15 PPSV23 04/27/2009 09/24/14 Liv Foster pneumococcal polysaccharide PPV23 09/24/14 Intramuscular Deltoid, Left [id number] [employer] 12/30/15 pt declined flu . pt is covid vaccinated- to pt to bring card + Electronically Signed by: RICHA DIAZ MD [place], RMA null, [facility] 08/26/2024 09:47:38 Procedures Surgical History Date Name Laterality Status Provider Name and Address Organization Details Recorded Time 02/15/20 22 Cerumen removal without microscope completed Carlos Alberto Pineda [place] - [facility] 02/14/2022 16:08:11 02/01/20 22 Cerumen removal without microscope completed Carlos Alberto Pineda [place] - [facility] 01/31/2022 16:09:21 02/21/20 21 Cholecystectomy completed Belle Whatley [facility] 06/24/2021 15:52:29 Imaging Results Imaging Date Name Status LastModified by Organization Details LastModified Time 08/25/2024 electrocardiogram completed MIHIR In-Offi ce Order Internal Use Only DO Not Attach Compendium DO Not Attach Compendium, Do Not Delete/merge, [id number] 08/25/2024 15:40:59 08/25/2024 electrocardiogram completed Informa tion not available 08/25/2024 16:49:42 09/02/2024 US, echocardiogram, transthoracic, complete, w/ color flow completed [facility] [address] [place], [address], 09/04/2024 10:46:57 09/29/2024 SPECT, myocardial perfusion, multiple completed [facility] [address], [place], [address], 10/01/2024 07:38:41 09/29/2024 SPECT, myocardial perfusion, multiple completed [facility] [address], [place], [address], 10/17/2024 15:05:35 09/29/2024 SPECT, myocardial perfusion, multiple completed [facility] [address], [place], [address], 10/17/2024 15:05:18 09/29/2024 SPECT, myocardial perfusion, multiple completed [facility] [address] [facility] [address], [place], [address], 10/01/2024 07:38:50 Procedure Notes None recorded. Medical Equipment None Reported. Allergies No known drug allergies Medications Name Sig Start Date Stop Date Status Note LastModified by Organization Details LastModified Time Prescript ion - Prior Authoriza tion Request active Not Available Not Available Not Available losartan 50 mg tablet TAKE 1 TABLET BY MOUTH ONCE DAILY 02/03 completed Not Available Not Available Not Available amoxicill in 500 mg capsule TAKE 1 CAPSULE BY MOUTH THREE TIMES DAILY UNTIL GONE 02/03 completed Not Available Not Available Not Available atorvasta tin 80 mg tablet Take 1 tablet(s ) every day by oral route. 2024 active Not Available Not Available Not Avai lable carvedilo l 25 mg tablet TAKE 1 TABLET BY MOUTH TWICE DAILY active Not Available Not Available No t Available carvedilo l 6.25 mg tablet TAKE 1 TABLET BY MOUTH TWICE DAILY 01/01 completed Not Available Not Available Not Available carvedilo l 12.5 mg tablet Take 1/2 (one-rivera f) tablet by mouth twice daily 12/28 completed increase d Not Available Not Available Not Available trazodone 50 mg tablet TAKE 1 TABLET BY MOUTH ONCE DAILY AT BEDTIME 08/10 completed not taking Not Available Not Available Not Available tizanidin e 4 mg tablet TAKE 1 TABLET BY MOUTH ONCE DAILY 11/17 completed Not Taking Not Available Not Available Not Available citalopra m 10 mg tablet Take 1 tablet by mouth once daily 02/25 completed Not Available Not Available Not Available hydrocodo ne 5 mg-acetam inophen 325 mg tablet TAKE 1 TABLET BY MOUTH EVERY 6 HOURS NEEDED FOR PAIN 05/05 completed not taking Not Available Not Available Not Available meloxicam 15 mg tablet TAKE 1 TABLET BY MOUTH ONCE DAILY active Not Available Not Available No t Available famotidin e 40 mg tablet Take 1 tablet every day by oral route. 08/10 completed Not taking Not Available Not Available Not Available sertralin e 100 mg tablet TAKE 1 TABLET BY MOUTH ONCE DAILY active Not Available Not Available No t Available metformin 850 mg tablet TAKE ONE TABLET BY MOUTH TWICE DAILY 07/27 completed Not Available Not Available Not Available hydralazi ne 25 mg tablet TAKE 1 TABLET BY MOUTH TWICE DAILY active Not Available Not Available No t Available clopidogr el 75 mg tablet TAKE 1 TABLET BY MOUTH ONCE DAILY 08/21 completed not taking Not Available Not Available Not Available amlodipin e 5 mg tablet TAKE 1 TABLET BY MOUTH ONCE DAILY 02/25 completed not taking Not Available Not Available Not Available aspirin 81 mg tablet,de layed release Take 1 tablet every day by oral route. 2024 active Not Available Not Available Not Avai lable triamcino lone acetonide 0.1 % topical cream APPLY A THIN LAYER TO THE AFFECTED AREA(S) BY TOPICAL ROUTE 2 TIMES PER DAY 06/26 completed Not Available Not Available Not Available spironola ctone 25 mg tablet TAKE ONE TABLET BY MOUTH DAILY 02/14 completed pt to hold Not Available Not Available Not Available levothyro xine 25 mcg tablet Take 1 tablet by mouth once daily 12/10 completed Not Available Not Available Not Available isosorbid e mononitra te ER 60 mg tablet,ex tended release 24 hr TAKE 1 TABLET BY MOUTH ONCE DAILY 05/05 completed not taking Not Available Not Available Not Available propranol ol 40 mg tablet TAKE ONE TABLET BY MOUTH TWICE DAILY 11/09 completed Not Available Not Available Not Available citalopra m 20 mg tablet Take 1 tablet every day by oral route. 02/25 completed Not Available Not Available Not Available potassium chloride ER 20 mEq tablet,ex tended release(p art/cryst ) TAKE 1 TABLET BY MOUTH ONCE DAILY active not currentl y taking Not Available Not Available Not Available famotidin e 20 mg tablet Take 1 tablet twice a day by oral route. 11/17 completed Not taking Not Available Not Available Not Available levothyro xine 50 mcg tablet TAKE 1 TABLET BY MOUTH ONCE DAILY active Not Available Not Available No t Available simvastat in 20 mg tablet TAKE 1 TABLET BY MOUTH AT BEDTIME 12/28 completed stopped Not Available Not Available Not Available metformin 1,000 mg tablet Take 1 tablet by mouth twice daily 2024 active Not Available Not Available Not Avai lable nystatin 100,000 unit/gram topical cream APPLY CREAM TOPICALL Y TO AFFECTED AREA THREE TIMES DAILY. WASH AND DRY BEFORE APPLYING . active Not Available Not Available No t Available ranitidin e 150 mg tablet Take 1 tablet twice a day by oral route. 04/16 completed Not Available Not Available Not Available nitroglyc michael 0.4 mg sublingua l tablet DISSOLVE ONE TABLET UNDER THE TONGUE EVERY 5 MINUTES NEEDED FOR CHEST PAIN. DO NOT EXCEED A TOTAL OF 3 DOSES IN 15 MINUTES active Not Available Not Available No t Available omeprazol e 20 mg capsule,d elayed release TAKE 1 CAPSULE BY MOUTH ONCE DAILY 08/10 completed not taking Not Available Not Available Not Available hydralazi ne 50 mg tablet TAKE 1 TABLET BY MOUTH TWICE DAILY 05/05 completed not taking Not Available Not Available Not Available hydrochlo rothiazid e 25 mg tablet TAKE 1 TABLET BY MOUTH ONCE DAILY 10/07 completed Not Available Not Available Not Available furosemid e 20 mg tablet TAKE 1 TABLET BY MOUTH ONCE DAILY active Not Available Not Available No t Available ibuprofen 600 mg tablet TAKE 1 TABLET BY MOUTH EVERY 6 HOURS NEEDED FOR PAIN 10/20 completed Not Available Not Available Not Available oxybutyni n chloride 5 mg tablet TAKE 1 TABLET BY MOUTH TWICE DAILY active Not Available Not Available No t Available lisinopri l 40 mg tablet Take 1 tablet by mouth once daily 12/28 completed stopped Not Available Not Available Not Available losartan 100 mg tablet TAKE 1 TABLET BY MOUTH ONCE DAILY active Not Available Not Available No t Available sertralin e 50 mg tablet Take 1 tablet every day by oral route for 30 days. 08/19 completed Not Available Not Available Not Available amoxicill in 875 mg-potass ium clavulana te 125 mg tablet TAKE 1 TABLET BY MOUTH EVERY 12 HOURS 04/11 completed complete d Not Available Not Available Not Available ezetimibe 10 mg tablet TAKE 1 TABLET BY MOUTH ONCE DAILY active Not Available Not Available No t Available Jardiance 10 mg tablet Take 1 tablet by mouth once daily active Not Available Not Available No t Available Ozempic 0.25 mg or 0.5 mg (2 mg/1.5 mL) subcutane ous pen injector Inject 0.25 mg every week by subcutan eous route as directed for 30 days. 2024 active Not Available Not Available Not Avai lable Ozempic 0.25 mg or 0.5 mg (2 mg/3 mL) subcutane ous pen injector Inject 0.5 mg every week by subcutan eous route. 2024 active Not Available Not Available Not Avai lable Vitals Date Recorded Body height Body mass index (BMI) Body weight Respiratory rate Heart rate Oxygen saturation Oxygen saturation in Arterial blood by Pulse oximetry Systolic blood pressure Diastolic blood pressure Provider Name and Address Organization Details Last Updated DateTime 5 157.48 cm 45.5 kg/m2 781193. 5 g 18 /min 78 /min 97 % 97 % 132 mm[Hg] 66 mm[Hg] Soni Kumar LPN [facility] 5 14:45:50 Date Recorded Body height Body mass index (BMI) Body weight Heart rate Oxygen saturation Oxygen saturation in Arterial blood by Pulse oximetry Systolic blood pressure Diastolic blood pressure Provider Name and Address Organization Details Last Updated DateTime 5 157.48 cm 45.2 kg/m2 751965. 32 g 84 /min 96 % 96 % 148 mm[Hg] 72 mm[Hg] Daya Prieto RN [facility] 5 15:42:34 Date Recorded Body height Body mass index (BMI) Body weight Respiratory rate Heart rate Oxygen saturation Oxygen saturation in Arterial blood by Pulse oximetry Systolic blood pressure Diastolic blood pressure Provider Name and Address Organization Details Last Updated DateTime 5 157.48 cm 45.4 kg/m2 694710. 91 g 18 /min 81 /min 96 % 96 % 116 mm[Hg] 62 mm[Hg] Soni Kumar LPN [facility] 5 15:13:16 Date Recorded Body height Body mass index (BMI) Body weight Body temperature Oxygen saturation Oxygen saturation in Arterial blood by Pulse oximetry Heart rate Respiratory rate Systolic blood pressure Diastolic blood pressure Provider Name and Address Organization Details Last Updated DateTime 5 157.48 cm 45.3 kg/m2 428730. 83 g 97.8 [degF] 96 % 96 % 80 /min 16 /min 131 mm[Hg] 77 mm[Hg] Lori Noland MA [facility] 5 15:41:16 Date Recorded Body height Body mass index (BMI) Body weight Heart rate Oxygen saturation Oxygen saturation in Arterial blood by Pulse oximetry Systolic blood pressure Diastolic blood pressure Provider Name and Address Organization Details Last Updated DateTime 5 157.48 cm 43.5 kg/m2 079867. 98 g 74 /min 97 % 97 % 138 mm[Hg] 62 mm[Hg] Daya Prieto RN [facility] 5 14:43:55 Social History Question Answer Notes LastModified by Organizat ion Details LastModified Time Tobacco Smoking Status Never Smoker SHRAVAN Gann, [facility] 07/01/2014 12:47:25 Do You Have An Advance Directive? No Information not available 10/12/2020 Are You Blind Or Do You Have Difficulty Seeing? No Glasses Information not available 10/12/2020 What Is Your Level Of Caffeine Consumption? Moderate Coffee [email or web address] Information not available 04/16/2019 How Much Tobacco Do You Chew? None Information not available 03/15/2016 In The 14 Days Before Symptom Onset, Have You Had Close Contact With A Laboratory-confi rmed COVID-19 While That Case Was Ill? No Information not available 12/05/2019 In The 14 Days Before Symptom Onset, Have You Had Close Contact With A Person Who Is Under Investigation For COVID-19 While That Person Was Ill? No Information not available 12/05/2019 Have You Been To An Area Known To Be High Risk For COVID-19? No Information not available 12/05/2019 Are You Deaf Or Do You Have Serious Difficulty Hearing? Yes Difficulty Hearing In Both Ears. More In Rt Ear. Information not available 01/31/2022 What Type Of Diet Are You Following? REGULAR Low Carb & Low Fat Information not available 04/11/2021 Which Illicit Or Recreational Drugs Have You Used? Denies Information not available 03/15/2016 Education 12 [email or web address] Information no t available 02/06/2020 What Is The Highest Grade Or Level Of School You Have Completed Or The Highest Degree You Have Received? [id number] Information not available 10/12/2020 Are There Any Guns Present In Your Home? No Information not available 09/24/2014 Hard Of Hearing Or Deaf In One Or Both Ears? No Information not available 09/24/2014 Legally Blind In One Or Both Eyes? No Information not available 09/24/2014 Marital Status Informatio n not available 03/15/2016 What Was The Date Of Your Most Recent Tobacco Screening? 12/08/2024 Information not available 12/08/2024 Performs Monthly Self-breast Exam? Yes Information not available 09/24/2014 Do You Have Any Pets? Yes 2 Dogs Information not available 01/31/2022 What Is Your Relationship Status? Information not available 10/12/2020 Do You Use Your Seat Belt Or Car Seat Routinely? Yes Information not available 10/12/2020 Seat Belts Used Routinely Yes Information not available 09/24/2014 Smoke Alarm In Home Yes Information not available 09/24/2014 Do You Have Smoke And Carbon Monoxide Detectors In Your Home? Yes Information not available 10/12/2020 Are You Passively Exposed To Smoke? No [email or web address] Information not available 06/24/2021 How Much Tobacco Do You Smoke? No Information not available 12/05/2019 General Stress Level Low Son 3 Weeks Ago Information not available 02/06/2020 Do You Use Sunscreen Routinely? No Information not available 01/01/2019 Has Tobacco Cessation Counseling Been Provided? Yes Information not available 01/31/2022 On What Date Was Tobacco Cessation Counseling Provided? 12/08/2024 Information not available 12/08/2024 Sex: Female Functional Status Question Answer Note LastModified by Organizat ion Details LastModified Time Do you use any illicit or recreational drugs? No Information not available 10/12/2020 Do you or have you ever used any other forms of tobacco or nicotine? No Information not available 10/12/2020 What is your level of alcohol consumption? None [email or web address] Information not available 07/01/2014 Do you or have you ever used smokeless tobacco? Never used smokeless tobacco Information not available 12/05/2019 Are you currently employed? No Information not available 10/12/2020 Are you able to care for yourself? Yes Information not available 10/12/2020 What is your occupation? Unemployed deni Information not available 07/27/2017 Do you or have you ever used e-cigarettes or vape? Never used electronic cigarettes Information not available 12/05/2019 What is your exercise level? None walk Information not available 12/28/2021 What type of noise exposure are you exposed to? noExposureToExcessiveNois e Information not available 01/31/2022 Mental Status Question Answer Note LastModified by Organizat ion Details LastModified Time Do you feel stressed (tense, restless, nervous, or anxious, or unable to sleep at night)? [id number] Son recently Information not available 05/05/2024 Family History Relationship Description Onset Age of this Age Resolved Age Notes LastModified by Organization Details LastModified Time Mother Diabetes mellitus Not available 2015 15:18:22 Mother Essential hypertension Not available 15:18:22 Sister Diabetes mellitus Not available 2015 15:18:22 Sister Essential hypertension Not available 15:18:22 Son Myocardial infarction 41 [email or web address] Not available 01/20 14:35:06 Medical History Condition Response Allergies/Hayfever N Coronary Artery Disease N Gout N Other N Atrial Fibrillation N High Blood Pressure Y Emphysema N Thyroid Problems Y Kidney or Bladder Problems Y Blood Clots N Congenital Heart Disease N COPD N Depression Y GI Problems N Pneumonia N Skin Problems N Anemia N Heart Attack ([place]) N Lung Mass N Anxiety Disorder N Diabetes Y Cystic Fibrosis N Muscle, Joint, or Bone Problems N Obesity Y Seizures/Epilepsy N Blood Clot N Tuberculosis N Acid Reflux (GERD) N Cancer N Stroke N Diverticulitis N Asthma N Allergies N High Cholesterol Y Hepatitis N Liver Disease N Heart Disease N Bronchitis N Pulmonary Embolism N Headaches Y Heart Failure N Osteoporosis N Gynecological HistoryNo gynecological history recorded. Obstetrics History GPAL:G 0 P 0 0 0 0 Immunizations Vaccine Type Date Status Note Provider Nam e and Address Organization Details Recorded Time COVID-19, mRNA, LNP-S, PF, 30 mcg/0.3 mL dose 1 completed Alyssia Alcocer MA null, [place] [facility] 12/28/2021 08:58:33 COVID-19, mRNA, LNP-S, PF, 30 mcg/0.3 mL dose 1 completed SHRAVAN Lemus, [place] [facility] 12/28/2021 08:58:56 COVID-19, mRNA, LNP-S, PF, 30 mcg/0.3 mL dose 2 completed SHRAVAN [place], [place] [facility] 12/28/2021 09:00:03 Influenza, split virus, quadrivalent, preservative 6 completed Not Available [facility] 08/09/2019 02:49:12 Influenza, high-dose, trivalent, PF 4 completed Not Available [facility] 08/23/2019 02:11:35 pneumococcal polysaccharide PPV23 4 completed Not Available [facility] 12/08/2024 14:39:32 Influenza, split virus, quadrivalent, PF 2 completed Not Available [facility] 12/08/2024 14:39:32 Pneumococcal conjugate PCV20, polysaccharide [id number] conjugate, adjuvant, PF 2 completed Not Available [facility] 12/08/2024 14:39:32 COVID-19, mRNA, LNP-S, PF, 30 mcg/0.3 mL dose, diane-sucrose 2 completed Not Available [facility] 12/08/2024 14:39:32 Influenza, split virus, quadrivalent, preservative 7 completed Not Available [facility] 08/09/2019 02:43:40 pneumococcal polysaccharide PPV23 5 completed Not Available [facility] 08/09/2019 02:42:33 Tdap 4 completed Fabricio swenson, [place] - [facility] 02/10/2015 12:48:22 Influenza, split virus, quadrivalent, preservative 8 completed Not Available [facility] 08/09/2019 02:46:10 Influenza, split virus, quadrivalent, preservative 9 completed Not Available [facility] 08/09/2019 02:44:51 Pneumococcal conjugate PCV20, polysaccharide [id number] conjugate, adjuvant, PF 2 completed Sandeep Christensen MD Attn: [address] [place], [address], [place] [facility] 05/04/2022 15:40:42 Influenza, high-dose, quadrivalent, PF 3 completed Sandeep Christensen MD Attn: [address] [place], [address], [place] [facility] 06/12/2023 10:57:40 Influenza, high-dose, trivalent, PF 4 completed Alyssia Alcocer [place] null, [place] [facility] 05/05/2024 16:11:19 Tdap 5 completed Lori Noland [place] null, [place] [facility] 11/03/2024 16:45:39 Influenza, split virus, quadrivalent, preservative 5 completed Not Available [facility] 08/09/2019 02:47:18 pneumococcal polysaccharide PPV23 5 completed Not Available [facility] 08/23/2019 02:11:35 Past Encounters Encounter ID Performer Location Encounter Start Date Encounter Closed Date Diagnosis/Indication Diagnosis SNOMED-CT Code Diagnosis ICD10 Code Diagnosis Note [id number] MD Cameron Mendoza (Adult Med) [address] [place] [address] 07/01/2014 12:15:27 07/01/2014 13:14:30 Essential hypertension [id number] Blood pressure well controlled . Advised patient to continue same medication s. Advised regular exercise like walking and weight reduction. Type 2 marsha betes mellitus [id number] MD Cameron Mendoza (Adult Med) [address] [place] [address] 09/24/2014 11:48:01 09/24/2014 14:25:23 Type 2 diabetes mellitus [id number] HBA1C 6.0. Continue Metformin. Essential hypertension [id number] Blood pressure well controlled . Advised patient to continue same medication s. Advised regular exercise like walking and weight reduction. Hyperlipidemia 10250564 LDL well controlled . Chronic depression [id number] Stable. continue Citalopram . Edema of l ower extremity [id number] Advised low salt diet,eleva tion of the legs. DAPHNE hose to use in the day time. Administra tion of pneumococcal vaccine [id number] [facility] Med) [address] [place] [address] 02/10/2015 12:05:51 02/10/2015 12:49:17 Diabetes mellitus 09933900 Continue same medication . Last HBA1C was 6.0. Advised regular exercise and weight reduction Essential hypertension 94051929 Blood pressure well controlled . Advised patient to continue same medication s. Advised regular exercise like walking and weight reduction. Hyperlipidemia 39186917 LDL well controlled . Edema of l ower extremity 100652289 Advised low salt diet,eleva tion of the legs. DAPHNE hose to use in the day time. Chronic depression 611094866 c/o anxiety and stress with life stressors. Increase the Citalopram to 20 mg po daily [id number] MD Oralia Mendozahalto (Adult Med) [address] [place] [address] 06/14/2015 12:07:48 06/14/2015 15:42:34 Type 2 diabetes mellitus 48464509 E11.9 HBA1C 6.2. Continue Metformin. Essential hypertension 79980413 I10 Blood pressure well controlled . Advised patient to continue same medication s. Advised regular exercise like walking and weight reduction. Hyperlipidemia 03204088 E78.2 LDL well controlled . Chronic depression 18289 0009 F34.1 c/o anxiety and stress . Citalopram was increased to 20 mg po daily at the last visit but she could not tolerate the citalopram 20 mg.She takes Citalopram 20 mg half tab daily and she feels better now. Morbid obesity 705307573 E66.01 advised 1500 calory low fat,low cholestero l,low carb diet,regul ar exercise and weight reduction. Influenza vaccine needed [id number] 106 Z23 Screening for malignant neoplasm of colon 517629752 Z12.11 [id number] MD Oralia Mendozahalto (Adult Med) [address] [place] [address] 10/11/2015 11:40:18 10/11/2015 16:44:24 Diabetes mellitus 00614281 E11.9 Continue same medication . Last HBA1C was 6.5. Advised regular exercise and weight reduction Essential hypertension 41670260 I10 Blood pressure not controlled well Amlodipine was increased to 5 mg but she is c/o dizziness with Amlodipine 5 mg.Current ly takes half tab daily. Advised patient to continue same medication s. Advised regular exercise like walking and weight reduction. Hyperlipidemia 83465654 E78.2 LDL well controlled . Chronic depression 86023 0009 F34.1 she could not tolerate the citalopram 20 mg.She takes Citalopram 20 mg half tab daily and she feels better. Morbid obesity 716927250 E66.01 advised 1500 calory low fat,low cholestero l,low carb diet,regul ar exercise and weight reduction. [id number] MD Cameron Alonzo (Adult Med) [address] [place] [address] 03/15/2016 14:31:33 03/15/2016 16:45:01 Essential hypertension 89567748 I10 with dependent edema continue Lisinipril / HCTZ/ amlodipine Add Aldactone Type 2 marsha betes mellitus 60148143 E11.9 continue Metformine Hyperlipidemia 74076511 E78.5 continue simvastati n Chronic depression 04516 0009 F34.1 continue citalopram Morbid obesity 996218124 E66.01 diet and exercise to loose w t Osteoarthr itis of knee 027390385 M17.0 loose wt Mobic daily prn -use sparingly [id number] MD Cameron Alonzo (Adult Med) [address] [place] [address] 04/18/2016 15:02:42 04/18/2016 15:47:51 Essential hypertension 66672443 I10 with dependent edema which is improving continue Lisinipril / HCTZ/ amlodipine continue Aldactone Hyperlipidemia 50182546 E78.5 continue simvastati n Type 2 marsha betes mellitus 21134052 E11.9 Increase Metformine bid Chronic depression 80063 000 F34.1 continue citalopram Morbid obesity 273124388 E66.01 diet and exercise to loose w t Osteoarthr itis of knee 260748763 M17.0 loose wt Mobic daily prn -use sparingly Influenza vaccine needed [id number] 106 Z23 [id number] MD Oralia Alonzohalto (Adult Med) [address] [place] [address] 07/31/2016 15:45:22 07/31/2016 16:52:19 Type 2 diabetes mellitus 94593174 E11.9 continue Metformine Essential hypertension 24398369 I10 continue Lisinopril /HCT/amlod ipine/ propranolo l/ Aldactone Chronic depression 8 F34.1 continue citalopram Hyperlipidemia 00769522 E78.5 continue simvastati n [id number] [facility] [address] [place] [address] 11/20/2016 15:09:18 11/21/2016 13:57:13 Essential hypertension 35660081 I10 continue Lisinopril /HCT/amlod ipine/ propranolo l/ Aldactone Hyperlipidemia 99710661 E78.5 continue simvastati n Type 2 marsha betes mellitus 20622342 E11.9 continue Metformine Chronic depression 8 F34.1 continue citalopram Gastroesop hageal reflux disease without esophagitis 559706832 K21.9 pt to loose wt Atopic dermatitis 093552 01 L20.9 [id number] MD Oralia Alonzohalto (Adult Med) [address] [place] [address] 04/20/2017 11:18:02 04/20/2017 15:39:17 Essential hypertension 12549737 I10 fair control - pt is feeling little stressed today due to family issuescont inue Lisinopril /HCT/amlod ipine/ propranolo l/ Aldactoneb p check in 3 wks Type 2 marsha betes mellitus 63907889 E11.9 continue Metformine Chronic depression 8 F34.1 continue citalopram Hyperlipidemia 86300725 E78.5 continue simvastati n Administra tion of influenza vaccine 87118094 Z23 Bladder mu scle dysfunction - overactive 138248615 N32.81 [id number] [facility] [address] [place] [address] 07/27/2017 14:31:26 07/31/2017 14:59:03 Essential hypertension 32932894 I10 fair controlcon tinue Lisinopril /HCT/amlod ipinedisco ntinue propranolo lIncrease Aldactone bidbp check in 3 wks Hyperlipidemia 57825509 E78.5 continue simvastati n Type 2 marsha betes mellitus 69261164 E11.9 continue metformine Chronic depression 96205 0009 F34.1 continue citalopram Screening for malignant neoplasm of colon 507962903 Z12.11 no insurance for colonoscop y [id number] [facility] [address] [place] [address] 11/09/2017 11:08:33 11/09/2017 15:34:07 Essential hypertension 08020516 I10 Improvingc ontinue Lisinopril /HCT/amlod ipine(disc ontinued propranolo l)continue Aldactone bid Type 2 marsha betes mellitus 04548438 E11.9 continue metformine Hyperlipidemia 90354010 E78.5 continue simvastati n Chronic depression 26372 0009 F34.1 stablecont inue citalopram Screening mammography 24 559829 Z12.31 pt to go to for [employer] ( pt does not have insurance ) -informati on given to pt [id number] [facility] [address] [place] [address] 02/14/2018 14:30:45 02/18/2018 16:22:11 Essential hypertension 68156899 I10 fair controlcon tinue Lisinopril /HCT/amlod ipine(disc ontinued propranolo l)start pt on coreg Hyperlipidemia 67193458 E78.5 continue simvastati n Type 2 marsha betes mellitus 01712472 E11.9 continue metformine Hypothyroidism 83125477 E03.9 continue low dose levothyrox in Chronic depression 12318 0009 F34.1 stablecont inue citalopram Spasm of back muscles 20 9128408 M62.830 back exercises [id number] MD Cameron Alonzo (Adult Med) [address] [place] [address] 06/26/2018 11:28:29 06/27/2018 10:49:15 Administration of influenza vaccine 07869260 Z23 Screening for malignant neoplasm of colon 950985869 Z12.11 no insurance for colonoscop y Essential hypertension 61522919 I10 fair controlpt did not refill hctz for a whil-will send rxcontinue Lisinopril /HCT/amlod ipine(disc ontinued propranolo l)continue coreg Type 2 marsha betes mellitus 21382628 E11.9 continue metformine Hyperlipidemia 83876610 E78.5 continue simvastati n Hypothyroidism 73030430 E03.9 continue low dose levothyrox in Chronic depression 8 F34.1 stablecont inue citalopram Pain of right wrist 3169 965018 44100 M25.531 pt to try wrist brace / loose wtcontinue mobic prn [id number] MD Cameron Alonzo (Adult Med) [address] [place] [address] 01/01/2019 10:52:11 01/02/2019 08:16:56 Screening for malignant neoplasm of colon 233701600 Z12.11 no insurance for colonoscop y Essential hypertension 89988433 I10 stablecont inue Lisinopril /HCT/amlod ipine(disc ontinued propranolo l)continue coreg Type 2 marsha betes mellitus 94437091 E11.9 continue metformine Chronic depression 07605 0009 F34.1 stablecont inue citalopram Hypothyroidism 72955142 E03.9 continue low dose levothyrox in Hyperlipidemia 17067997 E78.5 continue simvastati n Screening mammography 24 033358 Z12.31 pt to go to for [employer] ( pt does not have insurance ) -informati on given to pt [id number] MD Cameron Alonzo (Adult Med) [address] [place] [address] 04/16/2019 14:41:30 04/18/2019 08:57:18 Essential hypertension 51191530 I10 stablecont inue Lisinopril /HCT/amlod ipine(disc ontinued propranolo l)continue coreg Type 2 marsha betes mellitus 49352228 E11.9 continue metformine Chronic depression 22344 0009 F34.1 stablecont inue citalopram Hyperlipidemia 90635515 E78.5 continue simvastati n Hypothyroidism 44250386 E03.9 continue low dose levothyrox in Administra tion of influenza vaccine 90220883 Z23 [id number] [facility] [address] [place] [address] 12/05/2019 08:28:07 12/08/2019 11:27:30 Essential hypertension 48341911 I10 stablecont inue Lisinopril /HCT/amlod ipine(disc ontinued propranolo l)continue coreg Type 2 marsha betes mellitus 30033934 E11.9 continue metformin. Hypothyroidism 15578787 E03.9 continue low dose levothyrox ine Hyperlipidemia 66926639 E78.5 continue simvastati n Chronic depression 86583 0009 F34.1 stablecont inue citalopram Spasm of u rinary bladder 797167219 N32.89 Renewal of prescription 240234943 Z76.0 [id number] Sandeep Christensen MD [facility] (Adult Med) [address] [place] [address] 02/06/2020 13:01:48 02/09/2020 07:46:14 Essential hypertension 83557729 I10 stablecont inue Lisinopril /HCT/amlod ipine(disc ontinued propranolo l)continue coreg Type 2 marsha betes mellitus 23338357 E11.9 continue metformin. Hyperlipidemia 64546939 E78.5 continue simvastati n Hypothyroidism 93329956 E03.9 continue low dose levothyrox ine Chronic depression 68125 0009 F34.1 with bereavemen t /insomnia .continue citalopram Add trazodone hs Gastroesop hageal reflux disease without esophagitis 596760405 K21.9 pt to loose wt [id number] MD Oralia Alonzohalto (Adult Med) [address] [place] [address] 04/15/2020 08:29:03 04/16/2020 12:51:35 Chronic depression 586622680 F34.1 with bereavemen t /insomnia .pt is feeling better nowcontinu e citalopram .pt takes trazodone hs prn Essential hypertension 58510376 I10 stablecont inue Lisinopril /HCT/amlod ipine(disc ontinued propranolo l)continue coreg Type 2 marsha betes mellitus 90492209 E11.9 continue metformin. Hyperlipidemia 39456626 E78.5 continue simvastati n Hypothyroidism 58261332 E03.9 continue levothyrox ine Renewal of prescription 815313164 Z76.0 Spasm of u rinary bladder 076816932 N32.89 [id number] MD Cameron Alonzo (Adult Med) [address] [place] [address] 08/10/2020 08:45:28 08/11/2020 07:56:59 Screening for malignant neoplasm of colon 091810488 Z12.11 no insurance for colonoscop y Essential hypertension 92606829 I10 stablecont inue Lisinopril /HCT/amlod ipine(disc ontinued propranolo l)continue coreg Type 2 marsha betes mellitus 86116863 E11.9 continue metformin. Hyperlipidemia 20868675 E78.5 continue simvastati n Hypothyroidism 35380219 E03.9 continue levothyrox ine Chronic depression 14099 0009 F34.1 with bereavemen t /insomnia .pt is feeling better nowcontinu e citalopram .pt is off of trazododon e. Renewal of prescription 806360784 Z76.0 [id number] MD Oralia Alonzohalto (Adult Med) [address] [place] [address] 10/12/2020 08:11:51 10/15/2020 09:19:44 Chest pain 95621092 R07.9 with multiple risk factors pt to go to ER for evaluation - agreed to do that . Chronic depression 60030 0009 F34.1 with bereavemen t /insomnia . pt to increase citalopram . pt is off of trazodone. [id number] MD Cameron Alonzo (Adult Med) [address] [place] [address] 02/25/2021 14:30:02 02/28/2021 18:15:58 Chronic depression 016031461 F34.1 with bereavemen t /insomnia and wt loss due to depression change citalopram to sertraline 50mg for 2 wks and then to 100mg daily pt is off of trazodone. Type 2 marsha betes mellitus 12423788 E11.9 continue metformin. Essential hypertension 04676138 I10 stablecont inue Lisinopril /HCTpt stopped taking amlodipine -monitor bp without it(discont inued propranolo l)continue coreg Hyperlipidemia 25852008 E78.5 continue simvastati n Hypothyroidism 89619529 E03.9 continue levothyrox ine Chest pain 95086021 R07. 9 with multiple risk factors - pt wants to see cardio- check ekg /echo as wellpt to go to ER for evaluation if recurs Insomnia 653951868 G47.0 0 check sleep study Screening for malignant neoplasm of colon 023527076 Z12.11 wants to wait for colonoscop y [id number] [facility] [address] [place] [address] 04/11/2021 10:17:37 04/18/2021 12:53:01 Chronic depression 759713022 F34.1 with bereavemen t /insomnia and wt loss due to depression pt is feeling much better on sertraline 50mg daily pt is off of trazodone. Hypothyroidism 35399179 E03.9 continue levothyrox ine Type 2 marsha betes mellitus 21929726 E11.9 continue metformin. Hyperlipidemia 34500104 E78.5 continue simvastati n Essential hypertension 48720521 I10 stablecont inue Lisinopril /HCTpt stopped taking amlodipine -monitor bp without it(discont inued propranolo l)continue coreg [id number] MD Cameron Russell (Adult Med) [address] [place] [address] 06/24/2021 15:39:36 06/27/2021 09:37:01 Insomnia 989184292 G47.00 Likely due to CHACHA, Will reassess after cpap therapy in 3 months Obstructiv e sleep apnea syndrome 18253470 G47.33 Home sleep study 04/04/21: Ahi 9.3/hr, lowest O2 87%Pt declines overnight titratin at this time. WIll begin with apap and assess sleepOrder ing Cpap through [facility]. Encouraged to use cpap every night. Instructed pt to contact DME for any issues with mask fit, comfort, or machine related issue. F/U in 3 months to assess compliance and efficacy.s leep hygiene discussed Body mass index 40+ - severely obese 495212377 Z68.42 BMi 45.4 Essential hypertension 24592402 I10 Managed by PCP Hypothyroidism 40660748 E03.9 Managed by PCP [id number] MD Cameron Alonzo (Adult Med) [address] [facility] [place] [address] 08/26/2021 11:33:31 08/29/2021 10:07:11 Essential hypertension 23644874 I10 stablecont inue Lisinopril /HCTpt stopped taking amlodipine -monitor bp without it(discont inued propranolo l)continue coreg Type 2 marsha betes mellitus 82311371 E11.9 continue metformin. Hyperlipidemia 74353183 E78.5 continue simvastati n Hypothyroidism 10626567 E03.9 continue levothyrox ine Chronic depression 48423 0009 F34.1 with bereavemen t /insomnia and wt loss due to depression pt is feeling much better on sertraline 100 mg daily pt is off of trazodone. [id number] MD Cameron Alonzo (Adult Med) [address] [place] [address] 12/28/2021 08:45:14 12/29/2021 08:38:02 Essential hypertension 93494326 I10 not well controlled -meds were changed by her cardio- pt is on losartan/h ctz/coreg 25mg bidpt also started on hydralazin e 50mg bid per cardio -just started 2 dayspt stopped taking amlodipine -monitor bp without it - pt sees cardio due to high risk pt Type 2 marsha betes mellitus 44410814 E11.9 continue metformin. Hypothyroidism 70405552 E03.9 continue levothyrox ine Chronic depression 63826 0009 F34.1 with bereavemen t /insomnia and wt loss due to depression pt is feeling much better on sertraline 100 mg daily pt is off of trazodone. Hyperlipidemia 81559361 E78.5 continue atorvastat in 80mg per cardio Screening for malignant neoplasm of colon 389156542 Z12.11 wants to wait for colonoscop y Obesity 443114002 E66.9 Abdominal pain 21905408 R10.11 with h/o cholecyste ctomy- check us Impacted c erumen of bilateral ears 8611628232 315778 H61.23 with poor hearing -needs ear irrigation [id number] MD Oralia Vegahalto (Adult Med) [address] [place] [address] 01/31/2022 16:05:58 02/01/2022 08:16:47 Impacted cerumen 39592002 H61.20 Impacted c erumen of bilateral ears 5751135147 362402 H61.23 start sweet oil in both ears follow back in two weeks [id number] [facility] [address] [place] [address] 02/14/2022 16:05:13 02/15/2022 07:59:54 Impacted cerumen 65052865 H61.20 continue sweet oil [id number] [facility] [address] [place] [address] 05/04/2022 11:02:22 05/05/2022 09:14:56 Essential hypertension 15728611 I10 not well controlled -did not take her meds today -counselle d to take meds as prescribed -meds were changed by her cardio- pt is on losartan/h ctz/coreg 25mg bidpt also started on hydralazin e 50mg bid per cardiopt stopped taking amlodipine -monitor bp without it - pt sees cardio due to high risk pt Type 2 marsha betes mellitus 70752069 E11.9 continue metformin. Hyperlipidemia 86266052 E78.5 continue atorvastat in 80mg per cardio Hypothyroidism 55831764 E03.9 continue levothyrox ine Chronic depression 46256 0009 F34.1 with bereavemen t /insomnia and wt loss due to depression pt is feeling much better on sertraline 100 mg daily pt is off of trazodone. Obesity 632992593 E66.9 Screening for malignant neoplasm of colon 672776941 Z12.11 wants to wait for colonoscop y Administra tion of pneumococcal vaccine 81112270 Z23 Screening mammography 24 529285 Z12.31 pt to go to for [employer] ( pt does not have insurance ) -informati on given to pt Steatotic liver disease 856820711 K76.0 healthy diet and exercise discussed with pt [id number] MD Cameron Alonzo (Adult Med) [address] [place] [address] 11/17/2022 11:11:01 11/20/2022 11:26:03 Essential hypertension 06134783 I10 not well controlled -did not take her meds today -counselle d to take meds as prescribed -meds were changed by her cardio- pt to go back on losartan 50mg /hctz/core g 25mg bid /imdur pt also started on hydralazin e 50mg bid per cardiopt stopped taking amlodipine -monitor bp without it - pt sees cardio due to high risk pt Type 2 marsha betes mellitus 31827347 E11.9 continue metformin. Hypothyroidism 84253576 E03.9 continue levothyrox ine Hyperlipidemia 80867265 E78.5 continue atorvastat in 80mg per cardio Chronic depression 0009 F34.1 with bereavemen t /insomnia and wt loss due to depression pt is feeling much better on sertraline 100 mg daily pt is off of trazodone. Morbid obesity 390593563 E66.01 diet and exercise to loose w t [id number] MD Cameron Alonzo (Adult Med) [address] [place] [address] 02/05/2023 14:31:44 02/07/2023 11:15:22 Essential hypertension 83668004 I10 stable -meds were changed by her cardio- pt to go back on losartan 50mg /hctz/core g 25mg bid /imdur pt also started on hydralazin e 50mg bid per cardiopt stopped taking amlodipine -monitor bp without it - pt sees cardio due to high risk pt Type 2 marsha betes mellitus 02376016 E11.9 continue metformin. Hyperlipidemia 49416771 E78.5 continue atorvastat in 80mg per cardio Hypothyroidism 02360745 E03.9 continue levothyrox ine Morbid obesity 144733679 E66.01 diet and exercise to loose w t Osteoarthr itis of knee 732671240 M17.0 loose wt Mobic daily prn -use sparingly Screening mammography 24 984497 Z12.31 [id number] MD Oralia Alonzohalto (Adult Med) [address] [place] [address] 06/11/2023 14:27:42 06/18/2023 15:11:26 Administration of influenza vaccine 56841634 Z23 Essential hypertension 33289973 I10 stable -meds were changed by her cardio- pt to go back on losartan 50mg /hctz/core g 25mg bid /imdur pt also started on hydralazin e 50mg bid per cardiopt stopped taking amlodipine -monitor bp without it - pt sees cardio due to high risk pt Hyperlipidemia 34632430 E78.5 continue atorvastat in 80mg per cardio Type 2 marsha betes mellitus 10695612 E11.9 continue metformin. Hypothyroidism 59379788 E03.9 continue levothyrox ine Chronic depression 00908 0009 F34.1 with bereavemen t /insomnia and wt loss due to depression pt is feeling much better on sertraline 100 mg daily pt is off of trazodone. Obesity 884381705 E66.9 Screening for malignant neoplasm of colon 874391419 Z12.11 wants to wait for colonoscop y [id number] MD Oralia Alonzohalto (Adult Med) [address] [place] [address] 10/22/2023 14:46:36 10/25/2023 15:01:22 Chronic depression 432839676 F34.1 with bereavemen t /insomnia and wt loss due to depression pt is feeling much better on sertraline 100 mg daily pt is off of trazodone. Hypothyroidism 26081699 E03.9 continue levothyrox ine Type 2 marsha betes mellitus 63078617 E11.9 continue metformin. Obesity 457185523 E66.9 Essential hypertension 98187125 I10 stable -meds were changed by her cardio who changes her med which is a challenge for me to regulate her bp meds- med list given to pt to check with home meds- pt to go back on losartan -not sure whether 50mg or 100mg /hctz/core g 25mg bid /imdur pt also started on hydralazin e 50mg bid per cardiopt stopped taking amlodipine -monitor bp without it - pt sees cardio due to high risk pt Hyperlipidemia 99582604 E78.5 continue atorvastat in 80mg per cardio Screening for malignant neoplasm of colon 528902815 Z12.11 pt did not go for colonoscop y Decreased hearing 216674 001 H91.91 and dizziness at times- pt to go for hearing evaluation [id number] MD Cameron Alonzo (Adult Med) [address] [place] [address] 02/04/2024 08:27:00 02/06/2024 14:49:51 Essential hypertension 86468325 I10 stable -meds were changed by her cardio who changes her med which is a challenge for me to regulate her bp meds- med list given to pt to check with home meds- pt is back on losartan -cardio increased losartan to 100mg /hctz/core g 25mg bid /imdur pt also started on hydralazin e 50mg bid per cardiopt stopped taking amlodipine -monitor bp without it - pt sees cardio due to high risk pt Type 2 marsha betes mellitus 76132296 E11.9 continue metformin. Hyperlipidemia 72930745 E78.5 continue atorvastat in 80mg per cardio Chronic depression 59111 0009 F34.1 with bereavemen t /insomnia and wt loss due to depression pt is feeling much better on sertraline 100 mg daily pt is off of trazodone. Hypothyroidism 24303038 E03.9 continue levothyrox ine Obesity 896479742 E66.8 Thoracic back pain 52869 8004 M54.6 -heat therapy/ex ercise-donavon id nsaid [id number] MD Cameron Alonzo (Adult Med) [address] [place] [address] 05/05/2024 11:47:06 05/12/2024 09:01:28 Administration of influenza vaccine 19416730 Z23 Renewal of prescription 296229873 Z76.0 Essential hypertension 97471135 I10 stable -meds were changed by her cardio who changes her med which is a challenge for me to regulate her bp meds- med list given to pt to check with home meds- pt is back on losartan -cardio increased losartan to 100mg /hctz/core g 25mg bid pt also started on hydralazin e 50mg bid per cardio which pt is not taking nowpt stopped taking amlodipine -monitor bp without it - pt sees cardio due to high risk pt Type 2 marsha betes mellitus 12584096 E11.9 continue metformin. Hyperlipidemia 49735206 E78.5 continue atorvastat in 80mg per cardio- pt is also on zetia Hypothyroidism 26806050 E03.9 continue levothyrox ine Chronic depression 89438 0009 F34.1 with bereavemen t /insomnia and wt loss due to depression pt is feeling much better on sertraline 100 mg daily pt is off of trazodone. Obstructiv e sleep apnea syndrome 32795937 G47.33 pt did not tolerate cpap -not using it - refer to sleep medicine [id number] MD Cameron Alonzo (Adult Med) [address] [place] [address] 08/21/2024 11:41:09 08/22/2024 10:57:28 Essential hypertension 88847437 I10 not well controlled -meds were changed by her cardio who changes her med which is a challenge for me to regulate her bp meds- med list given to pt to check with home meds- pt is back on losartan -cardio increased losartan to 100mg /hctz/core g 25mg bid pt to restart hydralazin e 25mg bidpt stopped taking amlodipine -monitor bp without it- f/u in 2-3 wks for bp check- pt sees cardio due to high risk pt Type 2 marsha betes mellitus 01767019 E11.9 continue metformin. Chronic depression 94000 0009 F34.1 with bereavemen t /insomnia and wt loss due to depression pt is feeling much better on sertraline 100 mg daily pt is off of trazodone. Hyperlipidemia 61718236 E78.5 continue atorvastat in 80mg per cardio- pt is also on zetia [id number] Richa Diaz MD [facility] - [place] [address] [place] [address] 08/25/2024 14:24:54 09/05/2024 11:06:04 Chest pain 59940415 R07.9 Coronary arteriosclerosis 00134068 I25.10 Dyspnea on exertion 6084 5006 R06.09 Essential hypertension 74691516 I10 Pure hypercholesterolemia 332606050 E78.00 Morbid obesity 685832671 E66.01 [id number] Richa Diaz MD [facility] [place] [address] [place] [address] 09/09/2024 15:32:32 09/10/2024 15:24:27 Acute on chronic diastolic heart failure 547328258 I50.33 I25.119 I10 R94.31 [id number] Richa Diaz MD [facility] [place] [address] [place] [address] 10/07/2024 15:05:21 10/08/2024 08:50:12 Acute on chronic diastolic heart failure 098299461 I50.33 I25.119 I10 R94.31 Mildly volume overloaded based on proBNP and symptoms. Initiate furosemide 20 mg daily. Encouraged hydration, low-sodium diet and postural precaution s. Continue current dose of Jardiance. Based on home blood pressure readings, at follow-up visit, we will consider addition of spironolac tone. Atheroscle rosis of coronary artery without angina pectoris [id number] 45107 I25.10 Overall low risk findings on her pharmacolo gic stress testing with nonobstruc tive CAD on last coronary CTA. Discussed options of anatomic evaluation for CAD. Currently wish for medical management . Continue aspirin 81 mg daily. Encouraged use of p.r.n. nitroglyce rin during episodes of chest pain. We will plan close interval follow-up to discuss further anatomic evaluation for CAD if symptoms persist. Red flag symptoms to seek urgent medical attention via EMS in the interim reinforced . Essential hypertension 29300687 I10 Given addition of furosemide , we will discontinu e HCTZ. Encouraged low-sodium diet and ambulatory blood pressure monitoring . Continue carvedilol 25 mg b.i.d., hydralazin e 25 mg b.i.d. and losartan 100 mg daily. Morbid obesity 352412379 E66.01 Maintained on Ozempic per PCP. Diet/exerc ise reinforced . [id number] [facility] [address] [place] [address] 11/03/2024 13:57:22 11/21/2024 14:18:25 Screening for malignant neoplasm of colon 080517539 Z12.11 HIV screen ing declined 8450994530 74585 Z53.20 Type 2 marsha betes mellitus 44837618 E11.9 -[facility] A1c 6.3% (05/05/24) -Goal A1c < 7%-Home blood glucose readings: n/a-DM Maintenanc eEye exam: referral placedFoot exam: 11/03/24Mic roal: order at f/u-Denies hypo/hyper glycemia episodes.- Recheck A1c today: 6.6%-[place] nue current therapy: jardiance 10mg daily, metformin 1000mg BID, ozempic 0.25mg weekly-Rec ommended diabetic diet-Educa daphne to check feet daily. Screening mammography 24 595600 Z12.31 Administra tion of diphtheria, pertussis, and tetanus vaccine 964749049 Z23 -Patient agreeable to Tdap vaccine.-N P discussed potential side effects and benefits of vaccine. Hypothyroidism 80981920 E03.9 -Last TSH: 1.580 (08/26/24)-C ontinue current therapy: levothyrox ine 50mcg daily-Bibi tor thyroid panel Screening for osteoporosis 078940168 Z13.274 [id number] Richa Diaz MD [facility] [place] [address] [place] [address] 12/08/2024 14:37:51 12/09/2024 12:02:20 Coronary arteriosclerosis 22696518 I25.10 Nonobstruc tive CAD on last coronary CTA with low risk findings on recent stress test. Symptoms improved. Continue aspirin 81 mg daily. Continue atorvastat in 80 and ezetimibe 10 mg daily. Labs from August 2024 show LDL 35 and HDL 37. Encouraged dietary modificati ons to increase HDL. Chronic di astolic heart failure 011559365 I50.32 Clinically euvolemic. Continue Jardiance 10 and furosemide 20/KCL 20 daily. Encouraged hydration to minimize risk of UTI/yeast infection with SGLT2i. Essential hypertension 10216003 I10 Low-sodium diet, ambulatory blood pressure monitoring . Continue carvedilol 25 b.i.d., hydralazin e 25 b.i.d., losartan 100 daily. Type 2 marsha betes mellitus 89871822 E11.9 Last A1c 6.6 in August 2024. Struggling with weight management . Discussed cardiovasc ular benefits of GLP 1 RA. No GI side effects. Up titrate dose from 0.255-0.5 mg weekly. Has appointmen t to [facility] to consider further titration. Obese class III 23183528 5 E66.813 Ongoing efforts at diet/exerc ise encouraged . Up titrating Ozempic as above. Health Concerns Section Related Observation LastModified by Organization Detai ls LastModified Time None Recorded Concern Status LastModified by Organization Details LastModified Time None Recorded Advance Directives Directive N: Payers Encounter Date Sequence Insurance Name Policy Number Policy Roberts Covered Member ID Roberts Member ID Guarantor Name 08/25/2024 1 [place] Gjulsha Dempsey [id number] Gjulsha Dempsey 08/25/2024 2 [place] Gjulsha Dempsey [id number] Gjulsha Dempsey 09/09/2024 1 [place] Gjulsha Dempsey [id number] Gjulsha Dempsey 09/09/2024 2 [place] WHEN MEDICARE OR MEDICARE REPLACEMENT PRIMARY) Gjulsha Dempsey [id number] Gjulsha Dempsey 10/07/2024 1 [place] Gjulsha Dempsey [id number] Gjulsha Dempsey 11/03/2024 1 [place] Gjulsha Dempsey [id number] Gjulsha Dempsey 12/08/2024 1 [place] Naresh Dempsey [id number] Naresh Dempsey 12/08/2024 2 [place] REPLACEMENT [place]) Naresh Dempsey [id number] Naresh Dempsey Notes Date Note Type Note Provider Name and Address Organization Details Recorded Time 08/25/2024 text/html I had the pleasu re of seeing Ms. Dempsey as a new consultation from Dr. Christensen for recommendations regarding evaluation and management of CAD. Cristal 75-year-old accompanied by her daughter who is acting as spanish interpreter/translator as patient is from [place] and does not speak [place]. history of mild medically managed CAD, type 2 diabetes, hypertension, mixed hyperlipidemia, morbid obesity, CHACHA, diastolic dysfunction, hypothyroidism Interval history:Has been noticing episodes of chest pain which are substernal, pressure-like, nonexertional. Noticing NYHA class 2 dyspnea. Denies palpitations, presyncope or syncope. Has recently started Ozempic per PCP. Labs:April 2024:TSH 3.19, HGB A1c 6.3, hemoglobin 13.0, WBC 7.2, platelet 277, sodium 143, potassium 4.4, chloride 100, CO2 37, BUN 28, creatinine 1.13, EGFR 52, AST 23, ALT 22, LDL 168, VLDL 39, HDL 45, total cholesterol 225, TG 193 Cardiac diagnostics:Twelve lead EKG008/25/2024: Sinus rhythm, right bundle-branch block, left anterior fascicular block Coronary CTA, [facility], July 2022: OM1, mild focal 24-49% stenosis with calcium score 25 Lexiscan nuclear stress test, 2020: Small partial reversible lateral wall perfusion defect Transthoracic echocardiogram, April 2021:LVEF 65%, mild concentric LVH with E/A reversal consistent with grade 1 diastolic dysfunction, normal left atrial size, trace aortic regurgitation Richa Diaz MD Attn: Accounting[address] [place], [address], [facility] 08/25/2024 16:49:32 09/09/2024 text/html Cristal 75-year -old accompanied by her daughter who is acting as spanish interpreter/translator as patient is from [place] and does not speak [place] Korean. History of medically managed CAD, type 2 diabetes, hypertension, mixed hyperlipidemia, morbid obesity, CHACHA, diastolic dysfunction, hypothyroidism Interval history:Daughter providing translation and collateral history. Sporadic episodes of chest pain which have improved. Has not required sublingual nitroglycerin. More compliant with low-sodium diet now. Reports labile blood pressures ranging between 150s-110s with occasional episodes of dizziness. Denies syncope. Labs:08/26/2024: ProBNP 314, LDL 35, HDL 37, TG 158, cholesterol 99, BUN 20, creatinine 0.92, EGFR 67, sodium 144, potassium 4.1, chloride 99, CO2 31, albumin 4.4, AST 24, ALT 31, HGB A1c 6.6, TSH 1.26 April 2024:TSH 3.19, HGB A1c 6.3, hemoglobin 13.0, WBC 7.2, platelet 277, sodium 143, potassium 4.4, chloride 100, CO2 37, BUN 28, creatinine 1.13, EGFR 52, AST 23, ALT 22, LDL 168, VLDL 39, HDL 45, total cholesterol 225, TG 193 Cardiac diagnostics:Transthor acic echocardiogram, 09/02/2024:LVEF 60-65%, grade 1 diastolic dysfunction, global longitudinal strain normal at -18.1, mild mitral annular calcification with no significant mitral regurgitation, trace-mild aortic regurgitation, RVSP 37 mmHg Twelve lead EKG008/25/2024: Sinus rhythm, right bundle-branch block, left anterior fascicular block Coronary CTA, [facility], July 2022: OM1, mild focal 24-49% stenosis with calcium score 25 Lexiscan nuclear stress test, 2020: Small partial reversible lateral wall perfusion defect Transthoracic echocardiogram, April 2021:LVEF 65%, mild concentric LVH with E/A reversal consistent with grade 1 diastolic dysfunction, normal left atrial size, trace aortic regurgitation Richa Diaz MD Attn: Accounting[address] [place], [address], [place] 09/09/2024 16:16:28 10/07/2024 text/html Pleasant 75-year -old accompanied by her daughter who is acting as spanish interpreter/translator as patient is from [place] and does not speak [place] Korean. History of medically managed CAD, type 2 diabetes, hypertension, mixed hyperlipidemia, morbid obesity, CHACHA, diastolic dysfunction, hypothyroidism Interval history:still with occasional episodes of left-sided chest pain which is substernal, pressure-like, short lived with no exertional component. Reports mild dyspnea on exertion. BP optimal. No palpitations, presyncope or syncope. Labs:08/26/2024: ProBNP 314, LDL 35, HDL 37, TG 158, cholesterol 99, BUN 20, creatinine 0.92, EGFR 67, sodium 144, potassium 4.1, chloride 99, CO2 31, albumin 4.4, AST 24, ALT 31, HGB A1c 6.6, TSH 1.26 April 2024:TSH 3.19, HGB A1c 6.3, hemoglobin 13.0, WBC 7.2, platelet 277, sodium 143, potassium 4.4, chloride 100, CO2 37, BUN 28, creatinine 1.13, EGFR 52, AST 23, ALT 22, LDL 168, VLDL 39, HDL 45, total cholesterol 225, TG 193 Cardiac diagnostics:Lexiscan nuclear stress test, 09/29/2024: No fixed or reversible perfusion defect, normal TID, LVEF 1.15 Transthoracic echocardiogram, 09/02/2024:LVEF 60-65%, grade 1 diastolic dysfunction, global longitudinal strain normal at -18.1, mild mitral annular calcification with no significant mitral regurgitation, trace-mild aortic regurgitation, RVSP 37 mmHg Twelve lead EKG008/25/2024: Sinus rhythm, right bundle-branch block, left anterior fascicular block Coronary CTA, [facility], July 2022: OM1, mild focal 24-49% stenosis with calcium score 25 Lexiscan nuclear stress test, 2020: Small partial reversible lateral wall perfusion defect Transthoracic echocardiogram, April 2021:LVEF 65%, mild concentric LVH with E/A reversal consistent with grade 1 diastolic dysfunction, normal left atrial size, trace aortic regurgitation Richa Diaz MD Attn: Accounting[address] [place], [address], [place] 10/07/2024 16:01:21 11/03/2024 text/html Patient presents to the clinic to establish care with her daughter in law. Patient was previously established with Dr. Varela for primary care.Other providers:Dr. Diaz-CardiologyPati ent declined spanish interpreter/translator, patient prefers to use her daughter in law for translation. -Medical Hx/Surgical Hx: depression, hypertension, hyperlipidemia, hypothyroidism, CHACHA, DMII, cholecystectomy, hepatic steatosis, headaches, 4 pregnancies-4 vaginal deliveries-2 living children. -Family hx:Mother: -diabetes mellitus, essential hypertensionFather: -MIMaternal Grandmother: -unknownMater nal Grandfather: -unknownPater nal Grandmother: -unknownPater nal Grandfather: -unknown2 sons passed of [place] -Tobacco/Drug/Alcohol Use:Denies history of tobacco, drug, or alcohol use. Chicken pox: Reports history of chicken pox Marital status: Sexually active: No Occupation: unemployed Highest level of education: 12th grade Allergies: NKDA SILKE BEARD, RESIDENTIAL ROOFER-BC Attn: Accounting[address] [place], [address], [facility] 11/20/2024 16:09:09 12/08/2024 text/html Pleasant 75-year -old accompanied by her daughter who is acting as spanish interpreter/translator as patient is from [place] and does not speak [place]. History of medically managed CAD, type 2 diabetes, hypertension, mixed hyperlipidemia, morbid obesity, CHACHA, diastolic dysfunction, hypothyroidism Interval history:Feels significantly improved. Daughter in-law providing collateral history. No chest pain or pressure. NYHA class 1. Was able to work in her yard for over 2 hours this weekend. Blood pressure optimal. No bleeding diathesis. On Ozempic 0.25 and not noticing significant changes in weight. Cardiac diagnostics:Lexiscan nuclear stress test, 09/29/2024: No fixed or reversible perfusion defect, normal TID, LVEF 1.15 Transthoracic echocardiogram, 09/02/2024:LVEF 60-65%, grade 1 diastolic dysfunction, global longitudinal strain normal at -18.1, mild mitral annular calcification with no significant mitral regurgitation, trace-mild aortic regurgitation, RVSP 37 mmHg Twelve lead EKG008/25/2024: Sinus rhythm, right bundle-branch block, left anterior fascicular block Coronary CTA, [facility], July 2022: OM1, mild focal 24-49% stenosis with calcium score 25 Lexiscan nuclear stress test, 2020: Small partial reversible lateral wall perfusion defect Transthoracic echocardiogram, April 2021:LVEF 65%, mild concentric LVH with E/A reversal consistent with grade 1 diastolic dysfunction, normal left atrial size, trace aortic regurgitation Richa Marcelino, MD Attn: [address] [facility], [place], [address], [facility] 12/08/2024 15:43:21 OBGyn Episode No OBEpisode recorded.
--- OUTSIDE RECORDS SUMMARY | 2024-12-11 14:13 | XMS_ITS | Encounter Summary ---
Author Organization [facility] Address [address] [place] [address] Phone Care Team Providers Care Rodeo Clown Name Role Phone Sandeep Poole MD Primary Care Provider Griselda Licona APRN, ISRA Unavailable Reason for Visit * Reason Onset Date Comments Prior Authorization 06/25/2024 Auth pending Ordering Provider: InternalAppointment Info:Clinic: [facility] Provider: [facility] Appt Date/Time: Sunday 7:30 PM Payor + Plan: MEDICAID [facility] MEDICAIDLabor Fund?: No(If yes: verify auth requirement with fund office.) Facility for Auth: [facility]?: YesCPT(s): 12835Chvemgd Reference #: [id number] Date(s): Authorization requir Encounter Details Date Type Department Care Team ([facility] Contact Info) Description 06/25/2024 Telephone [facility] Outpatient [address] [place] [address] Griselda Licona APRN, ACCOUNTING ADMINISTRATOR #[address] [address] Prior Authorization (Auth pending//Ordering Provider: Internal//Appointment Info:/Clinic: [facility] /Provider: [facility] Appt Date/Time: Sunday 7:30 PM/ / //Payor + Plan: MEDICAID [facility] MEDICAID//Labor Fund?: No/(If yes: verify auth requirement with fund office.) //Facility for Auth: [facility]/Facility In Network?: Yes//CPT(s): 62851/Pending Reference #: [id number]/Valid Date(s): //Authorization requir) Social History Tobacco Use Types Packs/Day Years Used Date Smoking Tobacco: Never Smokeless Tobacco: Never Alcohol Use Standard Drinks/Week Comments Never 0 (1 standard drink = 0.6 oz pur e alcohol) Comments Unknown Sex and Gender Information Value Date Recorded Sex Assigned at Not on file Legal Sex Female 4:06 PM CDT Gender Identity Not on file Sexual Orientation Not on file documented as of this encounter Miscellaneous Notes * Telephone Encounter - Soledad Flores - 06/25/2024 10:29 AM CST Auth pending Ordering Provider: Internal Appointment Info: Clinic: [facility] Provider: [facility] Appt Date/Time: Sunday 7:30 PM Payor + Plan: MEDICAID [facility] MEDICAID Labor Fund?: No (If yes: verify auth requirement with fund office.) Facility for Auth: [facility] Facility In Network?: Yes CPT(s): 86723 Pending Reference #: [id number] Valid Date(s): Authorization requirement verified by: [facility] MEDICAID Authorization requested through: [employer] Clinical[employer] submitted today: Yes If yes, Upload If pending, is provider intervention required to obtain authorization? (Y N): YES If yes, please call: [phone] (Paste screenshot into referral if verified by website.) Steps Taken (contacted providers office/patient, etc): SENT TE TO PROVIDER AND NURSE POOL TO NOTIFYOF PENDING STATUS 2 DAYS BEFORE APPT ICIDE SPRAYER documented in this encounter Plan of Treatment Not on file documented as of this encounter Visit Diagnoses Not on filedocumented in this encounter Care Teams Rodeo Clown Relationship Specialty Start Date End Date Sandeep Poole MD [address] [place] [address] PCP - General Internal Medicine 05/06/24 Griselda Licona APRN, ISRA #[address] [address] Nurse Practitioner Advanced Practice Nurse 05/27/24 documented as of this encounter
== END 2024-12-11 14:07 | disposition home or self-care (01) ==
LOC: CHSIMG 14:11
DX: Z12.31 Encounter for screening mammogram for malignant neoplasm of breast (principal); Z78.0 Asymptomatic menopausal state; M85.89 Other specified disorders of bone density and structure, multiple sites; R92.8 Other abnormal and inconclusive findings on diagnostic imaging of breast
CPT/HCPCS: 77063; 77067; 77080